=== PATIENT | female | born 1955 | race Caucasian/White ===

== ENCOUNTER 2016-12-24 13:41 | Inpatient (IN) | payer OTHER ==
[~2016-12-24] VITALS: Ht 160 cm; Wt 50.6 kg
[~2016-12-24 13:41] MED LIST: ALBUAER; ASPI325T45 PO; BECL0.3A INH; CARV6.252 PO; DULO60CA44 PO; INSUINJ12 SC; LEVO100T PO; LSN/2025 PO; METF-384 PO; NRN/300 PO; NVLGI SC; SUMA25TA; TOPI50TA24 PO; TRAM-453 PO; duoneb NEB
[2016-12-24] MEDS ORDERED: PROC1TAB5 PO (14:02)
[2016-12-24] MEDS ORDERED: DICY10CA12 PO (14:02)
[2016-12-24] MEDS ORDERED: ALBUAER INH (14:02)
[2016-12-24] MEDS ORDERED: PANC1200 PO (14:02)
[2016-12-24] MEDS ORDERED: TOPI100T20 PO (14:02)
[2016-12-24] MEDS ORDERED: LISI10TA PO (14:02)
[2016-12-24] MEDS ORDERED: SYMIN160 INH (14:02)
[2016-12-24] MEDS ORDERED: XLD/500 PO (14:02)
[2016-12-24] MEDS ORDERED: RIZA5TAB10 PO (14:02)
[2016-12-24] MEDS ORDERED: IPRASOL4 INH (14:02)
[2016-12-24] MEDS ORDERED: CHOL4POW12 PO (14:02)
[2016-12-24] MEDS ORDERED: LORA-741 PO (14:02)
[2016-12-24] MEDS ORDERED: OXYC1TAB3 PO (14:02)
[2016-12-24] MEDS ORDERED: SUCR1TAB PO (14:02)
[2016-12-24] MEDS ORDERED: DIPH-416 PO (14:02)
[2016-12-24] MEDS ORDERED: IBUP-1050 PO (14:02)
[2016-12-24] MEDS ORDERED: SODIUM CHLORIDE 0.9% 1000ML 1,000 ML IV ONE (14:10)
[2016-12-24] MEDS ORDERED: SODIUM CHLORIDE 0.9% 1000ML 1,000 ML IV STA (14:10)
--- NOTE | 2016-12-24 14:25 | EMERGENCY ROOM VISIT NOTE ---
History Report prepared by Javier: Sp Farias Under the Supervision of: Dr. Danny Kinney M.D. First contact with patient: 13:51 Chief Complaint: INFECTION Stated Complaint: INFECTION, DEHYDRATION History of Present Illness The patient is a 61 year old female who presents to the Emergency Room with complaints of worsening diarrhea and fever for the past six days. The patient states that she currently is being treated for pancreatic cancer. She states that her fevers got to 101.4, and she additionally has been nauseous, been vomiting minimally, shortness of breath while walking, and a cough. The patient denies any headache, urinary symptoms, melena, and hematochezia. She states that no one else around her is sick, and she is not on blood thinners. She states that she has not been able to eat or drink. The patient states that she has a history of a Whipple procedure on August 16, chronic pancreatitis, and she had chemo two weeks ago. Source of History: patient Onset: 6 days ago Position: other (global) Quality: other (fever and diarrhea) Timing: worsening Associated Symptoms: + cough, + SOB, + nausea, + vomiting, No headache, No melena, No hematochezia, No urinary symptoms Review of Systems See HPI for pertinent positives & negatives. A total of 10 systems reviewed and were otherwise negative. Past Medical & Surgical Medical Problems: (1) Chronic pancreatitis (2) Dehydration (3) GERD (gastroesophageal reflux disease) (4) HTN (hypertension) (5) Hypothyroidism (6) Insulin dependent diabetes mellitus (7) Leukocytosis (8) Pancreatic cancer (9) RLS (restless legs syndrome) Surgical Problems: (1) H/O dilation and curettage (2) H/O exploratory laparotomy (3) History of hysterectomy (4) Hx of tonsillectomy (5) Whipple procedure Old medical records were reviewed. Nurse's notes were reviewed and I agree with. Family History Diabetes mellitus FH: heart disease Hypertension Social History Smoking Status: Former Smoker Drug Use: none Marital Status: Housing Status: lives with significant other Occupation Status: retired Current/Historical Medications Scheduled Budesonide/Formoterol Fumarate (Symbicort 160/4.5 Inhaler ), 2 PUFFS INH BID Capecitabine (Xeloda), 500 MG PO UD Duloxetine Hcl (Cymbalta), 60 MG PO DAILY Levothyroxine Sodium (Synthroid), 100 MCG PO DAILY Lisinopril (Prinivil), 10 MG PO DAILY Sucralfate (Sucralfate), 1 GM PO BID Topiramate (Topamax), 50 MG PO HS Scheduled PRN Albuterol Sulfate (Proventil Hfa), 2 PUFFS INH Q4 PRN for SOB/Wheezing Dicyclomine Hcl (Dicyclomine Hcl), 10 MG PO Q8 PRN for abdominal pain Diphenoxylate/Atropine (Lomotil), 1 TAB PO QID PRN for Diarrhea Ibuprofen (Advil), 200 MG PO Q4 PRN for Pain Ipratropium-Albuterol (Duoneb), 1 TREATMENT INH Q4H PRN for Shortness of Breath Lorazepam (Ativan), 0.5 MG PO Q12 PRN for ANXIETY/INSOMNIA Ondansetron Hcl (Zofran), 4 MG PO Q8 PRN for Nausea Oxycodone Ir (Roxicodone Ir), 5-10 MG PO Q4 PRN for Moderate Pain Prochlorperazine Maleate (Compazine), 10 MG PO Q6H PRN for NAUSEA Rizatriptan Benzoate (Maxalt), 5 MG PO UD PRN for Migraine Tramadol Hcl (Ultram), 50 MG PO Q4H PRN for Pain Allergies Coded Allergies: Penicillins (Verified Allergy, Severe, ANAPHYLAXIS, 12/24/16) Sulfa Antibiotics (Verified Allergy, Severe, ANAPHYLAXIS, 12/24/16) Moxifloxacin (Verified Allergy, Intermediate, ITCHINESS/SKIN IRRITATION, ) Nickel (Unverified Allergy, Unknown, LOCAL SKIN IRRIRATION, 12/24/16) Physical Exam Vital Signs Date Time Temp Pulse Resp B/P (MAP) Pulse Ox O2 Delivery O2 Flow Rate FiO2 12/24/16 18:02 97 Room Air 12/24/16 17:35 105 12 142/94 97 Room Air 12/24/16 15:30 85 15 127/68 100 Room Air 12/24/16 13:43 36.4 110 20 115/76 98 Room Air Physical Exam General: Chronically ill-appearing, somewhat cachectic appearing older female. No acute distress. HEENT: Normal cephalic atraumatic. Pupils are equal round and reactive to light. Sclerae anicteric. Extraocular movements are intact. Oropharynx is pink with moist mucous membranes. No swelling of the mouth lips or tongue. Neck: Supple with a midline trachea. No meningeal signs or stiffness, no JVD or bruits. No Stridor. Chest: A-port in the right chest. Clear to auscultation bilaterally. No wheezes or rhonchi. No increased work of breathing. Heart: regular rate and rhythm. Abdomen: Soft nontender, nondistended without rebound guarding or rigidity. Extremities: No cyanosis clubbing or edema. No calf tenderness or assymetry Spine/Back. Non tender to palpation. No CVA tenderness Skin: Good turgor without rashes. Neurologic exam: Cranial nerves two through 12 are intact. Motor and sensation are intact and symmetrical throughout. Medical Decision & Procedures ER Provider Diagnostic Interpretation: Radiology results as stated below per my review and radiologist interpretation: CHEST ONE VIEW PORTABLE CLINICAL HISTORY: 61 years-old Female presenting with CHEST PAIN. TECHNIQUE: Portable upright AP view of the chest was obtained. COMPARISON: None. FINDINGS: Right internal jugular Mediport terminates in the superior vena cava. Minimal atherosclerosis of the aortic arch. Cardiomediastinal silhouette otherwise normal. Lungs and pleural spaces clear. Osseous structures normal. Partially visualized catheter projects over the epigastrium. IMPRESSION: 1. No acute cardiopulmonary disease. Electronically signed by: Shane Austin M.D. 12/24/2016 2:36 PM Dictated Date/Time: 12/24/2016 2:34 PM ABD/PELVIS NO IV OR ORAL CONT CT DOSE: 210.32 mGycm HISTORY: Pain diffuse abd pain TECHNIQUE: Multiaxial CT images of the abdomen and pelvis were performed without contrast. A dose lowering technique was utilized adhering to the principles of ALARA. COMPARISON STUDY: None FINDINGS: Lung bases are clear. Fatty replacement of the liver. Air within the biliary ductal system presumably secondary to prior cholecystectomy and sphincterotomy. Stent within the pancreatic duct. Kidneys negative for hydronephrosis. Mild generalized distention of the small bowel as well as colon. Mild hyperplastic change of the adrenals. Several nonspecific mesenteric nodes. No evidence for colonic or sigmoid distention. An obstructing lesion within the colon is not identified. There appears to be wall thickening of the gastric body with evidence for a probable anastomosis and/or partial gastric resection. Slight body wall anasarca. Degenerative change of the osseous structures throughout. IMPRESSION: 1. Considerable postoperative change consistent with what is potentially a partial gastric resection, wall thickening of the residual stomach, as well as evidence for pancreatic drainage tube or stent placement and air within the biliary ductal system presumably secondary to prior sphincterotomy 2. Fatty infiltration of the liver. 3. General colonic and small bowel ileus versus the possibility of a distal colonic obstructive process. 4. Mild body wall anasarca. 5. No evidence for ascites, pneumatosis, or free air. 6. No evidence for abscess or collection. The above report was generated using voice recognition software. It may contain grammatical, syntax or spelling errors. Electronically signed by: Isai Meyer M.D. 12/24/2016 4:31 PM Dictated Date/Time: 12/24/2016 4:25 PM Laboratory Results 12/24/16 16:29 Red Blood Count 2.81, Mean Corpuscular Volume 84.3, Mean Corpuscular Hemoglobin 29.2, Mean Corpuscular Hemoglobin Concent 34.6, Mean Platelet Volume 9.2 12/24/16 16:29 Test 12/24/16 15:00 12/24/16 15:32 12/24/16 16:29 Nucleated RBC Absolute Count (auto) 0.03 K/uL (0-0) Nucleated Red Blood Cells % 0.3 % Bedside Lactic Acid Venous 1.01 mmol/L (0.90-1.70) White Blood Count 20.20 K/uL (4.8-10.8) Red Blood Count 2.81 M/uL (4.2-5.4) Hemoglobin 8.2 g/dL (12.0-16.0) Hematocrit 23.7 % (37-47) Mean Corpuscular Volume 84.3 fL (80-100) Mean Corpuscular Hemoglobin 29.2 pg (25-34) Mean Corpuscular Hemoglobin Concent 34.6 g/dl (32-36) Platelet Count 703 K/uL (130-400) Mean Platelet Volume 9.2 fL (7.4-10.4) RDW Standard Deviation 55.0 fL (36.4-46.3) RDW Coefficient of Variation 19.1 % (11.5-14.5) Neutrophils % (Manual) 74.1 % Lymphocytes % (Manual) 11.6 % Monocytes % (Manual) 11.6 % Eosinophils % (Manual) 0.9 % Metamyelocytes % 1.8 % Neutrophils # (Manual) 14.97 K/uL (1.4-6.5) Total Absolute Neutrophils 14.97 K/uL (1.4-6.5) Lymphocytes # (Manual) 2.34 K/uL (1.2-3.4) Total Absolute Lymphocytes 2.34 K/uL (1.2-3.4) Monocytes # (Manual) 2.34 K/uL (0.11-0.59) Eosinophils # (Manual) 0.18 K/uL (0-0.5) Metamyelocytes # 0.36 K/uL (0-0) Dohle Bodies 1+ Anisocytosis PRESENT Ovalocytes 1+ Urine Color YELLOW Urine Appearance CLEAR (CLEAR) Urine pH 6.0 (4.5-7.5) Urine Specific [place] 1.015 (1.000-1.030) Urine Protein TRACE (NEG) Urine Glucose (UA) NEG (NEG) Urine Ketones NEG (NEG) Urine Occult Blood NEG (NEG) Urine Nitrite NEG (NEG) Urine Bilirubin NEG (NEG) Urine Urobilinogen NEG (NEG) Urine Leukocyte Esterase NEG (NEG) Urine WBC (Auto) 10-30 /hpf (0-5) Urine RBC (Auto) 0-4 /hpf (0-4) Urine Hyaline Casts (Auto) 1-5 /lpf (0-5) Urine Epithelial Cells (Auto) 10-20 /lpf (0-5) Urine Bacteria (Auto) NEG (NEG) Anion Gap 11.0 mmol/L (3-11) Est Creatinine Clear Calc Drug Dose 43.4 ml/min Estimated GFR () 74.1 Estimated GFR (Non- 63.9 BUN/Creatinine Ratio 13.3 (10-20) Calcium Level 7.8 mg/dl (8.5-10.1) Magnesium Level 1.6 mg/dl (1.8-2.4) Total Bilirubin 0.2 mg/dl (0.2-1) Direct Bilirubin < 0.1 mg/dl (0-0.2) Aspartate Amino Transf (AST/SGOT) 10 U/L (15-37) Alanine Aminotransferase (ALT/SGPT) 11 U/L (12-78) Alkaline Phosphatase 86 U/L (45-117) Troponin I < 0.015 ng/ml (0-0.045) Total Protein 4.0 gm/dl (6.4-8.2) Albumin 1.4 gm/dl (3.4-5.0) Lipase 185 U/L (73-393) Hepatitis C Antibody Screen NEG (NEG) Laboratory studies as stated above per my review. Medications Administered Medications (Trade) Dose Ordered Sig/Jesse Route Start Time Stop Time Status Last Admin Dose Admin Sodium Chloride 1,000 ml @ 999 mls/hr Q1H1M STAT IV 12/24/16 14:10 12/24/16 15:10 DC 12/24/16 14:10 999 MLS/HR Sodium Chloride 1,000 ml @ 200 mls/hr Q5H ONCE IV 12/24/16 14:10 12/24/16 19:09 DC 12/24/16 14:10 200 MLS/HR Levofloxacin (Levaquin / D5W) 750 mg NOW STAT IV 12/24/16 16:54 12/24/16 16:56 DC 12/24/16 17:12 750 MG Potassium Chloride (Klor-Con M10) 40 meq NOW STAT PO 12/24/16 17:18 12/24/16 17:36 DC 12/24/16 17:44 40 MEQ Potassium Chloride (Kcl 10 Meq / Wtr) 20 meq STK-MED ONCE IV 12/24/16 17:40 12/24/16 17:41 DC 12/24/16 17:44 20 MEQ Prochlorperazine Maleate (Compazine Tab) 10 mg STK-MED ONCE .ROUTE 12/24/16 18:01 12/24/16 18:02 DC 12/24/16 18:03 10 MG ECG Indication: other Rate (beats per minute): 88 Rhythm: normal sinus Findings: no acute ischemic change, no ectopy, other (Low voltage QRS, Non specific T wave abnormality) ED Course 1351: Past medical records reviewed. The patient was evaluated in room B2, and a complete history and physical examination were performed. 1410: Sodium Chloride 1000 ml @ 200 mls/hr IV, Sodium Chloride 1000 ml @ 999 mls /hr IV 1650: I reevaluated the patient, and she was resting 1654: Levofloxacin 750mg IV 1707: Discussed the patient's case with Dianne Dhillon PA-C. The patient will be evaluated for further management. Medical Decision Differentials include, but are not limited to; sepsis, dehydration, pancreatitis , C diff, electrolyte or metabolic abnormality. This patient comes in as described above. She has a complicated history of advanced pancreatic cancer and has felt sick since last week she had had diarrhea she's had a fever however is not had a fever for about 5 days she feels weak and dehydrated. She had blood work done today which shows an elevated white count as well as a low CO2. She's had some mild intermittent abdominal pain at times. She appears chronically ill on exam but nontoxic otherwise. Her a port was accessed blood cultures were obtained and lactic acid was not significantly elevated. Her white count was elevated 20,000 however. She's had nothing to suggest pneumonia. She has nothing to suggest acute coronary syndrome or significant arrhythmia. She had a CAT scan which shows an ileus. I did give her Levaquin IV for possible sepsis. She has multiple significant antibiotic allergies and tells me she's had Levaquin before. Stool studies have been obtained recently were negative for C. difficile. I did repeat those here as well as well as blood cultures. I do think she needs be admitted for hydration and to rule out sepsis or other pathology. I have consulted the [facility] hospitalist and she was seen in the ER. Medication Reconcilliation Current Medication List: was personally reviewed by me Blood Pressure Screening Patient's blood pressure: Normal blood pressure Consults Time Called: 1658 Consulting Physician: Piper Eden PA-C Returned Call: [phone] Discussed the patient's case with Dianne Dhillon PA-C. The patient will be evaluated for further management. Impression Primary Impression: Sepsis Additional Impressions: Dehydration Diarrhea Pancreatic cancer Scribe Attestation The scribe's documentation has been prepared under my direction and personally reviewed by me in its entirety. I confirm that the note above accurately reflects all work, treatment, procedures, and medical decision making performed by me. Departure Information Dispostion Being Evaluated By Hospitalist Referrals Kevin Malhotra DO (PCP) Patient Instructions My [facility] Problem Qualifiers
--- NOTE | 2016-12-24 14:37 | DIAGNOSTIC IMAGING REPORT ---
CHEST ONE VIEW PORTABLE CLINICAL HISTORY: 61 years-old Female presenting with CHEST PAIN. TECHNIQUE: Portable upright AP view of the chest was obtained. COMPARISON: None. FINDINGS: Right internal jugular Mediport terminates in the superior vena cava. Minimal atherosclerosis of the aortic arch. Cardiomediastinal silhouette otherwise normal. Lungs and pleural spaces clear. Osseous structures normal. Partially visualized catheter projects over the epigastrium. IMPRESSION: 1. No acute cardiopulmonary disease. Electronically signed by: Shane Austin M.D. 12/24/2016 2:36 PM Dictated Date/Time: 12/24/2016 2:34 PM
[2016-12-24 16:15] LABS: COMPLETE YES
--- NOTE | 2016-12-24 16:32 | DIAGNOSTIC IMAGING REPORT ---
ABD/PELVIS NO IV OR ORAL CONT CT DOSE: 210.32 mGycm HISTORY: Pain diffuse abd pain TECHNIQUE: Multiaxial CT images of the abdomen and pelvis were performed without contrast. A dose lowering technique was utilized adhering to the principles of ALARA. COMPARISON STUDY: None FINDINGS: Lung bases are clear. Fatty replacement of the liver. Air within the biliary ductal system presumably secondary to prior cholecystectomy and sphincterotomy. Stent within the pancreatic duct. Kidneys negative for hydronephrosis. Mild generalized distention of the small bowel as well as colon. Mild hyperplastic change of the adrenals. Several nonspecific mesenteric nodes. No evidence for colonic or sigmoid distention. An obstructing lesion within the colon is not identified. There appears to be wall thickening of the gastric body with evidence for a probable anastomosis and/or partial gastric resection. Slight body wall anasarca. Degenerative change of the osseous structures throughout. IMPRESSION: 1. Considerable postoperative change consistent with what is potentially a partial gastric resection, wall thickening of the residual stomach, as well as evidence for pancreatic drainage tube or stent placement and air within the biliary ductal system presumably secondary to prior sphincterotomy 2. Fatty infiltration of the liver. 3. General colonic and small bowel ileus versus the possibility of a distal colonic obstructive process. 4. Mild body wall anasarca. 5. No evidence for ascites, pneumatosis, or free air. 6. No evidence for abscess or collection. The above report was generated using voice recognition software. It may contain grammatical, syntax or spelling errors. Electronically signed by: Isai Meyer M.D. 12/24/2016 4:31 PM Dictated Date/Time: 12/24/2016 4:25 PM
[2016-12-24 16:47] LABS: HEMATOCRIT 23.7 % (37-47); MEAN CELL VOLUME 84.3 fL (80-100); MEAN CORPUSCULAR HEMOGLOBIN 29.2 pg (25-34); MEAN CORPUSCULAR HGB CONC 34.6 g/dl (32-36); MEAN PLATELET VOLUME 9.2 fL (7.4-10.4); PLATELET COUNT 703 K/uL (130-400); RED BLOOD COUNT 2.81 M/uL (4.2-5.4)
[2016-12-24 16:52] LABS: URINE APPEARANCE CLEAR (CLEAR); URINE BILIRUBIN NEG (NEG); URINE COLOR YELLOW; URINE NITRITE NEG (NEG); URINE SPECIFIC GRAVITY 1.015 (1.000-1.030); UROBILINOGEN NEG (NEG)
[2016-12-24 16:54] LABS: MANUAL MICROSCOPIC REQUIRED? NO; REVIEW REQ? NO
[2016-12-24] MEDS ORDERED: LEVAQUIN 750MG / 150ML D5W IV STA (16:54)
[2016-12-24 17:05] LABS: ALT/SGPT 11 U/L (12-78); BLOOD UREA NITROGEN 13 mg/dl (7-18); BUN/CREATININE RATIO 13.3 (10-20); CALCIUM 7.8 mg/dl (8.5-10.1); CARBON DIOXIDE 16 mmol/L (21-32); CHLORIDE 114 mmol/L (98-107); CREATININE 0.97 mg/dl (0.60-1.20); GLUCOSE 140 mg/dl (70-99); POTASSIUM 2.6 mmol/L (3.5-5.1); SODIUM 141 mmol/L (136-145)
[2016-12-24 17:10] LABS: ALKALINE PHOSPHATASE 86 U/L (45-117); AST/SGOT 10 U/L (15-37)
[2016-12-24] MEDS ORDERED: POTASSIUM CHLORIDE 10 MEQ TABCR PO STA (17:18)
[2016-12-24 17:29] LABS: ANISOCYTOSIS PRESENT; COMPLETE YES; DOHLE BODIES 1+; EOSINOPHIL % 0.9 %; LYMPH ABS # 2.34 K/uL (1.2-3.4); LYMPHOCYTE % 11.6 %; META ABS # 0.36 K/uL (0-0); METAMYELOCYTE % 1.8 %; NEUTROPHILS % 74.1 %; OVALOCYTES 1+
[2016-12-24] MEDS ORDERED: POTASSIUM CHLORIDE 10 MEQ / 100ML WTR IV ONE (17:40)
[2016-12-24] MEDS ORDERED: TPM/50 PO (17:58)
[2016-12-24] MEDS ORDERED: ONDA4TAB46 PO (17:58)
[2016-12-24] MEDS ORDERED: PROCHLORPERAZINE MALEATE 5 MG TAB ONE (18:01)
[2016-12-24 18:02] VITALS: O2SAT 97; Ht 160 cm; Wt 50.6 kg
[2016-12-24] MEDS ORDERED: ONDANSETRON INJ 2 MG/ML 2 ML VIAL IV PRN (18:15)
[2016-12-24] MEDS ORDERED: OXYCODONE HCL IR 5 MG TAB (IMMEDIATE RELEASE) PO PRN (18:30)
[2016-12-24] MEDS ORDERED: DEXTROSE 50% 50 ML SYR IV PRN (18:30)
[2016-12-24] MEDS ORDERED: GLUCAGON FOR INJ 1 MG VIAL SQ PRN (18:30)
[2016-12-24] MEDS ORDERED: ALBUTEROL HFA 8 GM INHALER INH PRN (18:30)
[2016-12-24] MEDS ORDERED: GLUCOSE 40% GEL 15 GM TUBE PO PRN (18:30)
[2016-12-24] MEDS ORDERED: GLUCOSE 10 TABS/TUBE PO PRN (18:30)
[2016-12-24] MEDS ORDERED: ALBUT/IPRATROP 3MG/0.5MG NEB 3 ML VIAL INH PRN (18:30)
[2016-12-24 19:14] VITALS: O2SAT 100
[2016-12-24 19:30] VITALS: BP 161/82; PULSE 88; TEMP 36.5; O2SAT 100
[2016-12-24] MEDS ORDERED: PROCHLORPERAZINE MALEATE 10 MG TAB PO ONE (20:00)
[2016-12-24] MEDS ORDERED: POTASSIUM CHLORIDE 10 MEQ TABCR PO ONE (20:00)
--- NOTE | 2016-12-24 20:11 | History and Physical ---
History & Physical Date & Time of Service: Dec 24, 2016 at 18:26 Chief Complaint: Infection, Dehydration Primary Care Physician: Kevin Malhotra DO History of Present Illness Source: patient, clinic records This is a 61 y/o female with PMH of pancreatic cancer s/p Whipple on chemotherapy and other problems listed below who presents to the ED with diarrhea. Patient follows with Dr. Gagan Goldstein for oncology. Patient last received IV chemo on 12/10 and last oral chemo was completed on 12/06. She was seen by Lyndsay Chen PA-C at clinic today then was sent to the ER instead of getting her chemo treatment. Patient reports worsening of chronic diarrhea starting 5 days ago with up to 20 liquid BM per day. She had two days of fever ( Tmax 101.4) and chills, with last fever 5 days ago. She reports associated weight loss of 10 lb in the past week (on top of 80 lb wt loss since CA dx), CHUA , lightheadedness, fatigue. States she "can't keep anything in" including food and liquids due to diarrhea. She was taking several tabs of Lomotil per day. Last BM was last night. Passing small amount of flatus today. Pt denies HODGE, URI symptoms, cough, SOB, chest pain, abdominal pain, hematochezia, melena, urinary changes, rash, edema. Denies issues w/ her port. Last abx were several months ago when she was treated with vancomycin for her second episode of C. diff. Patient states she was tested for C. 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 Past Medical/Surgical History Medical Problems: (1) Chronic pancreatitis Status: Chronic (2) GERD (gastroesophageal reflux disease) Status: Chronic (3) HTN (hypertension) Status: Chronic (4) Hypothyroidism Status: Chronic (5) Insulin dependent diabetes mellitus Status: Chronic (6) Pancreatic cancer Status: Chronic (7) RLS (restless legs syndrome) Status: Chronic Surgical Problems: (1) H/O dilation and curettage Status: Chronic (2) H/O exploratory laparotomy Status: Chronic (3) History of hysterectomy Status: Chronic (4) Hx of tonsillectomy Status: Chronic (5) Whipple procedure Status: Chronic Family History Diabetes mellitus FH: heart disease Hypertension Social History Smoking Status: Former Smoker Alcohol Use: none Drug Use: none Marital Status: Housing status: lives with significant other Occupational Status: retired Allergies Coded Allergies: Penicillins (Verified Allergy, Severe, ANAPHYLAXIS, 12/24/16) Sulfa Antibiotics (Verified Allergy, Severe, ANAPHYLAXIS, 12/24/16) Moxifloxacin (Verified Allergy, Intermediate, ITCHINESS/SKIN IRRITATION, ) Nickel (Unverified Allergy, Unknown, LOCAL SKIN IRRIRATION, 12/24/16) Home Medications Scheduled Budesonide/Formoterol Fumarate (Symbicort 160/4.5 Inhaler ), 2 PUFFS INH BID Capecitabine (Xeloda), 500 MG PO UD Duloxetine Hcl (Cymbalta), 60 MG PO DAILY Levothyroxine Sodium (Synthroid), 100 MCG PO DAILY Lisinopril (Prinivil), 10 MG PO DAILY Sucralfate (Sucralfate), 1 GM PO BID Topiramate (Topamax), 50 MG PO HS Scheduled PRN Albuterol Sulfate (Proventil Hfa), 2 PUFFS INH Q4 PRN for SOB/Wheezing Dicyclomine Hcl (Dicyclomine Hcl), 10 MG PO Q8 PRN for abdominal pain Diphenoxylate/Atropine (Lomotil), 1 TAB PO QID PRN for Diarrhea Ibuprofen (Advil), 200 MG PO Q4 PRN for Pain Ipratropium-Albuterol (Duoneb), 1 TREATMENT INH Q4H PRN for Shortness of Breath Lorazepam (Ativan), 0.5 MG PO Q12 PRN for ANXIETY/INSOMNIA Ondansetron Hcl (Zofran), 4 MG PO Q8 PRN for Nausea Oxycodone Ir (Roxicodone Ir), 5-10 MG PO Q4 PRN for Moderate Pain Prochlorperazine Maleate (Compazine), 10 MG PO Q6H PRN for NAUSEA Rizatriptan Benzoate (Maxalt), 5 MG PO UD PRN for Migraine Tramadol Hcl (Ultram), 50 MG PO Q4H PRN for Pain Review of Systems Ten systems reviewed and negative except as noted in HPI. Physical Exam Vital Signs Date Time Temp Pulse Resp B/P (MAP) Pulse Ox O2 Delivery O2 Flow Rate FiO2 12/24/16 18:02 97 Room Air 12/24/16 17:35 105 12 142/94 97 Room Air 12/24/16 15:30 85 15 127/68 100 Room Air 12/24/16 13:43 36.4 110 20 115/76 98 Room Air General Appearance: no apparent distress, + cachetic, + pertinent finding ( alert cooperative chronically ill 61 y/o female, at bedside) Head: normocephalic, atraumatic Eyes: normal inspection, PERRL, EOMI ENT: hearing grossly normal, pharynx normal Neck: no adenopathy, trachea midline Respiratory/Chest: lungs clear, normal breath sounds, no respiratory distress, no accessory muscle use, + pertinent finding (port in left chest, no eythema ) Cardiovascular: regular rate, rhythm, no murmur Abdomen/GI: normal bowel sounds, non tender, soft Back: no CVA tenderness Extremities/Musculoskelatal: no calf tenderness, no pedal edema Neurologic/Psych: alert, normal mood/affect, oriented x 3 Skin: normal color, warm/dry Diagnostics Laboratory Results Results Past 24 Hours Test 12/24/16 15:00 12/24/16 15:32 12/24/16 16:29 Range/Units White Blood Count 20.20 4.8-10.8 K/uL Red Blood Count 2.81 4.2-5.4 M/uL Hemoglobin 8.2 12.0-16.0 g/dL Hematocrit 23.7 37-47 % Mean Corpuscular Volume 84.3 80-100 fL Mean Corpuscular Hemoglobin 29.2 25-34 pg Mean Corpuscular Hemoglobin Concent 34.6 32-36 g/dl Platelet Count 703 130-400 K/uL Mean Platelet Volume 9.2 7.4-10.4 fL RDW Standard Deviation 55.0 36.4-46.3 fL RDW Coefficient of Variation 19.1 11.5-14.5 % Nucleated RBC Absolute Count (auto) 0.03 0-0 K/uL Nucleated Red Blood Cells % 0.3 % Bedside Lactic Acid Venous 1.01 0.90-1.70 mmol/L Neutrophils % (Manual) 74.1 % Lymphocytes % (Manual) 11.6 % Monocytes % (Manual) 11.6 % Eosinophils % (Manual) 0.9 % Metamyelocytes % 1.8 % Neutrophils # (Manual) 14.97 1.4-6.5 K/uL Total Absolute Neutrophils 14.97 1.4-6.5 K/uL Lymphocytes # (Manual) 2.34 1.2-3.4 K/uL Total Absolute Lymphocytes 2.34 1.2-3.4 K/uL Monocytes # (Manual) 2.34 0.11-0.59 K/uL Eosinophils # (Manual) 0.18 0-0.5 K/uL Metamyelocytes # 0.36 0-0 K/uL Dohle Bodies 1+ Anisocytosis PRESENT Ovalocytes 1+ Urine Color YELLOW Urine Appearance CLEAR CLEAR Urine pH 6.0 4.5-7.5 Urine Specific [place] 1.015 1.000-1.030 Urine Protein TRACE NEG Urine Glucose (UA) NEG NEG Urine Ketones NEG NEG Urine Occult Blood NEG NEG Urine Nitrite NEG NEG Urine Bilirubin NEG NEG Urine Urobilinogen NEG NEG Urine Leukocyte Esterase NEG NEG Urine WBC (Auto) 10-30 0-5 /hpf Urine RBC (Auto) 0-4 0-4 /hpf Urine Hyaline Casts (Auto) 1-5 0-5 /lpf Urine Epithelial Cells (Auto) 10-20 0-5 /lpf Urine Bacteria (Auto) NEG NEG Sodium Level 141 136-145 mmol/L Potassium Level 2.6 3.5-5.1 mmol/L Chloride Level 114 98-107 mmol/L Carbon Dioxide Level 16 21-32 mmol/L Anion Gap 11.0 3-11 mmol/L Blood Urea Nitrogen 13 7-18 mg/dl Creatinine 0.97 0.60-1.20 mg/dl Est Creatinine Clear Calc Drug Dose 43.4 ml/min Estimated GFR () 74.1 Estimated GFR (Non- 63.9 BUN/Creatinine Ratio 13.3 10-20 Random Glucose 140 70-99 mg/dl Calcium Level 7.8 8.5-10.1 mg/dl Magnesium Level 1.6 1.8-2.4 mg/dl Total Bilirubin 0.2 0.2-1 mg/dl Direct Bilirubin < 0.1 0-0.2 mg/dl Aspartate Amino Transf (AST/SGOT) 10 15-37 U/L Alanine Aminotransferase (ALT/SGPT) 11 12-78 U/L Alkaline Phosphatase 86 45-117 U/L Troponin I < 0.015 0-0.045 ng/ml Total Protein 4.0 6.4-8.2 gm/dl Albumin 1.4 3.4-5.0 gm/dl Lipase 185 73-393 U/L Microbiology Results 12/24/16 Blood Culture, Received Pending 12/24/16 Blood Culture, Received Pending Diagnostic Radiology CHEST ONE VIEW PORTABLE IMPRESSION: 1. No acute cardiopulmonary disease. ABD/PELVIS NO IV OR ORAL CONT IMPRESSION: 1. Considerable postoperative change consistent with what is potentially a partial gastric resection, wall thickening of the residual stomach, as well as evidence for pancreatic drainage tube or stent placement and air within the biliary ductal system presumably secondary to prior sphincterotomy 2. Fatty infiltration of the liver. 3. General colonic and small bowel ileus versus the possibility of a distal colonic obstructive process. 4. Mild body wall anasarca. 5. No evidence for ascites, pneumatosis, or free air. 6. No evidence for abscess or collection. EKG NSR, low voltage QRS, nonspecific T wave abnormality, as per cardiology read Impression Assessment and Plan DIARRHEA In setting of pancreatic CA s/p Whipple on chemotherapy, hx chronic pancreatitis , history of C. diff CT a/p- postoperative change, fatty liver, general colonic and small bowel ileus versus the possibility of a distal colonic obstructive process Check stool for C. diff, stool culture, WBC smear Place on empiric Cipro and Flagyl Clinically dehydrated- continue IVF's Clear liquid diet Consult GI HYPOKALEMIA/ HYPOMAGNESEMIA Secondary to diarrhea, poor PO intake Replace and monitor LEUKOCYTOSIS Met SIRS criteria with leukocytosis (WBC 20K), tachycardia (resolved, may be 2/ 2 dehydration), afebrile, no hypotension, POC lactic acid WNL Infectious workup- CXR negative; UA negative; port does not appear infected; blood cultures pending; check stool culture and C. diff Received empiric Levaquin in ER; changed to Cipro/Flagyl for possible GI infection Recheck CBC in am PANCREATIC CA S/p Whipple, on chemotherapy Follows with Dr. Gagan Goldstein MALNUTRITION Consult wellness ambassador HYPERTENSION BP is stable Continue lisinopril DM TYPE 2 Novolog sliding scale coverage ASTHMA Not in exacerbation Continue home inhalers DEPRESSION/ ANXIETY Continue Cymbalta and Ativan HX MIGRAINES Continue Topamax HYPOTHYROIDISM Continue levothyroxine DVT PROPHYLAXIS Lovenox SQ CODE STATUS Full code per my discussion with the patient. Has a living will. Does not want prolonged life support. DISPOSITION Admission to telemetry Follows with Dr. Malhotra in [place] for primary care Patient seen in collaboration with Dr. Velasquez. Please see his addendum. Agree with above H and P.Briefly 61F with hx of pancreatic cancer s/p Whipple procedure and on chemo comes because of ongoing severe diarrhea since last . Had one episode of temp spike at that time. Has hx of c diff but stool for c diff was negative when checked few days ago by her GI. Not eating much since diarrhea started. Lost about 10 pounds since last week. No chest pain or sob. Currently afebrile and hemodynamically stable. p/e Ge not in distress. 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 a/p persistent diarrea hx of c diff but recent check was negative leukocytosis present and had an episode of temp spike few days ago will re check for c diff and stool cx empiric iv Cipro and Flagyl iv fluids f/u labs Gi consulted Hypokalemia Hypomagnesemia from above will replace f/u labs Possible colonic and small bowel ileus from electrolyte abnormalities? will f/u kub in am Gi consulted Advanced Directives Existing Living Will: Yes Existing Power of Junior Marketing Associate: Yes VTE Prophylaxis VTE Risk Assessment Done? Y/N: Yes Risk Level: High Given or contraindicated: Enoxaparin (Lovenox)SQ
[2016-12-24] MEDS ORDERED: ENOXAPARIN 40 MG/0.4 ML SYR SQ SCH (20:15)
[2016-12-24] MEDS: NSS + 20MEQ KCL 1000ML 1,000 ML IV SCH ×2 (20:34→23:59)
[2016-12-24 20:45] LABS: INR 1.1 (0.9-1.1)
[2016-12-24] MEDS: METRONIDAZOLE / NSS 500 MG in PREMIXED NSS 100 ML IV SCH (20:50)
[2016-12-24] MEDS: MAGNESIUM SULFATE 1GM / D5W 1 GM in PREMIXED IN D5W 100 ML IV SCH ×2 (20:51→22:01)
[2016-12-24] MEDS: TOPIRAMATE 25 MG TAB PO SCH (20:53)
[2016-12-24] MEDS: SUCRALFATE 1 GM TAB PO SCH (20:53)
[2016-12-24] MEDS: INSULIN ASPART 100 UNITS/ML 3 ML PEN SC SCH (20:54)
[2016-12-24] MEDS: BUDESONIDE/FORMOTEROL FUMARATE 160/4.5 60 PUFFS/INHALER INH SCH (21:00)
[2016-12-24] MEDS ORDERED: HEPARIN SOD 5000 UNIT/0.5 ML CARP SQ ONE (21:30)
[2016-12-24] MEDS: ACETAMINOPHEN 325 MG TAB PO PRN (22:01)
[2016-12-24] MEDS: LORAZEPAM 0.5 MG TAB PO PRN (22:02)
[2016-12-24] MEDS: TRAMADOL HCL 50 MG TAB PO PRN (22:02)
[2016-12-24] MEDS: POTASSIUM CHLR 10 MEQ / WTR 10 MEQ in PREMIXED WATER 100 ML IV SCH (23:06)
[2016-12-24 23:09] VITALS: BP 101/65; PULSE 98; TEMP 36.6; O2SAT 99
[2016-12-25] VITALS (10 sets, daily range): BP systolic 111–129; BP diastolic 62–83; PULSE 18–91; TEMP 36.2–36.8; O2SAT 95–100
[2016-12-25] MEDS: POTASSIUM CHLR 10 MEQ / WTR 10 MEQ in PREMIXED WATER 100 ML IV SCH (00:02)
[2016-12-25 04:33] LABS: MEAN CELL VOLUME 84.6 fL (80-100); MEAN CORPUSCULAR HEMOGLOBIN 28.8 pg (25-34); MEAN CORPUSCULAR HGB CONC 34.1 g/dl (32-36); MEAN PLATELET VOLUME 9.1 fL (7.4-10.4); PLATELET COUNT 710 K/uL (130-400); WHITE BLOOD COUNT 17.57 K/uL (4.8-10.8)
[2016-12-25 05:01] LABS: BUN/CREATININE RATIO 12.5 (10-20); CALCIUM 7.4 mg/dl (8.5-10.1); CREATININE 0.86 mg/dl (0.60-1.20); MAGNESIUM 2.3 mg/dl (1.8-2.4); POTASSIUM 4.2 mmol/L (3.5-5.1)
[2016-12-25] MEDS: NSS + 20MEQ KCL 1000ML 1,000 ML IV SCH ×3 (05:26→17:47)
[2016-12-25] MEDS: METRONIDAZOLE / NSS 500 MG in PREMIXED NSS 100 ML IV SCH ×3 (05:26→22:47)
[2016-12-25 05:49] LABS: COMPLETE YES; DOHLE BODIES 1+; ECHINOCYTES 1+; EOSINOPHIL % 3.5 %; LYMPH ABS # 5.96 K/uL (1.2-3.4); LYMPHOCYTE % 33.9 %; META ABS # 0.46 K/uL (0-0); METAMYELOCYTE % 2.6 %; NEUTROPHILS % 51.3 %; SCHISTOCYTES 1+
[2016-12-25] MEDS ORDERED: LEVOTHYROXINE 100 MCG TAB PO SCH (06:00)
[2016-12-25] MEDS: INSULIN ASPART 100 UNITS/ML 3 ML PEN SC SCH ×4 (07:00→20:26)
[2016-12-25] MEDS: CIPROFLOXACIN / D5W 400 MG in PREMIXED IN D5W 200 ML IV SCH ×2 (08:12→22:47)
[2016-12-25] MEDS: DULOXETINE HCL 60 MG CAP PO SCH (08:12)
[2016-12-25] MEDS: SUCRALFATE 1 GM TAB PO SCH ×2 (08:12→20:26)
[2016-12-25] MEDS: LISINOPRIL 10 MG TAB PO SCH (08:12)
[2016-12-25] MEDS: BUDESONIDE/FORMOTEROL FUMARATE 160/4.5 60 PUFFS/INHALER INH SCH ×2 (08:13→20:26)
[2016-12-25] MEDS: PROCHLORPERAZINE MALEATE 10 MG TAB PO PRN (08:14)
[2016-12-25] MEDS: HEPARIN SOD 5000 UNIT/0.5 ML CARP SQ SCH ×2 (08:17→20:34)
--- NOTE | 2016-12-25 08:53 | Progress Note ---
Subjective Date of Service: Dec 25, 2016. Subjective Pt evaluation today including: conversation w/ patient, physical exam, lab review, review of studies, review of inpatient medication list Saw/examined the patient in room 215 States she presented with diarrhea, multiple episodes throughout the day; >20 since Saturday night Was seen by Hem/Onc on Saturday, December 24 and was sent over to the ER for further evaluation Significantly reduced PO intake, and diarrhea persist Denies fevers/chills No abdominal pain States she has lost >10lbs. over the past week Problem List Medical Problems: (1) Diarrhea Status: Acute (2) Pancreatic cancer Status: Chronic (3) Sepsis Status: Acute Review of Systems Constitutional: + weight loss, + weakness, + fatigue, No fever, No chills, No sweats Respiratory: No cough, No sputum, No shortness of breath Cardiac: No chest pain Abdomen: + nausea, + diarrhea, No pain, No vomiting, No constipation, No GI bleeding Musculoskeletal: + joint pain (multiple joints) Female : No dysuria, No urinary frequency Heme: No abnormal bleeding/bruising Medications Current Inpatient Medications Medications (Trade) Dose Ordered Sig/Jesse Route Start Time Stop Time Status Last Admin Dose Admin Potassium Chloride/Sodium Chloride 1,000 ml @ 200 mls/hr Q5H IV 12/24/16 20:00 01/23/17 19:59 12/25/16 05:26 200 MLS/HR Ciprofloxacin/ Dextrose 400 mg/ Prmx 200 ml @ 100 mls/hr Q12 IV 12/25/16 09:00 01/04/17 08:59 12/25/16 08:12 100 MLS/HR Metronidazole 500 mg/Prmx 100 ml @ 100 mls/hr Q8 IV 12/24/16 20:00 01/03/17 19:59 12/25/16 05:26 100 MLS/HR Acetaminophen (Tylenol Tab) 650 mg Q4H PRN PO 12/24/16 18:15 01/23/17 18:14 12/24/16 22:01 650 MG Ondansetron HCl (Zofran Inj) 4 mg Q6H PRN IV 12/24/16 18:15 01/23/17 18:14 12/24/16 22:08 4 MG Albuterol (Ventolin Hfa Inhaler) 2 puffs Q4 PRN INH 12/24/16 18:30 01/23/17 18:29 Budesonide/ Formoterol Fumarate (Symbicort 160/ 4.5 Inh) 2 puffs BID INH 12/24/16 21:00 01/23/17 20:59 12/25/16 08:13 2 PUFFS Duloxetine HCl (Cymbalta Cap) 60 mg DAILY PO 12/25/16 09:00 01/24/17 08:59 12/25/16 08:12 60 MG Albuterol/ Ipratropium (Duoneb) 3 ml Q4H PRN INH 12/24/16 18:30 01/23/17 18:29 Levothyroxine Sodium (Synthroid Tab) 100 mcg DAILYBB PO 12/25/16 06:00 01/24/17 05:59 12/25/16 05:26 100 MCG Lisinopril (Zestril Tab) 10 mg DAILY PO 12/25/16 09:00 01/24/17 08:59 12/25/16 08:12 10 MG Lorazepam (Ativan Tab) 0.5 mg Q12 PRN PO 12/24/16 18:30 01/23/17 18:29 12/24/16 22:02 0.5 MG Oxycodone HCl (Roxicodone Immediate Rel Tab) 5 mg Q4 PRN PO 12/24/16 18:30 01/07/17 18:29 Prochlorperazine Maleate (Compazine Tab) 10 mg Q6H PRN PO 12/24/16 18:30 01/23/17 18:29 12/25/16 08:14 10 MG Sucralfate (Carafate Tab) 1 gm BID PO 12/24/16 21:00 01/23/17 20:59 12/25/16 08:12 1 GM Topiramate (Topamax Tab) 50 mg HS PO 12/24/16 21:00 01/23/17 20:59 12/24/16 20:53 50 MG Tramadol HCl (Ultram Tab) 50 mg Q4H PRN PO 12/24/16 18:30 01/23/17 18:29 12/24/16 22:02 50 MG Insulin Aspart (novoLOG ASPART) SLIDING SCALE If C... ACHS SC 12/24/16 21:00 01/23/17 20:59 Glucose (Glucose 40% Gel) 15-30 GRAMS 15 GRAMS... UD PRN PO 12/24/16 18:30 01/23/17 18:29 Glucose (Glucose Chew Tab) 4-8 Tablets 4 Tabl... UD PRN PO 12/24/16 18:30 01/23/17 18:29 Dextrose (Dextrose 50% 50ML Syringe) 25-50ML OF 50% DW IV FOR... UD PRN IV 12/24/16 18:30 01/23/17 18:29 Glucagon (Glucagon Inj) 1 mg UD PRN SQ 12/24/16 18:30 01/23/17 18:29 Heparin Sodium (Porcine) (Heparin Sq 5000 Unit/0.5ml) 5,000 unit Q12 SQ 12/25/16 09:00 01/24/17 08:59 12/25/16 08:17 5,000 UNIT Objective Vital Signs Date Time Temp Pulse Resp B/P (MAP) Pulse Ox O2 Delivery O2 Flow Rate FiO2 12/25/16 04:18 36.4 88 18 113/74 (87) 100 Room Air 12/25/16 04:00 Room Air 12/24/16 23:59 Room Air 12/24/16 23:09 36.6 98 16 101/65 (77) 99 Room Air 12/24/16 19:30 36.5 88 18 161/82 (108) 100 Room Air 12/24/16 19:14 91 14 131/87 100 12/24/16 18:02 97 Room Air 12/24/16 17:35 105 12 142/94 97 Room Air 12/24/16 15:30 85 15 127/68 100 Room Air 12/24/16 13:43 36.4 110 20 115/76 98 Room Air Physical Exam General Appearance: + mild distress (+weakness), + cachetic, + thin ENT: hearing grossly normal Respiratory/Chest: lungs clear, normal breath sounds, no respiratory distress, no accessory muscle use Cardiovascular: no edema, no murmur, + tachycardia Abdomen: non tender, soft, + abnormal bowel sounds (hyperactive bowel sounds in all four quadrants) Extremities: normal inspection, no pedal edema Neurologic/Psychiatric: no motor/sensory deficits, alert, normal mood/affect Laboratory Results Last 24 Hours Test 12/24/16 15:00 12/24/16 15:32 12/24/16 16:29 12/24/16 20:10 White Blood Count K/uL 20.20 K/uL Red Blood Count M/uL 2.81 M/uL Hemoglobin g/dL 8.2 g/dL Hematocrit % 23.7 % Mean Corpuscular Volume fL 84.3 fL Mean Corpuscular Hemoglobin pg 29.2 pg Mean Corpuscular Hemoglobin Concent g/dl 34.6 g/dl Platelet Count K/uL 703 K/uL Mean Platelet Volume fL 9.2 fL RDW Standard Deviation fL 55.0 fL RDW Coefficient of Variation % 19.1 % Nucleated RBC Absolute Count (auto) 0.03 K/uL Nucleated Red Blood Cells % 0.3 % Bedside Lactic Acid Venous 1.01 mmol/L Neutrophils % (Manual) 74.1 % Lymphocytes % (Manual) 11.6 % Monocytes % (Manual) 11.6 % Eosinophils % (Manual) 0.9 % Metamyelocytes % 1.8 % Neutrophils # (Manual) 14.97 K/uL Total Absolute Neutrophils 14.97 K/uL Lymphocytes # (Manual) 2.34 K/uL Total Absolute Lymphocytes 2.34 K/uL Monocytes # (Manual) 2.34 K/uL Eosinophils # (Manual) 0.18 K/uL Metamyelocytes # 0.36 K/uL Dohle Bodies 1+ Anisocytosis PRESENT Ovalocytes 1+ Prothrombin Time 12.0 SECONDS Prothromb Time International Ratio 1.1 Urine Color YELLOW Urine Appearance CLEAR Urine pH 6.0 Urine Specific [place] 1.015 Urine Protein TRACE Urine Glucose (UA) NEG Urine Ketones NEG Urine Occult Blood NEG Urine Nitrite NEG Urine Bilirubin NEG Urine Urobilinogen NEG Urine Leukocyte Esterase NEG Urine WBC (Auto) 10-30 /hpf Urine RBC (Auto) 0-4 /hpf Urine Hyaline Casts (Auto) 1-5 /lpf Urine Epithelial Cells (Auto) 10-20 /lpf Urine Bacteria (Auto) NEG Sodium Level 141 mmol/L Potassium Level 2.6 mmol/L Chloride Level 114 mmol/L Carbon Dioxide Level 16 mmol/L Anion Gap 11.0 mmol/L Blood Urea Nitrogen 13 mg/dl Creatinine 0.97 mg/dl Est Creatinine Clear Calc Drug Dose 43.4 ml/min Estimated GFR () 74.1 Estimated GFR (Non- 63.9 BUN/Creatinine Ratio 13.3 Random Glucose 140 mg/dl Calcium Level 7.8 mg/dl Magnesium Level 1.6 mg/dl Total Bilirubin 0.2 mg/dl Direct Bilirubin < 0.1 mg/dl Aspartate Amino Transf (AST/SGOT) 10 U/L Alanine Aminotransferase (ALT/SGPT) 11 U/L Alkaline Phosphatase 86 U/L Troponin I < 0.015 ng/ml Total Protein 4.0 gm/dl Albumin 1.4 gm/dl Lipase 185 U/L Hepatitis C Antibody Screen NEG Bedside Glucose 121 mg/dl Test 12/25/16 04:17 12/25/16 06:39 White Blood Count 17.57 K/uL Red Blood Count 2.60 M/uL Hemoglobin 7.5 g/dL Hematocrit 22.0 % Mean Corpuscular Volume 84.6 fL Mean Corpuscular Hemoglobin 28.8 pg Mean Corpuscular Hemoglobin Concent 34.1 g/dl Platelet Count 710 K/uL Mean Platelet Volume 9.1 fL RDW Standard Deviation 57.4 fL RDW Coefficient of Variation 19.4 % Nucleated RBC Absolute Count (auto) 0.03 K/uL Neutrophils % (Manual) 51.3 % Lymphocytes % (Manual) 33.9 % Monocytes % (Manual) 8.7 % Eosinophils % (Manual) 3.5 % Metamyelocytes % 2.6 % Nucleated Red Blood Cells % 0.2 % Neutrophils # (Manual) 9.01 K/uL Total Absolute Neutrophils 9.01 K/uL Lymphocytes # (Manual) 5.96 K/uL Total Absolute Lymphocytes 5.96 K/uL Monocytes # (Manual) 1.53 K/uL Eosinophils # (Manual) 0.61 K/uL Metamyelocytes # 0.46 K/uL Dohle Bodies 1+ Echinocytes 1+ Schistocytes 1+ Sodium Level 142 mmol/L Potassium Level 4.2 mmol/L Chloride Level 118 mmol/L Carbon Dioxide Level 16 mmol/L Anion Gap 8.0 mmol/L Blood Urea Nitrogen 11 mg/dl Creatinine 0.86 mg/dl Est Creatinine Clear Calc Drug Dose 48.9 ml/min Estimated GFR () 85.7 Estimated GFR (Non- 73.9 BUN/Creatinine Ratio 12.5 Random Glucose 91 mg/dl Calcium Level 7.4 mg/dl Magnesium Level 2.3 mg/dl Bedside Glucose 107 mg/dl Assessment and Plan This is a 61 year old female with a PMH of pancreatic head adenocarcinoma s/p Whipple's with ongoing chemotherapy, insulin dependent DM2, HTN, depression/ anxiety, hypothyroidism, hx. of C. diff colitis in August/September of 2016 presents with diarrhea/weakness Diarrhea, nonspecific colitis patient presents with diarrhea, >20 episodes daily since December 19 multiple causes possible: chemotherapy, colitis, C. diff check C. diff, pending check stool studies which have been sent off check TSH Abdominal CT - no acute process noted; possible obstructive process noted continue IVFs, clears Bentyl, Lomotil for now Cipro + Flagyl empirically - improving WBC count consult GI Electrolyte Abnormalities Low K and Mg replaced and now wnl, recheck in AM Insulin Dependent DM2 insulin sliding scale Depression/Anxiety continue home medications HTN continue ELIEL-I Hypothyroidism check TSH continue Synthroid DVT ppx subq heparin FULL CODE
--- NOTE | 2016-12-25 09:23 | DIAGNOSTIC IMAGING REPORT ---
KUB HISTORY: colon and small bowel obstruction. Ileus COMPARISON: Abdomen and pelvis CT 12/24/2016. FINDINGS: Multiple distended gas-filled loops of large and small bowel are seen throughout the abdomen. The mid small bowel measures up to 4.8 cm in diameter. This is similar to the prior abdomen and pelvis CT. No renal calculi. No ureteral calculi. Calcifications in the deep pelvis likely represent phleboliths. Pancreatic duct stent is again noted. Surgical clips within the right upper quadrant consistent with prior Whipple procedure. No pneumoperitoneum or pneumatosis. IMPRESSION: No change in the multiple distended gas-filled loops of large and small bowel within the abdomen. This favors an ileus. However, a partial bowel obstruction could also have a similar appearance. Electronically signed by: Js Astorga M.D. 12/25/2016 9:21 AM Dictated Date/Time: 12/25/2016 9:18 AM
[2016-12-25] MEDS: ACETAMINOPHEN 325 MG TAB PO PRN ×2 (12:12→22:07)
--- NOTE | 2016-12-25 13:11 | Gastrointestinal Consultation ---
Gastrointestinal Consultation Date of Consultation: Dec 25, 2016 Attending Physician: Dr. Lees Consulting Physician: Dr. Rachna Rodriguez Reason for Consultation: Diarrhea, abnormal CT History of Present Illness Patient is a 61 year old female with hx of pancreatic cancer s/p Whipple 07/2016 , hx of c. diff infection 08/2016 treated with vanco per pt, currently ongoing chemo for pancreatic ca who is admitted with worsening diarrhea, unable to keep oral intake without nausea or dry heaves, fever (Tmax 101.4 by report) and weight loss. Describes diarrhea over 20 times per day, was trying to use Lomotil and bentyl for symptomatic relief. Denies any new antibiotic use, states last c diff test was negative last week. Last colonoscopy with Dr. Live 02/03/15 done for diarrhea and weight loss was normal, biopsies showed no evidence of colitis at that time. ED work up shows elevated WBC count (pt denies receiving Neulasta/Neupogen or prednisone as part of her chemo), hbg 8.2, hypokalemia and hypomagnesemia, CT showed evidence of pancreatic stent and small and large bowel distention concerning for ileus vs obstructive process. KUB this morning still shows dilated bowel loops - ileus vs pSBO C diff, stool and blood cultures pending receiving cipro and flagyl currently denies significant narcotic use prior to admission Past Medical/Surgical History Medical Problems: (1) Diarrhea Status: Acute (2) Pancreatic cancer Status: Chronic (3) Sepsis Status: Acute Past Medical History: pancreatic cancer ongoing chemo GERD HTN chronic diarrhea hypothyroidism IDDM restless leg syndrome Past Surgical History: whipple procedure D&C exploratory lap hysterectomy tonsillectomy Family History Diabetes mellitus FH: heart disease Hypertension Social History Smoking Status: Former Smoker Drug Use: none Marital Status: Housing Status: lives with significant other Occupation Status: retired Allergies Coded Allergies: Penicillins (Verified Allergy, Severe, ANAPHYLAXIS, 12/24/16) Sulfa Antibiotics (Verified Allergy, Severe, ANAPHYLAXIS, 12/24/16) Moxifloxacin (Verified Allergy, Intermediate, ITCHINESS/SKIN IRRITATION, ) Nickel (Unverified Allergy, Unknown, LOCAL SKIN IRRIRATION, 12/24/16) Current Medications Home Meds and Scripts Medications Dose Route/Sig Max Daily Dose Days Date Category Dose Instructions Topamax (Topiramate) 50 Mg Tab 50 Mg PO HS 12/24/16 Reported Zofran (Ondansetron HCl) 4 Mg Tab 4 Mg PO Q8 PRN 12/24/16 Reported Symbicort 160/4.5 Inhaler (Budesonide/Formoterol Fumarate) Aero 2 Puffs INH BID 12/24/16 Reported Proventil Hfa (Albuterol Sulfate) 108 Mcg/Act Aer 2 Puffs INH Q4 PRN 12/24/16 Reported Duoneb (Ipratropium-Albuterol) 3 Ml Nebu 1 Treatment INH Q4H PRN 12/24/16 Reported Lomotil (Diphenoxylate HCl/Atropine) Tab 1 Tab PO QID PRN 12/24/16 Reported Dicyclomine Hcl 10 Mg Cap 10 Mg PO Q8 PRN 30 12/24/16 Reported Sucralfate 1 Gm Tab 1 Gm PO BID 12/24/16 Reported Prinivil (Lisinopril) 10 Mg Tab 10 Mg PO DAILY 12/24/16 Reported Ativan (Lorazepam) 0.5 Mg Tab 0.5 Mg PO Q12 PRN 12/24/16 Reported Roxicodone Ir (Oxycodone HCl) 5 Mg Tab 5-10 Mg PO Q4 PRN 12/24/16 Reported Advil (Ibuprofen) 200 Mg Tab 200 Mg PO Q4 PRN 12/24/16 Reported Maxalt (Rizatriptan Benzoate) 5 Mg Tab 5 Mg PO UD PRN 12/24/16 Reported Compazine (Prochlorperazine Maleate) 10 Mg Tab 10 Mg PO Q6H PRN 12/24/16 Reported Xeloda (Capecitabine) 500 Mg Tab 500 Mg PO UD 12/24/16 Reported 3 tablets by mouth twice a day for 2 weeks followed by 1 week off. Ultram (Tramadol Hcl) 50 Mg Tab 50 Mg PO Q4H PRN 10/05/13 Reported PRN PAIN Cymbalta (Duloxetine Hcl) 60 Mg Cap 60 Mg PO DAILY 10/05/13 Reported Synthroid (Levothyroxine Sodium) 100 Mcg Tab 100 Mcg PO DAILY 10/05/13 Reported Review of Systems Constitutional: + see HPI, + fever, + weight loss, + weakness, + fatigue Eyes: No problem reported ENT: No problem reported Respiratory: No cough, No shortness of breath Cardiac: No chest pain, No edema Abdomen: + see HPI Musculoskeletal: No problem reported Female : No dysuria Neuro: + weakness, No memory loss Psych: No problem reported Heme: No abnormal bleeding/bruising Endo: No problem reported Skin: No rash Physical Exam Date Time Temp Pulse Resp B/P (MAP) Pulse Ox O2 Delivery O2 Flow Rate FiO2 12/25/16 12:00 Room Air 12/25/16 11:52 36.8 80 125/62 (83) 95 12/25/16 08:18 36.8 90 16 126/73 (90) 100 Room Air 12/25/16 08:00 Room Air 12/25/16 04:18 36.4 88 18 113/74 (87) 100 Room Air 12/25/16 04:00 Room Air 12/24/16 23:59 Room Air 12/24/16 23:09 36.6 98 16 101/65 (77) 99 Room Air 12/24/16 19:30 36.5 88 18 161/82 (108) 100 Room Air 12/24/16 19:14 91 14 131/87 100 12/24/16 18:02 97 Room Air 12/24/16 17:35 105 12 142/94 97 Room Air 12/24/16 15:30 85 15 127/68 100 Room Air 12/24/16 13:43 36.4 110 20 115/76 98 Room Air General Appearance: + cachetic (thin 61yo female looking ill in NAD) Eyes: PERRL ENT: hearing grossly normal Neck: supple Respiratory/Chest: normal breath sounds, no respiratory distress, no accessory muscle use Cardiovascular: regular rate, rhythm Abdomen: normal bowel sounds, non tender, soft Extremities: no pedal edema Neurologic/Psych: alert, normal mood/affect, oriented x 3 Skin: normal color Laboratory Results Last 24 Hours Test 12/24/16 15:00 12/24/16 15:32 12/24/16 16:29 12/24/16 20:10 White Blood Count K/uL 20.20 K/uL Red Blood Count M/uL 2.81 M/uL Hemoglobin g/dL 8.2 g/dL Hematocrit % 23.7 % Mean Corpuscular Volume fL 84.3 fL Mean Corpuscular Hemoglobin pg 29.2 pg Mean Corpuscular Hemoglobin Concent g/dl 34.6 g/dl Platelet Count K/uL 703 K/uL Mean Platelet Volume fL 9.2 fL RDW Standard Deviation fL 55.0 fL RDW Coefficient of Variation % 19.1 % Nucleated RBC Absolute Count (auto) 0.03 K/uL Nucleated Red Blood Cells % 0.3 % Bedside Lactic Acid Venous 1.01 mmol/L Neutrophils % (Manual) 74.1 % Lymphocytes % (Manual) 11.6 % Monocytes % (Manual) 11.6 % Eosinophils % (Manual) 0.9 % Metamyelocytes % 1.8 % Neutrophils # (Manual) 14.97 K/uL Total Absolute Neutrophils 14.97 K/uL Lymphocytes # (Manual) 2.34 K/uL Total Absolute Lymphocytes 2.34 K/uL Monocytes # (Manual) 2.34 K/uL Eosinophils # (Manual) 0.18 K/uL Metamyelocytes # 0.36 K/uL Dohle Bodies 1+ Anisocytosis PRESENT Ovalocytes 1+ Prothrombin Time 12.0 SECONDS Prothromb Time International Ratio 1.1 Urine Color YELLOW Urine Appearance CLEAR Urine pH 6.0 Urine Specific [place] 1.015 Urine Protein TRACE Urine Glucose (UA) NEG Urine Ketones NEG Urine Occult Blood NEG Urine Nitrite NEG Urine Bilirubin NEG Urine Urobilinogen NEG Urine Leukocyte Esterase NEG Urine WBC (Auto) 10-30 /hpf Urine RBC (Auto) 0-4 /hpf Urine Hyaline Casts (Auto) 1-5 /lpf Urine Epithelial Cells (Auto) 10-20 /lpf Urine Bacteria (Auto) NEG Sodium Level 141 mmol/L Potassium Level 2.6 mmol/L Chloride Level 114 mmol/L Carbon Dioxide Level 16 mmol/L Anion Gap 11.0 mmol/L Blood Urea Nitrogen 13 mg/dl Creatinine 0.97 mg/dl Est Creatinine Clear Calc Drug Dose 43.4 ml/min Estimated GFR () 74.1 Estimated GFR (Non- 63.9 BUN/Creatinine Ratio 13.3 Random Glucose 140 mg/dl Calcium Level 7.8 mg/dl Magnesium Level 1.6 mg/dl Total Bilirubin 0.2 mg/dl Direct Bilirubin < 0.1 mg/dl Aspartate Amino Transf (AST/SGOT) 10 U/L Alanine Aminotransferase (ALT/SGPT) 11 U/L Alkaline Phosphatase 86 U/L Troponin I < 0.015 ng/ml Total Protein 4.0 gm/dl Albumin 1.4 gm/dl Lipase 185 U/L Hepatitis C Antibody Screen NEG Bedside Glucose 121 mg/dl Test 12/25/16 04:17 12/25/16 06:39 12/25/16 11:34 White Blood Count 17.57 K/uL Red Blood Count 2.60 M/uL Hemoglobin 7.5 g/dL Hematocrit 22.0 % Mean Corpuscular Volume 84.6 fL Mean Corpuscular Hemoglobin 28.8 pg Mean Corpuscular Hemoglobin Concent 34.1 g/dl Platelet Count 710 K/uL Mean Platelet Volume 9.1 fL RDW Standard Deviation 57.4 fL RDW Coefficient of Variation 19.4 % Nucleated RBC Absolute Count (auto) 0.03 K/uL Neutrophils % (Manual) 51.3 % Lymphocytes % (Manual) 33.9 % Monocytes % (Manual) 8.7 % Eosinophils % (Manual) 3.5 % Metamyelocytes % 2.6 % Nucleated Red Blood Cells % 0.2 % Neutrophils # (Manual) 9.01 K/uL Total Absolute Neutrophils 9.01 K/uL Lymphocytes # (Manual) 5.96 K/uL Total Absolute Lymphocytes 5.96 K/uL Monocytes # (Manual) 1.53 K/uL Eosinophils # (Manual) 0.61 K/uL Metamyelocytes # 0.46 K/uL Dohle Bodies 1+ Echinocytes 1+ Schistocytes 1+ Sodium Level 142 mmol/L Potassium Level 4.2 mmol/L Chloride Level 118 mmol/L Carbon Dioxide Level 16 mmol/L Anion Gap 8.0 mmol/L Blood Urea Nitrogen 11 mg/dl Creatinine 0.86 mg/dl Est Creatinine Clear Calc Drug Dose 48.9 ml/min Estimated GFR () 85.7 Estimated GFR (Non- 73.9 BUN/Creatinine Ratio 12.5 Random Glucose 91 mg/dl Calcium Level 7.4 mg/dl Magnesium Level 2.3 mg/dl Thyroid Stimulating Hormone (TSH) 6.300 uIu/ml Bedside Glucose 107 mg/dl 172 mg/dl Impression Patient is a 61 year old female ongoing chemo for pancreatic ca, hx of c diff infection 08/2016 admitted with leukocytosis, worsening diarrhea, electrolyte abnormalities, weight loss, inability to take PO, CT concerning for ileus vs pSBO Plan etiology of Diarrhea unclear at this time, multiple risk factors including chemo , hx of c diff, and hx of chronic diarrhea colonoscopy with biopsies in 2014 was negative (CALLUM Dozier) await stool cultures and c diff if cultures negative, suggest checking stool for fecal fat and giardia replace electrolytes follow daily abdominal film, concerning for toxic megacolon avoid antidiarrheal agents such as lomotil at this time will continue to follow I saw and evaluated the patient. She had a Whipple procedure about 4 months ago for complications of pancreatic cancer. She presents with worsening diarrhea and weakness. She describes having 20 bowel movements per day associated with urgency and discomfort. Of note she did have a prior colonoscopy about 1.5 years ago and has had a recent course of therapy for C. difficile infection Physical examination Patient is somewhat ill-appearing No abdominal tenderness Impression: Patient presents with diarrhea and leukocytosis. I would suggest evaluation for evidence of C. difficile infection. If found to be positive we should treat her with vancomycin 250 in addition to metronidazole. If C. difficile serologies are negative I would suggest further evaluation for infectious etiologies with a stool culture, Giardia and CMV
[2016-12-25 17:38] LABS: HEMATOCRIT 21.9 % (37-47)
--- NOTE | 2016-12-25 17:48 | Progress Note ---
Progress Note Date of Service Dec 25, 2016. Progress Note Labwork obtained later in the afternoon on 12/25; Hgb of 6.9 - patient feels weak and HRs elevated in the 100s throughout the day. 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 Agreeable for one unit of PRBCs. Due to pancreatic CA and ongoing chemo, will obtain type and cross for irradiated RBCs. Transfuse one unit and recheck H/H four hours post transfusion. Anemia, likely of chronic disease/cancer and secondary to ongoing chemo H/H drop to < 7 with weakness and tachycardia type and cross 2 units; will transfuse one unit PRBC recheck H/H four hours post-transfusion pt. has never had a transfusion in the past - monitor for any adverse reactions Hypothyroidism TSH elevated will increase Synthroid to 125mcg recheck TSH as outpatient in 6 weeks
[2016-12-25] MEDS: PANCREAZE (LIPASE 10,500U) CAP PO SCH (17:49)
[2016-12-25] MEDS: TOPIRAMATE 25 MG TAB PO SCH (20:26)
[2016-12-25] MEDS: LORAZEPAM 0.5 MG TAB PO PRN (22:07)
[2016-12-25] MEDS: TRAMADOL HCL 50 MG TAB PO PRN (22:07)
[2016-12-26] MEDS: NSS + 20MEQ KCL 1000ML 1,000 ML IV SCH ×6 (01:11→22:05)
[2016-12-26 03:19] VITALS: BP 117/76; PULSE 82; TEMP 36.6; O2SAT 99
--- NOTE | 2016-12-26 04:52 | Progress Note ---
Internal Med Progress Note Date of Service: Dec 26, 2016. Provider Documentation: Made aware by RN of patient complaint of blood-streaked stools. No unusual abdominal pain. AP Follow H&H Stool Hemoccult Hold heparin subcutaneous for now. SCDs interim for DVT prophylaxis. Will relay to AM provider. Vital Signs: Date Time Temp Pulse Resp B/P (MAP) Pulse Ox O2 Delivery O2 Flow Rate FiO2 12/26/16 12:14 36.7 74 18 128/81 (97) 96 12/26/16 08:03 36.8 90 18 129/68 (88) 96 12/26/16 08:00 Room Air 12/26/16 04:00 Room Air 12/26/16 03:19 36.6 82 20 117/76 (90) 99 Room Air 12/25/16 23:59 Room Air 12/25/16 23:07 36.8 88 18 120/71 (87) 98 Room Air 12/25/16 22:10 36.7 87 18 122/83 99 12/25/16 21:10 36.6 84 18 129/80 99 12/25/16 20:40 36.4 80 18 120/77 100 12/25/16 20:15 36.4 90 18 119/69 (86) 100 Room Air 12/25/16 20:00 Room Air 12/25/16 19:17 36.2 79 18 119/67 (84) 100 Room Air 12/25/16 16:00 Room Air 12/25/16 15:00 36.3 91 18 111/68 (82) 100 Room Air Lab Results: Results Past 24 Hours Test 12/25/16 15:42 12/25/16 16:06 12/25/16 17:29 12/25/16 20:03 Range/Units Hemoglobin 6.9 7.4 12.0-16.0 g/dL Hematocrit 21.0 21.9 37-47 % Bedside Glucose 110 117 70-90 mg/dl Test 12/25/16 20:30 12/26/16 04:46 12/26/16 06:00 12/26/16 06:38 Range/Units White Blood Count 19.24 4.8-10.8 K/uL Red Blood Count 2.75 4.2-5.4 M/uL Hemoglobin 8.3 12.0-16.0 g/dL Hematocrit 23.7 37-47 % Mean Corpuscular Volume 86.2 80-100 fL Mean Corpuscular Hemoglobin 30.2 25-34 pg Mean Corpuscular Hemoglobin Concent 35.0 32-36 g/dl RDW Standard Deviation 54.3 36.4-46.3 fL RDW Coefficient of Variation 18.7 11.5-14.5 % Platelet Count 628 130-400 K/uL Mean Platelet Volume 9.8 7.4-10.4 fL Sodium Level 143 136-145 mmol/L Potassium Level 3.3 3.5-5.1 mmol/L Chloride Level 120 98-107 mmol/L Carbon Dioxide Level 14 21-32 mmol/L Anion Gap 9.0 3-11 mmol/L Blood Urea Nitrogen 6 7-18 mg/dl Creatinine 0.89 0.60-1.20 mg/dl Est Creatinine Clear Calc Drug Dose 49.5 ml/min Estimated GFR () 82.2 Estimated GFR (Non- 70.9 BUN/Creatinine Ratio 6.4 10-20 Random Glucose 90 70-99 mg/dl Calcium Level 7.1 8.5-10.1 mg/dl Magnesium Level 1.6 1.8-2.4 mg/dl Stool Occult Blood POSITIVE NEGATIVE Bedside Glucose 91 70-90 mg/dl
[2016-12-26] MEDS: METRONIDAZOLE / NSS 500 MG in PREMIXED NSS 100 ML IV SCH ×3 (05:25→22:05)
[2016-12-26] MEDS: LEVOTHYROXINE 125 MCG TAB PO SCH (05:26)
[2016-12-26 06:01] LABS: HEMATOCRIT 23.7 % (37-47); MEAN CELL VOLUME 86.2 fL (80-100); MEAN CORPUSCULAR HEMOGLOBIN 30.2 pg (25-34); MEAN PLATELET VOLUME 9.8 fL (7.4-10.4); PLATELET COUNT 628 K/uL (130-400); RED BLOOD COUNT 2.75 M/uL (4.2-5.4); WHITE BLOOD COUNT 19.24 K/uL (4.8-10.8)
[2016-12-26 06:26] LABS: BUN/CREATININE RATIO 6.4 (10-20); CALCIUM 7.1 mg/dl (8.5-10.1); CREATININE 0.89 mg/dl (0.60-1.20); MAGNESIUM 1.6 mg/dl (1.8-2.4); POTASSIUM 3.3 mmol/L (3.5-5.1)
[2016-12-26] MEDS: INSULIN ASPART 100 UNITS/ML 3 ML PEN SC SCH ×4 (07:00→20:38)
[2016-12-26] MEDS: PANCREAZE (LIPASE 10,500U) CAP PO SCH ×3 (07:39→16:56)
[2016-12-26] MEDS: POTASSIUM CHLR 20 MEQ / WTR 20 MEQ in PREMIXED WATER 100 ML IV SCH ×2 (07:55→10:18)
[2016-12-26] MEDS: MAGNESIUM SULFATE 1GM / D5W 1 GM in PREMIXED IN D5W 100 ML IV SCH ×2 (07:56→09:20)
[2016-12-26 08:03] VITALS: BP 129/68; PULSE 90; TEMP 36.8; O2SAT 96
[2016-12-26] MEDS: LISINOPRIL 10 MG TAB PO SCH (09:19)
[2016-12-26] MEDS: PROCHLORPERAZINE MALEATE 10 MG TAB PO PRN (09:19)
[2016-12-26] MEDS: BOOST BREEZE NUTRITION DRINK 1 BOX PO SCH (09:19)
[2016-12-26] MEDS: DULOXETINE HCL 60 MG CAP PO SCH (09:19)
[2016-12-26] MEDS: SUCRALFATE 1 GM TAB PO SCH ×2 (09:20→20:36)
[2016-12-26] MEDS: BUDESONIDE/FORMOTEROL FUMARATE 160/4.5 60 PUFFS/INHALER INH SCH ×2 (09:20→20:34)
[2016-12-26] MEDS: CIPROFLOXACIN / D5W 400 MG in PREMIXED IN D5W 200 ML IV SCH ×2 (10:15→20:34)
--- NOTE | 2016-12-26 10:22 | Gastroenterology Progress Note ---
Progress Note Date of Service: Dec 26, 2016 Subjective Pt evaluation today including: conversation w/ patient, physical exam Pt was seen and evaluated this AM. No acute changes overnight. Continues with intermittent abdominal pain and diarrhea. Diarrhea is triggereed by any PO intake, including H2O. She has not seen any black stools but thinks one of her stools could have been red. No fever, chills, chest pain, SOB. Has not had her KUB today. C.diff negative. Heme + stool. Stool culture pending. Stool CMV pending. Stool Giardia pending. Stool O&P pending. Fecal fat pending. KUB 12/25/16: No change in the multiple distended gas-filled loops of large and small bowel within the abdomen. This favors an ileus. However, a partial bowel obstruction could also have a similar appearance. Review of Systems Constitutional: No fever, No chills Respiratory: No cough Abdomen: + pain, + diarrhea, No nausea, No vomiting, No constipation Medications Current Inpatient Medications Medications (Trade) Dose Ordered Sig/Jesse Route Start Time Stop Time Status Last Admin Dose Admin Potassium Chloride/Sodium Chloride 1,000 ml @ 200 mls/hr Q5H IV 12/24/16 20:00 01/23/17 19:59 12/26/16 05:26 200 MLS/HR Ciprofloxacin/ Dextrose 400 mg/ Prmx 200 ml @ 100 mls/hr Q12 IV 12/25/16 09:00 01/04/17 08:59 12/25/16 22:47 100 MLS/HR Metronidazole 500 mg/Prmx 100 ml @ 100 mls/hr Q8 IV 12/24/16 20:00 01/03/17 19:59 12/26/16 05:25 100 MLS/HR Acetaminophen (Tylenol Tab) 650 mg Q4H PRN PO 12/24/16 18:15 01/23/17 18:14 12/25/16 22:07 650 MG Ondansetron HCl (Zofran Inj) 4 mg Q6H PRN IV 12/24/16 18:15 01/23/17 18:14 12/24/16 22:08 4 MG Albuterol (Ventolin Hfa Inhaler) 2 puffs Q4 PRN INH 12/24/16 18:30 01/23/17 18:29 Budesonide/ Formoterol Fumarate (Symbicort 160/ 4.5 Inh) 2 puffs BID INH 12/24/16 21:00 01/23/17 20:59 12/26/16 09:20 2 PUFFS Duloxetine HCl (Cymbalta Cap) 60 mg DAILY PO 12/25/16 09:00 01/24/17 08:59 12/26/16 09:19 60 MG Albuterol/ Ipratropium (Duoneb) 3 ml Q4H PRN INH 12/24/16 18:30 01/23/17 18:29 Lisinopril (Zestril Tab) 10 mg DAILY PO 12/25/16 09:00 01/24/17 08:59 12/26/16 09:19 10 MG Lorazepam (Ativan Tab) 0.5 mg Q12 PRN PO 12/24/16 18:30 01/23/17 18:29 12/25/16 22:07 0.5 MG Oxycodone HCl (Roxicodone Immediate Rel Tab) 5 mg Q4 PRN PO 12/24/16 18:30 01/07/17 18:29 Prochlorperazine Maleate (Compazine Tab) 10 mg Q6H PRN PO 12/24/16 18:30 01/23/17 18:29 12/26/16 09:19 10 MG Sucralfate (Carafate Tab) 1 gm BID PO 12/24/16 21:00 01/23/17 20:59 12/26/16 09:20 1 GM Topiramate (Topamax Tab) 50 mg HS PO 12/24/16 21:00 01/23/17 20:59 12/25/16 20:26 50 MG Tramadol HCl (Ultram Tab) 50 mg Q4H PRN PO 12/24/16 18:30 01/23/17 18:29 12/25/16 22:07 50 MG Insulin Aspart (novoLOG ASPART) SLIDING SCALE If C... ACHS SC 12/24/16 21:00 01/23/17 20:59 12/25/16 17:15 2 UNITS Glucose (Glucose 40% Gel) 15-30 GRAMS 15 GRAMS... UD PRN PO 12/24/16 18:30 01/23/17 18:29 Glucose (Glucose Chew Tab) 4-8 Tablets 4 Tabl... UD PRN PO 12/24/16 18:30 01/23/17 18:29 Dextrose (Dextrose 50% 50ML Syringe) 25-50ML OF 50% DW IV FOR... UD PRN IV 12/24/16 18:30 01/23/17 18:29 Glucagon (Glucagon Inj) 1 mg UD PRN SQ 12/24/16 18:30 01/23/17 18:29 Enteral Nutritional Formula (Boost Breeze Nutritional Drink) 1 box DAILY PO 12/26/16 09:00 01/25/17 08:59 12/26/16 09:19 1 BOX Amylase/Lipase/ Protease (Pancreaze (Lipase 10,500U) Cap) 1 cap TIDM PO 12/25/16 16:45 01/24/17 16:44 12/26/16 07:39 1 CAP Levothyroxine Sodium (Synthroid Tab) 125 mcg DAILYBB PO 12/26/16 06:00 01/24/17 05:59 12/26/16 05:26 125 MCG Potassium Chloride 20 meq/ Prmx 100 ml @ 50 mls/hr Q2H IV 12/26/16 08:00 12/26/16 11:59 12/26/16 07:55 50 MLS/HR Objective Vital Signs Date Time Temp Pulse Resp B/P (MAP) Pulse Ox O2 Delivery O2 Flow Rate FiO2 12/26/16 08:03 36.8 90 18 129/68 (88) 96 12/26/16 08:00 Room Air 12/26/16 04:00 Room Air 12/26/16 03:19 36.6 82 20 117/76 (90) 99 Room Air 12/25/16 23:59 Room Air 12/25/16 23:07 36.8 88 18 120/71 (87) 98 Room Air 12/25/16 22:10 36.7 87 18 122/83 99 12/25/16 21:10 36.6 84 18 129/80 99 12/25/16 20:40 36.4 80 18 120/77 100 12/25/16 20:15 36.4 90 18 119/69 (86) 100 Room Air 12/25/16 20:00 Room Air 12/25/16 19:17 36.2 79 18 119/67 (84) 100 Room Air 12/25/16 16:00 Room Air 12/25/16 15:00 36.3 91 18 111/68 (82) 100 Room Air 12/25/16 12:00 Room Air 12/25/16 11:52 36.8 80 125/62 (83) 95 Physical Exam General Appearance: no apparent distress Eyes: PERRL ENT: hearing grossly normal Neck: supple Respiratory/Chest: lungs clear Cardiovascular: regular rate, rhythm Abdomen: normal bowel sounds, non tender, soft, no organomegaly Neurologic/Psych: alert, normal mood/affect, oriented x 3 Skin: normal color Laboratory Results Last 24 Hours Test 12/25/16 11:34 12/25/16 15:42 12/25/16 16:06 12/25/16 17:29 Bedside Glucose 172 mg/dl 110 mg/dl Hemoglobin 6.9 g/dL 7.4 g/dL Hematocrit 21.0 % 21.9 % Test 12/25/16 20:03 12/25/16 20:30 12/26/16 04:46 12/26/16 06:00 Bedside Glucose 117 mg/dl White Blood Count 19.24 K/uL Red Blood Count 2.75 M/uL Hemoglobin 8.3 g/dL Hematocrit 23.7 % Mean Corpuscular Volume 86.2 fL Mean Corpuscular Hemoglobin 30.2 pg Mean Corpuscular Hemoglobin Concent 35.0 g/dl RDW Standard Deviation 54.3 fL RDW Coefficient of Variation 18.7 % Platelet Count 628 K/uL Mean Platelet Volume 9.8 fL Sodium Level 143 mmol/L Potassium Level 3.3 mmol/L Chloride Level 120 mmol/L Carbon Dioxide Level 14 mmol/L Anion Gap 9.0 mmol/L Blood Urea Nitrogen 6 mg/dl Creatinine 0.89 mg/dl Est Creatinine Clear Calc Drug Dose 49.5 ml/min Estimated GFR () 82.2 Estimated GFR (Non- 70.9 BUN/Creatinine Ratio 6.4 Random Glucose 90 mg/dl Calcium Level 7.1 mg/dl Magnesium Level 1.6 mg/dl Stool Occult Blood POSITIVE Test 12/26/16 06:38 Bedside Glucose 91 mg/dl Assessment and Plan Patient is a 61 year old female ongoing chemo for pancreatic ca, hx of c diff infection 08/2016 admitted with leukocytosis, worsening diarrhea, electrolyte abnormalities, weight loss, inability to take PO, CT concerning for ileus vs pSBO. Stools unremarkable to date - she is to get KUB today. Blood culture without any growth to date. - Etiology of diarrhea unclear - chemo induced, infectious, chronic - colonoscopy with biopsies in 2014 was negative (CALLUM Dozier) - Daily KUBs - will need to review KUB from 12/26/16 - Avoid antidiarrheal agents - Follow up blood culture GI to follow. Call with questions or concerns. I saw and evaluated the patient. She continues to have diarrhea multiple times per day but also has persistent evidence of a small bowel obstruction on imaging studies. Given this I would suggest consideration of a surgical consultation.
--- NOTE | 2016-12-26 11:10 | Progress Note ---
Subjective Date of Service: Dec 26, 2016. Subjective Pt evaluation today including: conversation w/ patient, physical exam, lab review, review of studies, review of inpatient medication list Saw/examined the patient in room 215 continues to have diarrhea, decreased PO intake due to diarrhea no abdominal pain; no fevers/chills Problem List Medical Problems: (1) Diarrhea Status: Acute (2) Pancreatic cancer Status: Chronic (3) Sepsis Status: Acute Review of Systems Constitutional: + weakness, No fever, No chills Respiratory: No cough, No sputum, No shortness of breath Cardiac: No chest pain Abdomen: + diarrhea, No pain, No nausea, No vomiting, No constipation, No GI bleeding Heme: No abnormal bleeding/bruising Medications Current Inpatient Medications Medications (Trade) Dose Ordered Sig/Jesse Route Start Time Stop Time Status Last Admin Dose Admin Potassium Chloride/Sodium Chloride 1,000 ml @ 200 mls/hr Q5H IV 12/24/16 20:00 01/23/17 19:59 12/26/16 05:26 200 MLS/HR Ciprofloxacin/ Dextrose 400 mg/ Prmx 200 ml @ 100 mls/hr Q12 IV 12/25/16 09:00 01/04/17 08:59 12/26/16 10:15 100 MLS/HR Metronidazole 500 mg/Prmx 100 ml @ 100 mls/hr Q8 IV 12/24/16 20:00 01/03/17 19:59 12/26/16 05:25 100 MLS/HR Acetaminophen (Tylenol Tab) 650 mg Q4H PRN PO 12/24/16 18:15 01/23/17 18:14 12/25/16 22:07 650 MG Ondansetron HCl (Zofran Inj) 4 mg Q6H PRN IV 12/24/16 18:15 01/23/17 18:14 12/24/16 22:08 4 MG Albuterol (Ventolin Hfa Inhaler) 2 puffs Q4 PRN INH 12/24/16 18:30 01/23/17 18:29 Budesonide/ Formoterol Fumarate (Symbicort 160/ 4.5 Inh) 2 puffs BID INH 12/24/16 21:00 01/23/17 20:59 12/26/16 09:20 2 PUFFS Duloxetine HCl (Cymbalta Cap) 60 mg DAILY PO 12/25/16 09:00 01/24/17 08:59 12/26/16 09:19 60 MG Albuterol/ Ipratropium (Duoneb) 3 ml Q4H PRN INH 12/24/16 18:30 01/23/17 18:29 Lisinopril (Zestril Tab) 10 mg DAILY PO 12/25/16 09:00 01/24/17 08:59 12/26/16 09:19 10 MG Lorazepam (Ativan Tab) 0.5 mg Q12 PRN PO 12/24/16 18:30 01/23/17 18:29 12/25/16 22:07 0.5 MG Oxycodone HCl (Roxicodone Immediate Rel Tab) 5 mg Q4 PRN PO 12/24/16 18:30 01/07/17 18:29 Prochlorperazine Maleate (Compazine Tab) 10 mg Q6H PRN PO 12/24/16 18:30 01/23/17 18:29 12/26/16 09:19 10 MG Sucralfate (Carafate Tab) 1 gm BID PO 12/24/16 21:00 01/23/17 20:59 12/26/16 09:20 1 GM Topiramate (Topamax Tab) 50 mg HS PO 12/24/16 21:00 01/23/17 20:59 12/25/16 20:26 50 MG Tramadol HCl (Ultram Tab) 50 mg Q4H PRN PO 12/24/16 18:30 01/23/17 18:29 12/25/16 22:07 50 MG Insulin Aspart (novoLOG ASPART) SLIDING SCALE If C... ACHS SC 12/24/16 21:00 01/23/17 20:59 12/25/16 17:15 2 UNITS Glucose (Glucose 40% Gel) 15-30 GRAMS 15 GRAMS... UD PRN PO 12/24/16 18:30 01/23/17 18:29 Glucose (Glucose Chew Tab) 4-8 Tablets 4 Tabl... UD PRN PO 12/24/16 18:30 01/23/17 18:29 Dextrose (Dextrose 50% 50ML Syringe) 25-50ML OF 50% DW IV FOR... UD PRN IV 12/24/16 18:30 01/23/17 18:29 Glucagon (Glucagon Inj) 1 mg UD PRN SQ 12/24/16 18:30 01/23/17 18:29 Enteral Nutritional Formula (Boost Breeze Nutritional Drink) 1 box DAILY PO 12/26/16 09:00 01/25/17 08:59 12/26/16 09:19 1 BOX Amylase/Lipase/ Protease (Pancreaze (Lipase 10,500U) Cap) 1 cap TIDM PO 12/25/16 16:45 01/24/17 16:44 12/26/16 07:39 1 CAP Levothyroxine Sodium (Synthroid Tab) 125 mcg DAILYBB PO 12/26/16 06:00 01/24/17 05:59 12/26/16 05:26 125 MCG Potassium Chloride 20 meq/ Prmx 100 ml @ 50 mls/hr Q2H IV 12/26/16 08:00 12/26/16 11:59 12/26/16 10:18 50 MLS/HR Objective Vital Signs Date Time Temp Pulse Resp B/P (MAP) Pulse Ox O2 Delivery O2 Flow Rate FiO2 12/26/16 08:03 36.8 90 18 129/68 (88) 96 12/26/16 08:00 Room Air 12/26/16 04:00 Room Air 12/26/16 03:19 36.6 82 20 117/76 (90) 99 Room Air 12/25/16 23:59 Room Air 12/25/16 23:07 36.8 88 18 120/71 (87) 98 Room Air 12/25/16 22:10 36.7 87 18 122/83 99 12/25/16 21:10 36.6 84 18 129/80 99 12/25/16 20:40 36.4 80 18 120/77 100 12/25/16 20:15 36.4 90 18 119/69 (86) 100 Room Air 12/25/16 20:00 Room Air 12/25/16 19:17 36.2 79 18 119/67 (84) 100 Room Air 12/25/16 16:00 Room Air 12/25/16 15:00 36.3 91 18 111/68 (82) 100 Room Air 12/25/16 12:00 Room Air 12/25/16 11:52 36.8 80 125/62 (83) 95 Physical Exam General Appearance: + mild distress, + cachetic, + thin ENT: hearing grossly normal Respiratory/Chest: chest non-tender, lungs clear, normal breath sounds, no respiratory distress, no accessory muscle use Cardiovascular: regular rate, rhythm, no edema, no murmur Abdomen: non tender, soft, + abnormal bowel sounds (hyperactive bowel sounds) Extremities: normal inspection, no pedal edema Neurologic/Psychiatric: no motor/sensory deficits, alert, normal mood/affect Laboratory Results Last 24 Hours Test 12/25/16 11:34 12/25/16 15:42 12/25/16 16:06 12/25/16 17:29 Bedside Glucose 172 mg/dl 110 mg/dl Hemoglobin 6.9 g/dL 7.4 g/dL Hematocrit 21.0 % 21.9 % Test 12/25/16 20:03 12/25/16 20:30 12/26/16 04:46 12/26/16 06:00 Bedside Glucose 117 mg/dl White Blood Count 19.24 K/uL Red Blood Count 2.75 M/uL Hemoglobin 8.3 g/dL Hematocrit 23.7 % Mean Corpuscular Volume 86.2 fL Mean Corpuscular Hemoglobin 30.2 pg Mean Corpuscular Hemoglobin Concent 35.0 g/dl RDW Standard Deviation 54.3 fL RDW Coefficient of Variation 18.7 % Platelet Count 628 K/uL Mean Platelet Volume 9.8 fL Sodium Level 143 mmol/L Potassium Level 3.3 mmol/L Chloride Level 120 mmol/L Carbon Dioxide Level 14 mmol/L Anion Gap 9.0 mmol/L Blood Urea Nitrogen 6 mg/dl Creatinine 0.89 mg/dl Est Creatinine Clear Calc Drug Dose 49.5 ml/min Estimated GFR () 82.2 Estimated GFR (Non- 70.9 BUN/Creatinine Ratio 6.4 Random Glucose 90 mg/dl Calcium Level 7.1 mg/dl Magnesium Level 1.6 mg/dl Stool Occult Blood POSITIVE Test 12/26/16 06:38 Bedside Glucose 91 mg/dl Assessment and Plan This is a 61 year old female with a PMH of pancreatic head adenocarcinoma s/p Whipple's with ongoing chemotherapy, insulin dependent DM2, HTN, depression/ anxiety, hypothyroidism, hx. of C. diff colitis in August/September of 2016 presents with diarrhea/weakness Diarrhea, nonspecific colitis 12/26 appreciate GI input will await cultures, stool cultures/studies C. diff is negative continue Cipro + Flagyl 12/25 patient presents with diarrhea, >20 episodes daily since December 19 multiple causes possible: chemotherapy, colitis, C. diff check C. diff, pending check stool studies which have been sent off check TSH Abdominal CT - no acute process noted; possible obstructive process noted continue IVFs, clears no antidiarrheals for now Cipro + Flagyl empirically - improving WBC count consult GI Electrolyte Abnormalities Low K and Mg will replace, check in AM Anemia, likely of chronic disease/cancer and secondary to ongoing chemo 12/26 s/p one unit PRBC Hgb up to >8 monitor to note: stool occult + 8/1 H/H drop to < 7 with weakness and tachycardia type and cross 2 units; will transfuse one unit PRBC recheck H/H four hours post-transfusion pt. has never had a transfusion in the past - monitor for any adverse reactions Hypothyroidism TSH elevated will increase Synthroid to 125mcg recheck TSH as outpatient in 6 weeks Insulin Dependent DM2 insulin sliding scale Depression/Anxiety continue home medications HTN continue ELIEL-I DVT ppx subq heparin FULL CODE
[2016-12-26] MEDS: ACETAMINOPHEN 325 MG TAB PO PRN ×2 (11:32→22:06)
--- NOTE | 2016-12-26 11:52 | DIAGNOSTIC IMAGING REPORT ---
KUB HISTORY: ileus, eval, measure dilation COMPARISON: KUB 12/25/2016. FINDINGS: There again noted multiple dilated gas-filled loops of large and small bowel seen throughout the abdomen. These have slightly improved compared to the prior study. Small bowel measures up to 4 cm, previous measuring 4.8 cm. The colon is also slightly decompressed. There is no gas identified within the rectum at this time. No renal calculi. No ureteral calculi. No pneumoperitoneum or pneumatosis. A pancreatic duct stent is again noted. There are surgical clips within the right upper quadrant. Pneumobilia, unchanged. IMPRESSION: Slight improvement in the distended gas-filled loops of large and small bowel. Electronically signed by: Js Astorga M.D. 12/26/2016 11:51 AM Dictated Date/Time: 12/26/2016 11:49 AM
--- NOTE | 2016-12-26 12:02 | Clinical Documentation Query ---
CLINICAL DOCUMENTATION QUERY Dr. CABRERA, In your clinical opinion is this patient being managed for: ( ) severe protein-calorie malnutrition ( ) Other explanation of clinical findings (Please Explain) ( ) Unable to determine (Please Define) ( ) Need to Discuss ( ) Not Agree The medical record reflects the following clinical findings, treatment, and risk factors. Clinical Indicators: 61 yo female presenting with worsening diarrhea x 6 days. Reported a 10 lb wt loss (9%) in 1 week. Per dietary consult pt with <50% of energy requirements for > 5 days. Pt is described as cachectic/thin. Currently diet is clear liquids. Treatment: recommended boost breeze daily, daily wts, I/O, dietary consult, GI consult, IV fluids, Risk Factors: diarrhea, pancreatic cancer Acute Severe Malnutrition Criteria: (2 criteria needed) Energy intake: <50% of estimated energy requirement for > 5 days Wt loss: 1-2% in 1 wk, 5% in 1 month, or 7.5% in 3 months Body fat: moderate loss of SQ fat from the orbits, triceps or fat overlying the ribs Muscle mass: moderate muscle wasting at the temples, clavicles, shoulders, interosseous spaces, scapula, thigh, calf Fluid accumulation: moderate to severe localized or generalized edema of the extremities, vulva, scrotum-wt loss may be masked by edema Please clarify and document your clinical opinion in the progress notes and discharge summary. Terms such as "probable", "suspected", "likely", "questionable", "possible", or "still to be ruled out" are acceptable. IF IN AGREEMENT, YOU MUST DOCUMENT ABOVE DIAGNOSTIC STATEMENT IN DAILY PROGRESS NOTES AND DISCHARGE SUMMARY. This document is not part of the patient's record. Thank You, Phuong Fabian, CHRISTINA [phone]
[2016-12-26 12:14] VITALS: BP 128/81; PULSE 74; TEMP 36.7; O2SAT 96
[2016-12-26 15:11] VITALS: BP 130/77; PULSE 78; TEMP 36.5; O2SAT 100
--- NOTE | 2016-12-26 15:33 | Surgery Consultation ---
Consultation Date of Consultation: Dec 26, 2016. Attending Physician: Cecille Lees DO History of Present Illness Patient is a 61 year old female with hx of pancreatic cancer s/p Whipple 07/2016 , hx of c. diff infection 08/2016 treated with vanco per pt, currently ongoing chemo for pancreatic ca who is admitted with worsening diarrhea, unable to keep oral intake without nausea or dry heaves, fever (Tmax 101.4 by report) and weight loss. Last colonoscopy with Dr. Live 02/03/15 done for diarrhea and weight loss was normal, biopsies showed no evidence of colitis at that time. ED work up shows elevated WBC count (pt denies receiving Neulasta/Neupogen or prednisone as part of her chemo), hbg 8.2, hypokalemia and hypomagnesemia, CT showed evidence of pancreatic stent and small and large bowel distention concerning for ileus vs obstructive process. KUB this morning still shows dilated bowel loops - ileus vs pSBO C diff, stool and blood cultures pending receiving cipro and flagyl currently denies significant narcotic use prior to admission I got a call for consult possible SBO, now, pt denies any abdominal pain, no nausea, no vomiting, no fever, passed yoselyn and diarrhea, 6 times /day, no bloody stool, Past Medical/Surgical History Medical Problems: (1) Diarrhea Status: Acute (2) Pancreatic cancer Status: Chronic (3) Sepsis Status: Acute Family History Diabetes mellitus FH: heart disease Hypertension Social History Smoking Status: Former Smoker Smokeless Tobacco Use: No Alcohol Use: none Drug Use: none Marital Status: Housing Status: lives with significant other Occupation Status: retired Allergies Coded Allergies: Penicillins (Verified Allergy, Severe, ANAPHYLAXIS, 12/24/16) Sulfa Antibiotics (Verified Allergy, Severe, ANAPHYLAXIS, 12/24/16) Moxifloxacin (Verified Allergy, Intermediate, ITCHINESS/SKIN IRRITATION, ) Nickel (Unverified Allergy, Unknown, LOCAL SKIN IRRIRATION, 12/24/16) Home Medications Scheduled Budesonide/Formoterol Fumarate (Symbicort 160/4.5 Inhaler ), 2 PUFFS INH BID Capecitabine (Xeloda), 500 MG PO UD Duloxetine Hcl (Cymbalta), 60 MG PO DAILY Levothyroxine Sodium (Synthroid), 100 MCG PO DAILY Lisinopril (Prinivil), 10 MG PO DAILY Sucralfate (Sucralfate), 1 GM PO BID Topiramate (Topamax), 50 MG PO HS Scheduled PRN Albuterol Sulfate (Proventil Hfa), 2 PUFFS INH Q4 PRN for SOB/Wheezing Dicyclomine Hcl (Dicyclomine Hcl), 10 MG PO Q8 PRN for abdominal pain Diphenoxylate/Atropine (Lomotil), 1 TAB PO QID PRN for Diarrhea Ibuprofen (Advil), 200 MG PO Q4 PRN for Pain Ipratropium-Albuterol (Duoneb), 1 TREATMENT INH Q4H PRN for Shortness of Breath Lorazepam (Ativan), 0.5 MG PO Q12 PRN for ANXIETY/INSOMNIA Ondansetron Hcl (Zofran), 4 MG PO Q8 PRN for Nausea Oxycodone Ir (Roxicodone Ir), 5-10 MG PO Q4 PRN for Moderate Pain Prochlorperazine Maleate (Compazine), 10 MG PO Q6H PRN for NAUSEA Rizatriptan Benzoate (Maxalt), 5 MG PO UD PRN for Migraine Tramadol Hcl (Ultram), 50 MG PO Q4H PRN for Pain Current Inpatient Medications Current Inpatient Medications Medications (Trade) Dose Ordered Sig/Jesse Route Start Time Stop Time Status Last Admin Dose Admin Potassium Chloride/Sodium Chloride 1,000 ml @ 200 mls/hr Q5H IV 12/24/16 20:00 01/23/17 19:59 12/26/16 05:26 200 MLS/HR Ciprofloxacin/ Dextrose 400 mg/ Prmx 200 ml @ 100 mls/hr Q12 IV 12/25/16 09:00 01/04/17 08:59 12/26/16 10:15 100 MLS/HR Metronidazole 500 mg/Prmx 100 ml @ 100 mls/hr Q8 IV 12/24/16 20:00 01/03/17 19:59 12/26/16 12:52 100 MLS/HR Acetaminophen (Tylenol Tab) 650 mg Q4H PRN PO 12/24/16 18:15 01/23/17 18:14 12/26/16 11:32 650 MG Ondansetron HCl (Zofran Inj) 4 mg Q6H PRN IV 12/24/16 18:15 01/23/17 18:14 12/24/16 22:08 4 MG Albuterol (Ventolin Hfa Inhaler) 2 puffs Q4 PRN INH 12/24/16 18:30 01/23/17 18:29 Budesonide/ Formoterol Fumarate (Symbicort 160/ 4.5 Inh) 2 puffs BID INH 12/24/16 21:00 01/23/17 20:59 12/26/16 09:20 2 PUFFS Duloxetine HCl (Cymbalta Cap) 60 mg DAILY PO 12/25/16 09:00 01/24/17 08:59 12/26/16 09:19 60 MG Albuterol/ Ipratropium (Duoneb) 3 ml Q4H PRN INH 12/24/16 18:30 01/23/17 18:29 Lisinopril (Zestril Tab) 10 mg DAILY PO 12/25/16 09:00 01/24/17 08:59 12/26/16 09:19 10 MG Lorazepam (Ativan Tab) 0.5 mg Q12 PRN PO 12/24/16 18:30 01/23/17 18:29 12/25/16 22:07 0.5 MG Oxycodone HCl (Roxicodone Immediate Rel Tab) 5 mg Q4 PRN PO 12/24/16 18:30 01/07/17 18:29 Prochlorperazine Maleate (Compazine Tab) 10 mg Q6H PRN PO 12/24/16 18:30 01/23/17 18:29 12/26/16 09:19 10 MG Sucralfate (Carafate Tab) 1 gm BID PO 12/24/16 21:00 01/23/17 20:59 12/26/16 09:20 1 GM Topiramate (Topamax Tab) 50 mg HS PO 12/24/16 21:00 01/23/17 20:59 12/25/16 20:26 50 MG Tramadol HCl (Ultram Tab) 50 mg Q4H PRN PO 12/24/16 18:30 01/23/17 18:29 12/25/16 22:07 50 MG Insulin Aspart (novoLOG ASPART) SLIDING SCALE If C... ACHS SC 12/24/16 21:00 01/23/17 20:59 12/25/16 17:15 2 UNITS Glucose (Glucose 40% Gel) 15-30 GRAMS 15 GRAMS... UD PRN PO 12/24/16 18:30 01/23/17 18:29 Glucose (Glucose Chew Tab) 4-8 Tablets 4 Tabl... UD PRN PO 12/24/16 18:30 01/23/17 18:29 Dextrose (Dextrose 50% 50ML Syringe) 25-50ML OF 50% DW IV FOR... UD PRN IV 12/24/16 18:30 01/23/17 18:29 Glucagon (Glucagon Inj) 1 mg UD PRN SQ 12/24/16 18:30 01/23/17 18:29 Enteral Nutritional Formula (Boost Breeze Nutritional Drink) 1 box DAILY PO 12/26/16 09:00 01/25/17 08:59 12/26/16 09:19 1 BOX Amylase/Lipase/ Protease (Pancreaze (Lipase 10,500U) Cap) 1 cap TIDM PO 12/25/16 16:45 01/24/17 16:44 12/26/16 11:32 1 CAP Levothyroxine Sodium (Synthroid Tab) 125 mcg DAILYBB PO 12/26/16 06:00 01/24/17 05:59 12/26/16 05:26 125 MCG Review of Systems Constitutional: No fever, No chills, No sweats, No weight loss, No weakness, No fatigue, No problem reported Eyes: No worsening of vision, No eye pain, No redness, No discharge, No diplopia, No problem reported ENT: No hearing loss, No unusual epistaxis, No nasal symptoms, No sore throat, No tinnitus, No dental problems, No trouble swallowing, No problem reported Respiratory: No cough, No sputum, No wheezing, No shortness of breath, No dyspnea on exertion, No dyspnea at rest, No hemoptysis, No problem reported Abdomen: + diarrhea, + problem reported (pancreatic cancer, S/P whipple's procedure 07/2016) Musculoskeletal: No joint pain, No muscle pain, No swelling, No calf pain, No problem reported Neurologic: No memory loss, No paralysis, No weakness, No numbness/tingling, No vertigo, No balance problems, No problem reported Psychiatric: No depression symptoms, No anhedonism, No anxiety, No insomnia, No substance abuse, No problem reported Endocrine: No fatigue, No excessive thirst, No excessive urination Hematologic / Lymphatic: No abnormal bleeding/bruising, No clotting problems, No swollen lymph nodes, No night sweats, No problem reported Integumentary: No rash, No itch, No new/changing skin lesions, No color change , No bleeding, No problem reported Physical Exam Date Time Temp Pulse Resp B/P (MAP) Pulse Ox O2 Delivery O2 Flow Rate FiO2 12/26/16 15:11 36.5 78 18 130/77 (94) 100 Room Air 12/26/16 12:14 36.7 74 18 128/81 (97) 96 12/26/16 12:00 Room Air 12/26/16 08:03 36.8 90 18 129/68 (88) 96 12/26/16 08:00 Room Air 12/26/16 04:00 Room Air 12/26/16 03:19 36.6 82 20 117/76 (90) 99 Room Air 12/25/16 23:59 Room Air 12/25/16 23:07 36.8 88 18 120/71 (87) 98 Room Air 12/25/16 22:10 36.7 87 18 122/83 99 12/25/16 21:10 36.6 84 18 129/80 99 12/25/16 20:40 36.4 80 18 120/77 100 12/25/16 20:15 36.4 90 18 119/69 (86) 100 Room Air 12/25/16 20:00 Room Air 12/25/16 19:17 36.2 79 18 119/67 (84) 100 Room Air 12/25/16 16:00 Room Air General Appearance: WD/WN, no apparent distress Head: normocephalic Eyes: normal inspection ENT: normal ENT inspection Neck: supple, no JVD Respiratory/Chest: chest non-tender, lungs clear, normal breath sounds, no respiratory distress Cardiovascular: no edema, no gallop, no murmur Abdomen/GI: normal bowel sounds, non tender, soft, no organomegaly, no pulsatile mass Extremities/Musculoskelatal: normal inspection, no calf tenderness, normal capillary refill Neurologic/Psych: no motor/sensory deficits, alert, normal mood/affect Skin: normal color, warm/dry, no rash Laboratory Results Last 24 Hours Test 12/25/16 15:42 12/25/16 16:06 12/25/16 17:29 12/25/16 20:03 Hemoglobin 6.9 g/dL 7.4 g/dL Hematocrit 21.0 % 21.9 % Bedside Glucose 110 mg/dl 117 mg/dl Test 12/25/16 20:30 12/26/16 04:46 12/26/16 06:00 12/26/16 06:38 White Blood Count 19.24 K/uL Red Blood Count 2.75 M/uL Hemoglobin 8.3 g/dL Hematocrit 23.7 % Mean Corpuscular Volume 86.2 fL Mean Corpuscular Hemoglobin 30.2 pg Mean Corpuscular Hemoglobin Concent 35.0 g/dl RDW Standard Deviation 54.3 fL RDW Coefficient of Variation 18.7 % Platelet Count 628 K/uL Mean Platelet Volume 9.8 fL Sodium Level 143 mmol/L Potassium Level 3.3 mmol/L Chloride Level 120 mmol/L Carbon Dioxide Level 14 mmol/L Anion Gap 9.0 mmol/L Blood Urea Nitrogen 6 mg/dl Creatinine 0.89 mg/dl Est Creatinine Clear Calc Drug Dose 49.5 ml/min Estimated GFR () 82.2 Estimated GFR (Non- 70.9 BUN/Creatinine Ratio 6.4 Random Glucose 90 mg/dl Calcium Level 7.1 mg/dl Magnesium Level 1.6 mg/dl Stool Occult Blood POSITIVE Bedside Glucose 91 mg/dl Test 12/26/16 11:29 Bedside Glucose 153 mg/dl Assessment & Plan CT Scan 12/24/2016 IMPRESSION: 1. Considerable postoperative change consistent with what is potentially a partial gastric resection, wall thickening of the residual stomach, as well as evidence for pancreatic drainage tube or stent placement and air within the biliary ductal system presumably secondary to prior sphincterotomy 2. Fatty infiltration of the liver. 3. General colonic and small bowel ileus versus the possibility of a distal colonic obstructive process. 4. Mild body wall anasarca. 5. No evidence for ascites, pneumatosis, or free air. 6. No evidence for abscess or collection. KUB 12/26/2016 IMPRESSION: Slight improvement in the distended gas-filled loops of large and small bowel. IMP: no symptoms and signs for SBO or large bowel obstruction, no surgical indication now, will F/u thanks,
[2016-12-26 19:11] VITALS: BP 123/73; PULSE 78; TEMP 36.2; O2SAT 100
[2016-12-26] MEDS: TOPIRAMATE 25 MG TAB PO SCH (20:36)
[2016-12-26] MEDS: LORAZEPAM 0.5 MG TAB PO PRN (22:05)
[2016-12-26] MEDS: TRAMADOL HCL 50 MG TAB PO PRN (22:06)
[2016-12-27] VITALS: BP 137/80; PULSE 83; TEMP 36.6; O2SAT 99
[2016-12-27 04:00] VITALS: BP 124/75; PULSE 82; TEMP 36.8; O2SAT 100
[2016-12-27] MEDS: TRAMADOL HCL 50 MG TAB PO PRN (04:17)
[2016-12-27] MEDS: NSS + 20MEQ KCL 1000ML 1,000 ML IV SCH (04:17)
[2016-12-27] MEDS: METRONIDAZOLE / NSS 500 MG in PREMIXED NSS 100 ML IV SCH (05:47)
[2016-12-27] MEDS: LEVOTHYROXINE 125 MCG TAB PO SCH (05:47)
[2016-12-27 07:52] VITALS: BP 121/66; PULSE 92; TEMP 36.9; O2SAT 97
--- NOTE | 2016-12-27 08:15 | Clinical Documentation Query ---
Dr. [facility] : CLINICAL DOCUMENTATION QUERY In your clinical opinion is this patient being managed for: ( x ) severe protein-calorie malnutrition ( ) Other explanation of clinical findings (Please Explain) ( ) Unable to determine (Please Define) ( ) Need to Discuss ( ) Not Agree The medical record reflects the following clinical findings, treatment, and risk factors. Clinical Indicators: 61 yo female presenting with worsening diarrhea x 6 days. Reported a 10 lb wt loss (9%) in 1 week. Per dietary consult pt with <50% of energy requirements for > 5 days. Pt is described as cachectic/thin. Currently diet is clear liquids. Treatment: recommended boost breeze daily, daily wts, I/O, dietary consult, GI consult, IV fluids, Risk Factors: diarrhea, pancreatic cancer Acute Severe Malnutrition Criteria: (2 criteria needed) Energy intake: <50% of estimated energy requirement for > 5 days Wt loss: 1-2% in 1 wk, 5% in 1 month, or 7.5% in 3 months Body fat: moderate loss of SQ fat from the orbits, triceps or fat overlying the ribs Muscle mass: moderate muscle wasting at the temples, clavicles, shoulders, interosseous spaces, scapula, thigh, calf Fluid accumulation: moderate to severe localized or generalized edema of the extremities, vulva, scrotum-wt loss may be masked by edema Please clarify and document your clinical opinion in the progress notes and discharge summary. Terms such as "probable", "suspected", "likely", "questionable", "possible", or "still to be ruled out" are acceptable. IF IN AGREEMENT, YOU MUST DOCUMENT ABOVE DIAGNOSTIC STATEMENT IN DAILY PROGRESS NOTES AND DISCHARGE SUMMARY. This document is not part of the patient's record. Thank You, Danny Baig, CHRISTINA [phone]
--- NOTE | 2016-12-27 08:25 | DIAGNOSTIC IMAGING REPORT ---
KUB CLINICAL HISTORY: 61 years-old Female presenting with r/o SBO/diarrhea. TECHNIQUE: Single supine view of the abdomen was obtained. COMPARISON: 12/26/2016. FINDINGS: Interval decrease in gaseous distention of small bowel, which now measures up to 3.4 cm in diameter. Mild gaseous distention of the colon. Possible gas in the rectum. No free intraperitoneal gas or evidence of pneumatosis. However, linear gas in the region of the ang hepatis evidence of pneumobilia. Pancreatic duct stent remains in place. Cholecystectomy clips noted. Suture material or calcification noted in the left upper quadrant. Osseous structures intact. IMPRESSION: 1. Findings consistent with slight improved ileus. 2. Persistent pneumobilia. Electronically signed by: Shane Austin M.D. 12/27/2016 8:24 AM Dictated Date/Time: 12/27/2016 8:21 AM
[2016-12-27] MEDS: CIPROFLOXACIN / D5W 400 MG in PREMIXED IN D5W 200 ML IV SCH (08:48)
[2016-12-27] MEDS: LISINOPRIL 10 MG TAB PO SCH (08:50)
[2016-12-27] MEDS: SUCRALFATE 1 GM TAB PO SCH (08:50)
[2016-12-27] MEDS: INSULIN ASPART 100 UNITS/ML 3 ML PEN SC SCH ×2 (08:50→11:35)
[2016-12-27] MEDS: PANCREAZE (LIPASE 10,500U) CAP PO SCH ×2 (08:50→11:23)
[2016-12-27] MEDS: DULOXETINE HCL 60 MG CAP PO SCH (08:50)
[2016-12-27] MEDS: BUDESONIDE/FORMOTEROL FUMARATE 160/4.5 60 PUFFS/INHALER INH SCH (08:51)
[2016-12-27] MEDS: BOOST BREEZE NUTRITION DRINK 1 BOX PO SCH (08:52)
--- NOTE | 2016-12-27 09:42 | Gastroenterology Progress Note ---
Progress Note Date of Service: Dec 27, 2016 Subjective Pt evaluation today including: conversation w/ patient, physical exam, chart review, lab review Pt was seen and evaluated. No acute events overnight. She wants to go home. She is tolerating a diet. Intermittent bouts of abdominal pain. Persistent diarrhea. C.diff negative. Heme + stool. Stool culture pending. Stool CMV pending. Stool Giardia pending. Stool O&P pending. Fecal fat pending. KUB 12/25/16: No change in the multiple distended gas-filled loops of large and small bowel within the abdomen. This favors an ileus. However, a partial bowel obstruction could also have a similar appearance. Review of Systems Constitutional: No fever Respiratory: No cough Cardiac: No chest pain Abdomen: + diarrhea, No pain, No constipation Medications Current Inpatient Medications Medications (Trade) Dose Ordered Sig/Jesse Route Start Time Stop Time Status Last Admin Dose Admin Potassium Chloride/Sodium Chloride 1,000 ml @ 200 mls/hr Q5H IV 12/24/16 20:00 01/23/17 19:59 12/27/16 04:17 200 MLS/HR Ciprofloxacin/ Dextrose 400 mg/ Prmx 200 ml @ 100 mls/hr Q12 IV 12/25/16 09:00 01/04/17 08:59 12/27/16 08:48 100 MLS/HR Metronidazole 500 mg/Prmx 100 ml @ 100 mls/hr Q8 IV 12/24/16 20:00 01/03/17 19:59 12/27/16 05:47 100 MLS/HR Acetaminophen (Tylenol Tab) 650 mg Q4H PRN PO 12/24/16 18:15 01/23/17 18:14 12/26/16 22:06 650 MG Ondansetron HCl (Zofran Inj) 4 mg Q6H PRN IV 12/24/16 18:15 01/23/17 18:14 12/24/16 22:08 4 MG Albuterol (Ventolin Hfa Inhaler) 2 puffs Q4 PRN INH 12/24/16 18:30 01/23/17 18:29 Budesonide/ Formoterol Fumarate (Symbicort 160/ 4.5 Inh) 2 puffs BID INH 12/24/16 21:00 01/23/17 20:59 12/27/16 08:51 2 PUFFS Duloxetine HCl (Cymbalta Cap) 60 mg DAILY PO 12/25/16 09:00 01/24/17 08:59 12/27/16 08:50 60 MG Albuterol/ Ipratropium (Duoneb) 3 ml Q4H PRN INH 12/24/16 18:30 01/23/17 18:29 Lisinopril (Zestril Tab) 10 mg DAILY PO 12/25/16 09:00 01/24/17 08:59 12/27/16 08:50 10 MG Lorazepam (Ativan Tab) 0.5 mg Q12 PRN PO 12/24/16 18:30 01/23/17 18:29 12/26/16 22:05 0.5 MG Oxycodone HCl (Roxicodone Immediate Rel Tab) 5 mg Q4 PRN PO 12/24/16 18:30 01/07/17 18:29 Prochlorperazine Maleate (Compazine Tab) 10 mg Q6H PRN PO 12/24/16 18:30 01/23/17 18:29 12/26/16 09:19 10 MG Sucralfate (Carafate Tab) 1 gm BID PO 12/24/16 21:00 01/23/17 20:59 12/27/16 08:50 1 GM Topiramate (Topamax Tab) 50 mg HS PO 12/24/16 21:00 01/23/17 20:59 12/26/16 20:36 50 MG Tramadol HCl (Ultram Tab) 50 mg Q4H PRN PO 12/24/16 18:30 01/23/17 18:29 12/27/16 04:17 50 MG Insulin Aspart (novoLOG ASPART) SLIDING SCALE If C... ACHS SC 12/24/16 21:00 01/23/17 20:59 12/25/16 17:15 2 UNITS Glucose (Glucose 40% Gel) 15-30 GRAMS 15 GRAMS... UD PRN PO 12/24/16 18:30 01/23/17 18:29 Glucose (Glucose Chew Tab) 4-8 Tablets 4 Tabl... UD PRN PO 12/24/16 18:30 01/23/17 18:29 Dextrose (Dextrose 50% 50ML Syringe) 25-50ML OF 50% DW IV FOR... UD PRN IV 12/24/16 18:30 01/23/17 18:29 Glucagon (Glucagon Inj) 1 mg UD PRN SQ 12/24/16 18:30 01/23/17 18:29 Enteral Nutritional Formula (Boost Breeze Nutritional Drink) 1 box DAILY PO 12/26/16 09:00 01/25/17 08:59 12/27/16 08:52 1 BOX Amylase/Lipase/ Protease (Pancreaze (Lipase 10,500U) Cap) 1 cap TIDM PO 12/25/16 16:45 01/24/17 16:44 12/27/16 08:50 1 CAP Levothyroxine Sodium (Synthroid Tab) 125 mcg DAILYBB PO 12/26/16 06:00 01/24/17 05:59 12/27/16 05:47 125 MCG Objective Vital Signs Date Time Temp Pulse Resp B/P (MAP) Pulse Ox O2 Delivery O2 Flow Rate FiO2 12/27/16 08:00 Room Air 12/27/16 07:52 36.9 92 18 121/66 (84) 97 12/27/16 04:00 36.8 82 16 124/75 (91) 100 Room Air 12/27/16 04:00 Room Air 12/27/16 00:00 36.6 83 16 137/80 (99) 99 Room Air Nasal Cannula 12/27/16 00:00 Room Air 12/26/16 20:00 Room Air 12/26/16 19:11 36.2 78 18 123/73 (90) 100 Room Air 12/26/16 16:00 Room Air 12/26/16 15:11 36.5 78 18 130/77 (94) 100 Room Air 12/26/16 12:14 36.7 74 18 128/81 (97) 96 12/26/16 12:00 Room Air Physical Exam General Appearance: no apparent distress Eyes: PERRL ENT: hearing grossly normal Neck: supple Respiratory/Chest: lungs clear Cardiovascular: regular rate, rhythm Abdomen: normal bowel sounds, non tender, soft Neurologic/Psych: alert, normal mood/affect, oriented x 3 Skin: normal color Laboratory Results Last 24 Hours Test 12/26/16 11:29 12/26/16 15:54 12/26/16 19:58 12/27/16 06:46 Bedside Glucose 153 mg/dl 110 mg/dl 121 mg/dl 95 mg/dl Assessment and Plan Patient is a 61 year old female ongoing chemo for pancreatic ca, hx of c diff infection 08/2016 admitted with leukocytosis, worsening diarrhea, electrolyte abnormalities, weight loss, inability to take PO, CT concerning for ileus vs pSBO. Stools unremarkable to date - she is to get KUB today. Blood culture without any growth to date. Source of leukocytosis unknown. Surgery evaluated yesterday, no surgical indications. Pt is feeling well and would like to be discharged. - Etiology of diarrhea unclear - chemo induced, infectious, chronic - colonoscopy with biopsies in 2014 was negative (CALLUM Dozier) - will need follow up with her established GI in [place] Dr. Nguyen - Questran PRN - Follow up blood culture GI to sign off. Call with questions or concerns. I saw and evaluated the patient. She is hoping to get discharge from the hospital today. Given her diarrhea I would suggest a trial of Questran 4 g 1-2 times daily. She will be followed with her regular GI provider in [place].
[2016-12-27] MEDS ORDERED: CHOLESTYRAMINE LIGHT 4 GM PKT PO PRN (09:45)
[2016-12-27] MEDS ORDERED: QSTP PO (11:29)
--- NOTE | 2016-12-27 11:32 | Discharge Instructions ---
Discharge Instructions Date of Service Dec 27, 2016. Admission Reason for Admission: Dehydration, Leukocytosis Discharge Discharge Diagnosis / Problem: DIARRHEA, DEHYDRATION , ANEMIA , LEUKOCYTOSIS Discharge Goals Goal(s): Decrease discomfort, Increase independence, Improve disease control, Diagnostic testing, Therapeutic intervention Activity Recommendations Activity Limitations: as noted below ( TOLERATED ) Shower/Bathe: no limitations . Instructions / Follow-Up Instructions / Follow-Up HOSPITAL FOLLOW UP WITH FAMILY PHYSICIAN IN A WEEK , PLEASE CALL OFFICE FOR APPOINTMENT LAB WORK : COMPLETE BLOOD COUNT ON Saturday12/31/16 PLEASE FOLLOW UP WITH GASTROENTEROLOGY FOR ONGOING CARE NEW MEDICATION : CHOLESTYRAMINE 1 PK DAILY NEEDED FOR DIARRHEA DO NOT TAKE MOTRIN , ADVIL , ASPIRIN , IBUPROFEN CAN CAUSE GASTRITIS / INTESTINAL BLEED AND ANEMIA Current Hospital Diet Patient's current hospital diet: Diabetes Type 2 Diet Discharge Diet Recommended Diet: Diabetes Type 2 Diet Pending Studies Studies pending at discharge: yes List of pending studies: COMPLETE BLOOD COUNT ON Saturday12/31/16 Medical Emergencies . Who to Call and When: Medical Emergencies: If at any time you feel your situation is an emergency, please call 911 immediately. . Non-Emergent Contact Non-Emergency issues call your: Primary Care Provider . . "Provider Documentation" section prepared by Tala Cruz. . VTE Core Measure Inpt VTE Proph given/why not?: Enoxaparin (Lovenox)SQ
--- NOTE | 2016-12-27 11:43 | Progress Note ---
Internal Med Progress Note Date of Service: Dec 27, 2016. Provider Documentation: SUBJECTIVE: no complain of abdominal pain or nausea tolerating diet well no fever or chills had one episode of bowel movement today does not have any dizzy spell or lightheadedness feels well enough to go home OBJECTIVE: Vital Signs-as noted below Exam: General-no sign of distress Eyes-sclera non icteric ENT-NAD Neck-NO JVD Lungs-CTA Heart-regular S1/S2 Abdomen-soft, non tender Extremities-no edema or deformity Neuro-AAO x3, no focal deficit Lab data as noted below. ASSESSMENT & PLAN: This is a 61 year old female with a PMH of pancreatic head adenocarcinoma s/p Whipple's with ongoing chemotherapy, insulin dependent DM2, HTN, depression/ anxiety, hypothyroidism, hx. of C. diff colitis in August/September of 2016 presents with diarrhea/weakness Diarrhea /no evidence of colitis symptom has resolved pt mention she has had diarrhea for past 2 yrs ( due to chronic pancreatitis ) episodes for bowel movements has improved no nausea or abdominal pain tolerating diet appreciate GI input-started on Cholestyramine blood cultures, stool cultures/studies-negative D/c Cipro + Flagyl Electrolyte Abnormalities due to GI loss corrected Anemia, likely of chronic disease/cancer and secondary to ongoing chemo s/p one unit PRBC Hgb up to >8 gets out pt lab check weekly at Heme onc office STOOL HEME POSITIVE : pt is asked to avoid NSAID's ( was on Motrin PRN ) repeat H&H as out pt no blood in stool or dark stool noted pt follows with GI at [place] Last colonoscopy was in 2015 pt is asked to follow up with GI , next appointment scheduled in 6 weeks SEVERE PROTEIN CALORIE MALNUTRITION : hx of pancreatic CA s/p Whipple procedure on chemo tx has significant wt loss ; Low BMI 20 very poor appetite chronic diarrhea for pancreatic insufficiency for over 2 yrs cont low residue diet /on pancreatic enzyme supplement dietary consult appreciated Hypothyroidism TSH elevated increase Synthroid to 125mcg recheck TSH as outpatient in 6 weeks Insulin Dependent DM2 insulin sliding scale Depression/Anxiety continue home medications HTN continue ELIEL-I DVT ppx subq heparin FULL CODE DISPOSITION Stable to be discharged home today Vital Signs: Date Time Temp Pulse Resp B/P (MAP) Pulse Ox O2 Delivery O2 Flow Rate FiO2 12/27/16 11:59 36.9 92 18 97 Room Air 12/27/16 08:00 Room Air 12/27/16 07:52 36.9 92 18 121/66 (84) 97 12/27/16 04:00 36.8 82 16 124/75 (91) 100 Room Air 12/27/16 04:00 Room Air 12/27/16 00:00 36.6 83 16 137/80 (99) 99 Room Air Nasal Cannula 12/27/16 00:00 Room Air 12/26/16 20:00 Room Air 12/26/16 19:11 36.2 78 18 123/73 (90) 100 Room Air Lab Results: Results Past 24 Hours Test 12/26/16 19:58 12/27/16 06:46 12/27/16 11:22 Range/Units Bedside Glucose 121 95 182 70-90 mg/dl
--- NOTE | 2016-12-27 11:57 | Surgery Progress Note ---
Surgery Progress Note Date of Service Dec 27, 2016. Subjective + feeling well pt is doing better, no abdominal pain, no nausea, no vomiting, pt wants to go home today, Objective Vital Signs: Date Time Temp Pulse Resp B/P (MAP) Pulse Ox O2 Delivery O2 Flow Rate FiO2 12/27/16 08:00 Room Air 12/27/16 07:52 36.9 92 18 121/66 (84) 97 12/27/16 04:00 36.8 82 16 124/75 (91) 100 Room Air 12/27/16 04:00 Room Air 12/27/16 00:00 36.6 83 16 137/80 (99) 99 Room Air Nasal Cannula 12/27/16 00:00 Room Air 12/26/16 20:00 Room Air 12/26/16 19:11 36.2 78 18 123/73 (90) 100 Room Air 12/26/16 16:00 Room Air 12/26/16 15:11 36.5 78 18 130/77 (94) 100 Room Air 12/26/16 12:14 36.7 74 18 128/81 (97) 96 12/26/16 12:00 Room Air Head: normocephalic Neck: supple, no JVD Abdomen: normal bowel sounds, non tender, non distended, soft Extremities: normal range of motion, non-tender, normal inspection Laboratory Results: Results Past 24 Hours Test 12/26/16 15:54 12/26/16 19:58 12/27/16 06:46 12/27/16 11:22 Range/Units Bedside Glucose 110 121 95 182 70-90 mg/dl Assessment & Plan F/U possible SBO pt is doing better, passed gas and BM, no abdominal pain sign off today, follow up her surgeon as needed, call for questions, and concerns, thanks,
--- NOTE | 2016-12-27 11:57 | Surgery Progress Note ---
Surgery Progress Note Date of Service Dec 27, 2016. Subjective Post OP Day: HD # 3 + feeling well, + bowel movement, + flatus, + diet, No complaints, No chest pain , No SOB, No nausea, No vomiting Objective Vital Signs: Date Time Temp Pulse Resp B/P (MAP) Pulse Ox O2 Delivery O2 Flow Rate FiO2 12/27/16 08:00 Room Air 12/27/16 07:52 36.9 92 18 121/66 (84) 97 12/27/16 04:00 36.8 82 16 124/75 (91) 100 Room Air 12/27/16 04:00 Room Air 12/27/16 00:00 36.6 83 16 137/80 (99) 99 Room Air Nasal Cannula 12/27/16 00:00 Room Air 12/26/16 20:00 Room Air 12/26/16 19:11 36.2 78 18 123/73 (90) 100 Room Air 12/26/16 16:00 Room Air 12/26/16 15:11 36.5 78 18 130/77 (94) 100 Room Air 12/26/16 12:14 36.7 74 18 128/81 (97) 96 12/26/16 12:00 Room Air General Appearance: no apparent distress, + thin Head: normocephalic, atraumatic Neck: trachea midline Respiratory/Chest: no respiratory distress, no accessory muscle use Abdomen: normal bowel sounds, non tender, non distended, soft Laboratory Results: Results Past 24 Hours Test 12/26/16 15:54 12/26/16 19:58 12/27/16 06:46 12/27/16 11:22 Range/Units Bedside Glucose 110 121 95 182 70-90 mg/dl Assessment & Plan Partial SBO vs ileus-resolved -vitals stable - +bowel function - abdomen soft and benign - tolerating regular diet Plan: No surgical indication at this time Patient's abdomen benign, tolerating diet, no nausea or vomiting. Continue medical management, possible d/c home today
[2016-12-27 11:59] VITALS: BP 121/66; PULSE 92; TEMP 36.9; O2SAT 97
--- NOTE | 2016-12-27 16:58 | Discharge Summary ---
Discharge Summary Date of Service Dec 27, 2016. Discharge Summary Admission Date: Dec 24, 2016 at 18:10 Discharge Date: Dec 27, 2016 Discharge Disposition: Home Principal Diagnosis: DIARRHEA, DEHYDRATION , ANEMIA , LEUKOCYTOSIS Procedures: CT ABDOMEN /PELVIS : IMPRESSION: 1. Considerable postoperative change consistent with what is potentially a partial gastric resection, wall thickening of the residual stomach, as well as evidence for pancreatic drainage tube or stent placement and air within the biliary ductal system presumably secondary to prior sphincterotomy 2. Fatty infiltration of the liver. 3. General colonic and small bowel ileus versus the possibility of a distal colonic obstructive process. 4. Mild body wall anasarca. 5. No evidence for ascites, pneumatosis, or free air. 6. No evidence for abscess or collection. Consultations: [facility] GASTRO[facility] SURGERY Medication Reconciliation New Medications: Cholestyramine (Cholestyramine Light) 4 Gm Pack 4 GM PO DAILY PRN for Diarrhea for 30 Days, #30 PKT 3 Refills Continued Medications: Albuterol Sulfate (Proventil Hfa) 108 Mcg/Act Aer 2 PUFFS INH Q4 PRN for SOB/Wheezing Budesonide/Formoterol Fumarate (Symbicort 160/4.5 Inhaler ) Aero 2 PUFFS INH BID, INHALER Capecitabine (Xeloda) 500 Mg Tab 500 MG PO UD, TAB 3 tablets by mouth twice a day for 2 weeks followed by 1 week off. Dicyclomine Hcl (Dicyclomine Hcl) 10 Mg Cap 10 MG PO Q8 PRN for abdominal pain for 30 Days, #90 CAP 3 Refills Diphenoxylate/Atropine (Lomotil) Tab 1 TAB PO QID PRN for Diarrhea, TAB Duloxetine Hcl (Cymbalta) 60 Mg Cap 60 MG PO DAILY, CAP Ipratropium-Albuterol (Duoneb) 3 Ml Nebu 1 TREATMENT INH Q4H PRN for Shortness of Breath, INHA Levothyroxine Sodium (Synthroid) 100 Mcg Tab 100 MCG PO DAILY, TAB Lisinopril (Prinivil) 10 Mg Tab 10 MG PO DAILY, TAB Lorazepam (Ativan) 0.5 Mg Tab 0.5 MG PO Q12 PRN for ANXIETY/INSOMNIA, TAB Ondansetron Hcl (Zofran) 4 Mg Tab 4 MG PO Q8 PRN for Nausea, TAB Oxycodone Ir (Roxicodone Ir) 5 Mg Tab 5-10 MG PO Q4 PRN for Moderate Pain, TAB Prochlorperazine Maleate (Compazine) 10 Mg Tab 10 MG PO Q6H PRN for NAUSEA, TAB Rizatriptan Benzoate (Maxalt) 5 Mg Tab 5 MG PO UD PRN for Migraine, TAB Sucralfate (Sucralfate) 1 Gm Tab 1 GM PO BID, TAB Topiramate (Topamax) 50 Mg Tab 50 MG PO HS, TAB Tramadol Hcl (Ultram) 50 Mg Tab 50 MG PO Q4H PRN for Pain, TAB PRN PAIN Discontinued Medications: Ibuprofen (Advil) 200 Mg Tab 200 MG PO Q4 PRN for Pain, TAB Admission Information HPI (per Admitting provider): This is a 61 y/o female with PMH of pancreatic cancer s/p Whipple on chemotherapy and other problems listed below who presents to the ED with diarrhea. Patient follows with Dr. Gagna Goldstein for oncology. Patient last received IV chemo on 12/10 and last oral chemo was completed on 12/06. She was seen by Lyndsay Chen PA-C at clinic today then was sent to the ER instead of getting her chemo treatment. Patient reports worsening of chronic diarrhea starting 5 days ago with up to 20 liquid BM per day. She had two days of fever ( Tmax 101.4) and chills, with last fever 5 days ago. She reports associated weight loss of 10 lb in the past week (on top of 80 lb wt loss since CA dx), CHUA , lightheadedness, fatigue. States she "can't keep anything in" including food and liquids due to diarrhea. She was taking several tabs of Lomotil per day. Last BM was last night. Passing small amount of flatus today. Pt denies HODGE, URI symptoms, cough, SOB, chest pain, abdominal pain, hematochezia, melena, urinary changes, rash, edema. Denies issues w/ her port. Last abx were several months ago when she was treated with vancomycin for her second episode of C. diff. Patient states she was tested for C. diff 4 days ago through her crester in [place] and was told results were negative. Physical Exam (per Admitting): General Appearance: no apparent distress, + cachetic, + pertinent finding ( alert cooperative chronically ill 61 y/o female, at bedside) Head: normocephalic, atraumatic Eyes: normal inspection, PERRL, EOMI ENT: hearing grossly normal, pharynx normal Neck: no adenopathy, trachea midline Respiratory/Chest: lungs clear, normal breath sounds, no respiratory distress, no accessory muscle use, + pertinent finding (port in left chest, no eythema ) Cardiovascular: regular rate, rhythm, no murmur Abdomen/GI: normal bowel sounds, non tender, soft Back: no CVA tenderness Extremities/Musculoskelatal: no calf tenderness, no pedal edema Neurologic/Psych: alert, normal mood/affect, oriented x 3 Skin: normal color, warm/dry Hospital Course This is a 61 year old female with a PMH of pancreatic head adenocarcinoma s/p Whipple's with ongoing chemotherapy, insulin dependent DM2, HTN, depression/ anxiety, hypothyroidism, hx. of C. diff colitis in August/September of 2016 presents with diarrhea/weakness Diarrhea /no evidence of colitis symptom has resolved pt mention she has had diarrhea for past 2 yrs ( due to chronic pancreatitis ) episodes for bowel movements has improved no nausea or abdominal pain tolerating diet appreciate GI input-started on Cholestyramine blood cultures, stool cultures/studies-negative D/c Cipro + Flagyl Electrolyte Abnormalities due to GI loss corrected Anemia, likely of chronic disease/cancer and secondary to ongoing chemo s/p one unit PRBC Hgb up to >8 gets out pt lab check weekly at Heme onc office STOOL HEME POSITIVE : pt is asked to avoid NSAID's ( was on Motrin PRN ) repeat H&H as out pt no blood in stool or dark stool noted pt follows with GI at [place] Last colonoscopy was in 2015 pt is asked to follow up with GI , next appointment scheduled in 6 weeks SEVERE PROTEIN CALORIE MALNUTRITION : hx of pancreatic CA s/p Whipple procedure on chemo tx has significant wt loss ; Low BMI 20 very poor appetite chronic diarrhea for pancreatic insufficiency for over 2 yrs cont low residue diet /on pancreatic enzyme supplement dietary consult appreciated Hypothyroidism TSH elevated increase Synthroid to 125mcg recheck TSH as outpatient in 6 weeks Insulin Dependent DM2 insulin sliding scale Depression/Anxiety continue home medications HTN continue ELIEL-I DVT ppx subq heparin FULL CODE DISPOSITION Stable to be discharged home today Total time spent on discharge = 35 mins This includes examination of the patient, discharge planning, medication reconciliation, and communication with other providers. Discharge Instructions Discharge Instructions Date of Service Dec 27, 2016. Admission Reason for Admission: Dehydration, Leukocytosis Discharge Discharge Diagnosis / Problem: DIARRHEA, DEHYDRATION , ANEMIA , LEUKOCYTOSIS Discharge Goals Goal(s): Decrease discomfort, Increase independence, Improve disease control, Diagnostic testing, Therapeutic intervention Activity Recommendations Activity Limitations: as noted below ( TOLERATED ) Shower/Bathe: no limitations . Instructions / Follow-Up Instructions / Follow-Up HOSPITAL FOLLOW UP WITH FAMILY PHYSICIAN IN A WEEK , PLEASE CALL OFFICE FOR APPOINTMENT LAB WORK : COMPLETE BLOOD COUNT ON Saturday12/31/16 PLEASE FOLLOW UP WITH GASTROENTEROLOGY FOR ONGOING CARE NEW MEDICATION : CHOLESTYRAMINE 1 PK DAILY NEEDED FOR DIARRHEA DO NOT TAKE MOTRIN , ADVIL , ASPIRIN , IBUPROFEN CAN CAUSE GASTRITIS / INTESTINAL BLEED AND ANEMIA Current Hospital Diet Patient's current hospital diet: Diabetes Type 2 Diet Discharge Diet Recommended Diet: Diabetes Type 2 Diet Pending Studies Studies pending at discharge: yes List of pending studies: COMPLETE BLOOD COUNT ON Saturday12/31/16 Medical Emergencies . Who to Call and When: Medical Emergencies: If at any time you feel your situation is an emergency, please call 911 immediately. . Non-Emergent Contact Non-Emergency issues call your: Primary Care Provider . . "Provider Documentation" section prepared by Tala Cruz. . VTE Core Measure Inpt VTE Proph given/why not?: Enoxaparin (Lovenox)SQ
[2016-12-28 12:12] LABS: ISOSPORA+CYCLOSPORA NOT DETECTED (NOT DETECTED); O&P GIARDIA AG NOT DETECTED (NOT DETECTED)
[2016-12-28 13:38] LABS: CMV DNA PCR QUAL NOT DETECTED
[2017-01-06] MEDS ORDERED: Boost Nutritional Drink PO (11:08)
[2017-01-06] MEDS ORDERED: LACT10CA3 PO (11:08)
[2017-01-06] MEDS ORDERED: CPR500 PO (11:08)
[2017-01-06] MEDS ORDERED: MTR500 PO (11:08)
== END 2016-12-27 13:05 | disposition home or self-care (01) | DRG 640 ==
LOC: C.EDB 13:42 → C.2T 18:10 → ENRESERV 18:30
PROVIDERS: ADMIT Internal Medicine; ATTEND Hospitalist
DX: E86.0 Dehydration (principal); E43 Unspecified severe protein-calorie malnutrition; C25.9 Malignant neoplasm of pancreas, unspecified; R19.7 Diarrhea, unspecified; D63.8 Anemia in other chronic diseases classified elsewhere; D72.829 Elevated white blood cell count, unspecified; E11.9 Type 2 diabetes mellitus without complications; I10 Essential (primary) hypertension; F32.9 Major depressive disorder, single episode, unspecified; F41.9 Anxiety disorder, unspecified; E03.9 Hypothyroidism, unspecified; T45.1X5A Adverse effect of antineoplastic and immunosuppressive drugs, initial encounter; R19.5 Other fecal abnormalities; E87.8 Other disorders of electrolyte and fluid balance, not elsewhere classified; K21.9 Gastro-esophageal reflux disease without esophagitis; J45.909 Unspecified asthma, uncomplicated; G43.909 Migraine, unspecified, not intractable, without status migrainosus; E87.6 Hypokalemia; G25.81 Restless legs syndrome; E83.42 Hypomagnesemia; Z79.51 Long term (current) use of inhaled steroids; Z86.19 Personal history of other infectious and parasitic diseases; Z79.899 Other long term (current) drug therapy; Z87.891 Personal history of nicotine dependence; Z79.1 Long term (current) use of non-steroidal anti-inflammatories (NSAID); Z79.891 Long term (current) use of opiate analgesic

== ENCOUNTER 2017-01-02 23:10 | Inpatient (IN) | payer OTHER ==
[~2017-01-02] VITALS: Ht 160 cm; Wt 50.6 kg
[2017-01-02 23:10] VITALS: BP 125/82; PULSE 82; TEMP 36.8; O2SAT 98; Ht 160 cm; Wt 50.6 kg
[~2017-01-02 23:10] MED LIST changes: -ALBUAER; +ALBUAER INH; -ASPI325T45 PO; -BECL0.3A INH; -CARV6.252 PO; +DICY10CA12 PO; +DIPH-416 PO; -INSUINJ12 SC; +IPRASOL4 INH; +LISI10TA PO; +LORA-741 PO; -LSN/2025 PO; -METF-384 PO; -NRN/300 PO; -NVLGI SC; +ONDA4TAB46 PO; +OXYC1TAB3 PO; +PROC1TAB5 PO; +QSTP PO; +RIZA5TAB10 PO; +SUCR1TAB PO; -SUMA25TA; +SYMIN160 INH; -TOPI50TA24 PO; +TPM/50 PO; +XLD/500 PO; -duoneb NEB
[2017-01-02] MEDS ORDERED: POTA10CA28 PO (23:31)
[2017-01-02] MEDS ORDERED: IBUP-103 PO (23:31)
[2017-01-02] MEDS ORDERED: PANC6000 (23:31)
[2017-01-03] VITALS (8 sets, daily range): BP systolic 94–119; BP diastolic 55–76; PULSE 85–104; TEMP 36.3–37; O2SAT 95–99
[2017-01-03] MEDS ORDERED: ENOXAPARIN 40 MG/0.4 ML SYR SC SCH (00:30)
[2017-01-03] MEDS ORDERED: ALBUTEROL HFA 8 GM INHALER INH PRN (00:30)
[2017-01-03] MEDS ORDERED: ONDANSETRON INJ 2 MG/ML 2 ML VIAL IV PRN (00:30)
[2017-01-03] MEDS ORDERED: CHOLESTYRAMINE LIGHT 4 GM PKT PO PRN (00:30)
[2017-01-03] MEDS ORDERED: DIPHENOXYLATE/ATROPINE 2.5/0.025MG TAB PO PRN (00:30)
[2017-01-03] MEDS ORDERED: RIZATRIPTAN BENZOATE 10 MG TAB PO PRN (00:30)
[2017-01-03] MEDS ORDERED: ACETAMINOPHEN 325 MG TAB PO PRN (00:30)
[2017-01-03] MEDS ORDERED: ONDANSETRON 4 MG TAB PO PRN (00:30)
[2017-01-03] MEDS ORDERED: ALBUT/IPRATROP 3MG/0.5MG NEB 3 ML VIAL INH PRN (00:30)
[2017-01-03] MEDS ORDERED: PROCHLORPERAZINE MALEATE 10 MG TAB PO PRN (00:30)
[2017-01-03] MEDS: OXYCODONE HCL IR 5 MG TAB (IMMEDIATE RELEASE) PO PRN ×3 (01:24→23:52)
[2017-01-03] MEDS: LORAZEPAM 0.5 MG TAB PO PRN ×2 (01:25→23:52)
[2017-01-03] MEDS: NSS + 20MEQ KCL 1000ML 1,000 ML IV SCH ×4 (01:25→23:52)
[2017-01-03] MEDS ORDERED: GLUCOSE 40% GEL 15 GM TUBE PO PRN (01:45)
[2017-01-03] MEDS ORDERED: DEXTROSE 50% 50 ML SYR IV PRN (01:45)
[2017-01-03] MEDS ORDERED: GLUCOSE 10 TABS/TUBE PO PRN (01:45)
[2017-01-03] MEDS ORDERED: GLUCAGON FOR INJ 1 MG VIAL SQ PRN (01:45)
[2017-01-03] MEDS ORDERED: HYDROmorphone INJ 0.5 MG/0.5 ML SYR IV PRN ×2 (02:15→06:15)
[2017-01-03] MEDS ORDERED: HYDROmorphone INJ 1 MG/ML SYR IV STA (03:24)
--- NOTE | 2017-01-03 03:32 | HISTORY & PHYSICAL EXAMINATION ---
DATE OF ADMISSION: 01/02/2017 PRIMARY CARE PROVIDER: Dr Malhotra. CHIEF COMPLAINT: Lower abdominal pain since early this morning. HISTORY OF PRESENT COMPLAINT: She is a 61-year-old female with significant past medical history including chronic pancreatitis, status post Whipple procedure, noted to have pancreatic cancer, GERD, hypertension, hypothyroidism and diabetes who apparently has been complaining of abdominal pain in the left lower quadrant since this morning. The pain was very mild initially, that went off but at 11 o'clock it came back with more severe pain, associated with nausea but no vomiting and the pain has been there since then constantly with occasional exacerbation. She has had her last bowel movement yesterday morning and usually she has 4-20 bowel movements secondary to chronic pancreatitis. She went to [facility] Emergency Room and a CAT scan of the abdomen and pelvis did show acute colitis and from that point with high white count, she was transferred to [facility] for continuation of care. The ER physician did talk to the on-call oncologist, Dr. Gilliland, before the transfer. She received IV ciprofloxacin and Flagyl in the Emergency Room before transfer. In [facility], she denies to have any significant abdominal pain and does not have any chest pain, shortness of breath, nausea, vomiting, and no numbness or tingling in the extremities. No fever, chills or rigors. No acute arthritis. PAST MEDICAL HISTORY: Significant for chronic pancreatitis status post Whipple procedure in July of this year, pancreatic cancer, GERD, hypertension, hypothyroidism, probable COPD, and restless leg syndrome. Also, she has diabetes. PAST SURGICAL HISTORY: Significant for exploratory laparotomy, hysterectomy, tonsillectomy as a child and Whipple procedure in July of this year. FAMILY HISTORY: Significant for diabetes mellitus runs in the family. Father did have heart disease and hypertension. SOCIAL HISTORY: She used to smoke in the past. She does not use any alcohol. she lives with her significant other. ALLERGIES: MOXIFLOXACIN, NICKEL, PENICILLIN AND SULFA ANTIBIOTICS. MEDICATIONS: As an outpatient, she has been on ibuprofen 200 mg t.i.d., Gelora 500 mg as directed but she did not take it today, pancreatic lipase 36,000 units as directed, albuterol HFA 2 puffs q. 4 hourly as needed, Symbicort 2 puffs b.i.d., cholestyramine 4 g daily as needed for diarrhea, dicyclomine 10 mg q. 8 hourly as needed, Lomotil 1 tablet q.i.d. as needed, Cymbalta 60 mg daily, DuoNeb 3 mL nebulized solution as directed, Synthroid 100 mcg daily, lisinopril 10 mg daily, Ativan 0.5 mg q. 12 hourly as needed, Zofran 4 mg tablet q. 8 hourly p.r.n., oxycodone 5 mg tablet 5-10 mg q. 4 hourly as needed, potassium chloride/Micro-K 10 mEq twice daily, Compazine 10 mg p.o. q. 6 hourly p.r.n. for nausea, sucralfate 1 g b.i.d., Topamax 50 mg at night, Tramadol 50 mg q. 4 hourly as needed. REVIEW OF SYSTEMS: Other systems review unremarkable except those mentioned in history of present complaint. PHYSICAL EXAMINATION: GENERAL: On examination on the medical floor, she was still having some pain in the lower abdomen in left side. VITAL SIGNS: Temperature 36.8, pulse of 85, blood pressure 104/58, saturation 96%. HEENT: Unremarkable. NECK: Supple. No JVD, no bruit. CHEST: Decreased breath sounds but no wheezing and/or crackles. HEART: S1, S2 regular. ABDOMEN: Soft. Tender in the epigastrium and the hypogastrium and also left lower quadrant. No guarding, no rigidity. Bowel sounds present. EXTREMITIES: Trace edema bilaterally in the foot. CENTRAL NERVOUS SYSTEM: She was alert, awake, oriented x3. MUSCULOSKELETAL: No acute arthritis involving any joint. LABORATORY DATA: Noted from [facility], white count was 32.4, H&H 10.2 platelet was 516, glucose 138, BUN 7, creatinine 0.9, sodium 143, potassium 3.2, chloride 110, carbon dioxide 23, calcium 7.9, total protein 4.8, albumin 1.7, bilirubin total 1.4, AST 26, ALT 17, alkaline phos 162, lactic acid was 1.6. CT of the abdomen and pelvis impression, wall thickening involving the stomach and small bowel loops and portions of the colon which may be secondary to third spacing small to moderate amount of pelvic ascites. Pancreatic stent is noted, poor visualization of the pancreatic head with multiple clips in the region status post Whipple procedure, diffuse hepatic steatosis, small hiatal hernia. The CAT scan is not supporting the diagnosis of acute colitis. Abdominal x-ray, nonobstructive bowel gas pattern. EKG not in the chart. IMPRESSION AND PLAN: 1. Left lower quadrant abdominal pain with tenderness. CT scan, colon wall thickening, probable diverticulitis. Blood culture was taken and he was started with intravenous Cipro and Flagyl. So we will monitor the patient while in the hospital. 2. Leukocytosis, could be secondary to diverticulitis. Chest x-ray will be done to rule out any pneumonia. Urine will be sent for culture as well. For now, we will continue with Cipro and Flagyl. 3. Chronic obstructive pulmonary disease, has been on inhalers, continue with those. 4. Pancreatic cancer with chronic pancreatitis status post Whipple procedure. She got last chemo last Saturday and she has been on Xeloda. We will hold Xeloda at this time. We may need to consult Dr. Goldstein for ongoing care of pancreatic cancer. 5. Hypothyroidism. Continue with replacement. 6. Depression. Continue with antidepressant medications. 7. Diabetes type 2. We will put her on sliding scale coverage. 8. Deep venous thrombosis prophylaxis with Lovenox. 9. Gastrointestinal prophylaxis with PPI. In my clinical opinion, the beneficiary meets criteria for 2-midnight stay in the hospital. NASEEM
[2017-01-03] MEDS: DICYCLOMINE HCL 10 MG CAP PO PRN ×2 (04:57→08:42)
[2017-01-03] MEDS ORDERED: MoRPHine SULFATE 4 MG/ML 1 ML CARP\\VIAL IV PRN (05:15)
[2017-01-03] MEDS: TRAMADOL HCL 50 MG TAB PO PRN (05:20)
[2017-01-03] MEDS: LEVOTHYROXINE 100 MCG TAB PO SCH (05:49)
[2017-01-03 06:59] LABS: HEMATOCRIT 28.5 % (37-47); MEAN CORPUSCULAR HEMOGLOBIN 29.6 pg (25-34); MEAN CORPUSCULAR HGB CONC 33.7 g/dl (32-36); MEAN PLATELET VOLUME 9.8 fL (7.4-10.4); PLATELET COUNT 454 K/uL (130-400); RED BLOOD COUNT 3.24 M/uL (4.2-5.4); WHITE BLOOD COUNT 22.29 K/uL (4.8-10.8)
[2017-01-03] MEDS: INSULIN ASPART 100 UNITS/ML 3 ML PEN SC SCH ×4 (07:00→20:25)
[2017-01-03 07:07] LABS: INR 1.2 (0.9-1.1); PROTHROMBIN TIME (PATIENT) 12.8 SECONDS (9.0-12.0)
--- NOTE | 2017-01-03 07:26 | DIAGNOSTIC IMAGING REPORT ---
CHEST ONE VIEW PORTABLE HISTORY: Cough. r/o pneumonia COMPARISON: Chest 12/24/2016. FINDINGS: Right jugular Port-A-Cath terminates at the SVC. No pneumothorax. Cholecystectomy. The heart is stable in size. Bibasilar linear densities suggestive of scarring or subsegmental atelectasis. The lungs are otherwise clear. Pancreatic duct stent is again noted. IMPRESSION: No significant change compared to the prior study. No acute process. Electronically signed by: Js Astorga M.D. 01/03/2017 7:25 AM Dictated Date/Time: 01/03/2017 7:23 AM
[2017-01-03 07:38] LABS: BUN/CREATININE RATIO 9.1 (10-20); CREATININE 0.92 mg/dl (0.60-1.20); MAGNESIUM 1.7 mg/dl (1.8-2.4); POTASSIUM 3.9 mmol/L (3.5-5.1)
[2017-01-03 07:41] LABS: ALB/GLOB RATIO 0.5 (0.9-2); PHOSPHORUS 4.2 mg/dl (2.5-4.9)
[2017-01-03] MEDS: BUDESONIDE/FORMOTEROL FUMARATE 160/4.5 60 PUFFS/INHALER INH SCH ×2 (08:41→21:16)
[2017-01-03] MEDS: SUCRALFATE 1 GM TAB PO SCH ×2 (08:42→21:14)
[2017-01-03] MEDS: LISINOPRIL 10 MG TAB PO SCH (08:43)
[2017-01-03] MEDS: POTASSIUM CHLORIDE 10 MEQ TABCR PO SCH ×2 (08:44→21:14)
[2017-01-03] MEDS: DULOXETINE HCL 60 MG CAP PO SCH (08:44)
[2017-01-03] MEDS ORDERED: NURSING VERBAL MED ORDER ONE (09:00)
[2017-01-03] MEDS: PANCREAZE (LIPASE 10,500U) CAP PO SCH ×3 (09:12→16:56)
[2017-01-03] MEDS: CIPROFLOXACIN / D5W 400 MG in PREMIXED IN D5W 200 ML IV SCH ×2 (09:13→21:14)
[2017-01-03] MEDS ORDERED: MoRPHine SULFATE 4 MG/ML 1 ML CARP\\VIAL IV ONE (09:15)
[2017-01-03] MEDS: METRONIDAZOLE / NSS 500 MG in PREMIXED NSS 100 ML IV SCH ×2 (11:38→18:32)
--- NOTE | 2017-01-03 11:48 | Progress Note ---
Medicine Progress Note Date & Time of Visit: Jan 03, 2017 at 11:39. Subjective patient seen resting in bed states pain is about 6/10, more tolerable still on the lower quadrants left>right denies nausea no BM x at least 2 days no hematochezia denies other symptoms Objective Last 8 Hrs Date Time Temp Pulse Resp B/P (MAP) Pulse Ox O2 Delivery O2 Flow Rate FiO2 01/03/17 11:04 36.9 89 18 105/67 (80) 98 Room Air 01/03/17 08:00 95 Room Air 01/03/17 07:52 36.3 104 18 119/76 (90) 95 Room Air 01/03/17 04:00 Room Air 01/03/17 03:56 36.9 97 16 115/72 (86) 96 Room Air Physical Exam: General- oriented x 3, not in distress, speaks in sentences Head- atraumatic Eyes- EOMI, anicteric ENT- oropharynx clear Neck- supple, no JVD, no adenopathy Lungs- clear breath sounds bilaterally Heart- regular rhythm; no murmur, normal rate Abdomen- normal bowel sounds, normal bowel sounds, soft, (+) tenderness on the left>right lower quadrant Extremities- no pretibial edema, no calf tenderness Neuro- alert, oriented x 3;no gross focal deficits Skin- warm & dry Laboratory Results: Last 24 Hours Test 01/03/17 04:44 01/03/17 06:38 01/03/17 06:43 Bedside Glucose 177 mg/dl White Blood Count 22.29 K/uL Red Blood Count 3.24 M/uL Hemoglobin 9.6 g/dL Hematocrit 28.5 % Mean Corpuscular Volume 88.0 fL Mean Corpuscular Hemoglobin 29.6 pg Mean Corpuscular Hemoglobin Concent 33.7 g/dl RDW Standard Deviation 63.4 fL RDW Coefficient of Variation 20.3 % Platelet Count 454 K/uL Mean Platelet Volume 9.8 fL Prothrombin Time 12.8 SECONDS Prothromb Time International Ratio 1.2 Sodium Level 141 mmol/L Potassium Level 3.9 mmol/L Chloride Level 110 mmol/L Carbon Dioxide Level 24 mmol/L Anion Gap 7.0 mmol/L Blood Urea Nitrogen 8 mg/dl Creatinine 0.92 mg/dl Est Creatinine Clear Calc Drug Dose 51.6 ml/min Estimated GFR () 79.0 Estimated GFR (Non- 68.2 BUN/Creatinine Ratio 9.1 Random Glucose 170 mg/dl Calcium Level 8.0 mg/dl Phosphorus Level 4.2 mg/dl Magnesium Level 1.7 mg/dl Total Bilirubin 0.5 mg/dl Aspartate Amino Transf (AST/SGOT) 17 U/L Alanine Aminotransferase (ALT/SGPT) 17 U/L Alkaline Phosphatase 151 U/L Total Protein 4.9 gm/dl Albumin 1.7 gm/dl Globulin 3.2 gm/dl Albumin/Globulin Ratio 0.5 Assessment & Plan This is a 61 year old female with a PMH of pancreatic head adenocarcinoma s/p Whipple's with ongoing chemotherapy, insulin dependent DM2, HTN, depression/ anxiety, hypothyroidism, hx. of C. diff colitis in August/September of 2016 presents with diarrhea/weakness IMPRESSION AND PLAN: 1. Left lower quadrant abdominal pain with tenderness. -- CT scan done in [place]: wall thickening- stomach, small intestines, portions of colon -- possible Diverticulitis? -- ff up blood cultures -- pain about the same WBC decreased from 32 to 22, afebrile continue Cipro + Metro IV soft diet -- will consult GI 2. Leukocytosis, could be secondary to diverticulitis. -- CXR no pneumonia -- u/a: pending -- WBC improving from 32 to 22 afebrile -- monitor 3. Chronic obstructive pulmonary disease -- stable 4. Pancreatic cancer with chronic pancreatitis status post Whipple procedure. She got last chemo last Saturday and she has been on Xeloda. We will hold Xeloda at this time. 5. Hypothyroidism. Continue with replacement. 6. Depression. Continue with antidepressant medications. 7. Diabetes type 2. We will put her on sliding scale coverage 8. Deep venous thrombosis prophylaxis with Lovenox. 9. Gastrointestinal prophylaxis with PPI. DVT ppx subq heparin FULL CODE Dispo pending will order PT/OT anticipate d/c home when medically stable Current Inpatient Medications: Current Inpatient Medications Medications (Trade) Dose Ordered Sig/Jesse Route Start Time Stop Time Status Last Admin Dose Admin Potassium Chloride/Sodium Chloride 1,000 ml @ 125 mls/hr Q8H IV 01/03/17 00:19 02/02/17 00:18 01/03/17 08:40 125 MLS/HR Acetaminophen (Tylenol Tab) 650 mg Q4H PRN PO 01/03/17 00:30 02/02/17 00:29 Ondansetron HCl (Zofran Inj) 4 mg Q6H PRN IV 01/03/17 00:30 02/02/17 00:29 Albuterol (Ventolin Hfa Inhaler) 2 puffs Q4 PRN INH 01/03/17 00:30 02/02/17 00:29 Budesonide/ Formoterol Fumarate (Symbicort 160/ 4.5 Inh) 2 puffs BID INH 01/03/17 09:00 02/02/17 08:59 01/03/17 08:41 2 PUFFS Cholestyramine Resin (Questran Powder Light) 4 gm DAILY PRN PO 01/03/17 00:30 02/02/17 00:29 Dicyclomine HCl (Bentyl Cap) 10 mg Q8 PRN PO 01/03/17 00:30 02/02/17 00:29 01/03/17 08:42 10 MG Diphenoxylate HCl/ Atropine (Lomotil Tab) 1 tab QID PRN PO 01/03/17 00:30 02/02/17 00:29 Duloxetine HCl (Cymbalta Cap) 60 mg DAILY PO 01/03/17 09:00 02/02/17 08:59 01/03/17 08:44 60 MG Albuterol/ Ipratropium (Duoneb) 3 ml Q4H PRN INH 01/03/17 00:30 02/02/17 00:29 Levothyroxine Sodium (Synthroid Tab) 100 mcg DAILYBB PO 01/03/17 06:00 02/02/17 05:59 01/03/17 05:49 100 MCG Lisinopril (Zestril Tab) 10 mg DAILY PO 01/03/17 09:00 02/02/17 08:59 01/03/17 08:43 10 MG Lorazepam (Ativan Tab) 0.5 mg Q12 PRN PO 01/03/17 00:30 02/02/17 00:29 01/03/17 01:25 0.5 MG Ondansetron HCl (Zofran Tab) 4 mg Q8 PRN PO 01/03/17 00:30 02/02/17 00:29 Oxycodone HCl (Roxicodone Immediate Rel Tab) 5 mg Q4 PRN PO 01/03/17 00:30 01/17/17 00:29 01/03/17 01:24 5 MG Potassium Chloride (Klor-Con M10) 10 meq BID PO 01/03/17 09:00 02/02/17 08:59 01/03/17 08:44 10 MEQ Prochlorperazine Maleate (Compazine Tab) 10 mg Q6H PRN PO 01/03/17 00:30 02/02/17 00:29 01/03/17 05:44 10 MG Rizatriptan Benzoate (Maxalt Tab) 5 mg UD PRN PO 01/03/17 00:30 02/02/17 00:29 Sucralfate (Carafate Tab) 1 gm BID PO 01/03/17 09:00 02/02/17 08:59 01/03/17 08:42 1 GM Topiramate (Topamax Tab) 50 mg HS PO 01/03/17 21:00 02/02/17 20:59 Tramadol HCl (Ultram Tab) 50 mg Q4H PRN PO 01/03/17 00:30 02/02/17 00:29 01/03/17 05:20 50 MG Insulin Aspart (novoLOG ASPART) SLIDING SCALE G... ACHS SC 01/03/17 07:00 02/02/17 06:59 Amylase/Lipase/ Protease (Pancreaze (Lipase 10,500U) Cap) 1 cap AC PO 01/03/17 07:00 02/02/17 06:59 01/03/17 09:12 1 CAP Glucose (Glucose 40% Gel) 15-30 GRAMS 15 GRAMS... UD PRN PO 01/03/17 01:45 02/02/17 01:44 Glucose (Glucose Chew Tab) 4-8 Tablets 4 Tabl... UD PRN PO 01/03/17 01:45 02/02/17 01:44 Dextrose (Dextrose 50% 50ML Syringe) 25-50ML OF 50% DW IV FOR... UD PRN IV 01/03/17 01:45 02/02/17 01:44 Glucagon (Glucagon Inj) 1 mg UD PRN SQ 01/03/17 01:45 02/02/17 01:44 Ciprofloxacin/ Dextrose 400 mg/ Prmx 200 ml @ 100 mls/hr Q12 IV 01/03/17 09:00 01/13/17 08:59 01/03/17 09:13 100 MLS/HR Metronidazole 500 mg/Prmx 100 ml @ 100 mls/hr Q8H IV 01/03/17 10:00 01/13/17 09:59 Morphine Sulfate (MoRPHine SULFATE INJ) 4 mg Q4H PRN IV 01/03/17 09:15 01/17/17 05:14 Heparin Sodium (Porcine) (Heparin Sq 5000 Unit/0.5ml) 5,000 unit Q8 SQ 01/03/17 14:00 02/02/17 13:59
--- NOTE | 2017-01-03 12:27 | Gastrointestinal Consultation ---
Gastrointestinal Consultation Date of Consultation: Jan 03, 2017 Attending Physician: Carole Consulting Physician: Enrico Reason for Consultation: abdominal pain History of Present Illness Patient is a 61 year old female hx of pancreatic cancer s/p Whipple 07/2016, hx of c. diff infection 08/2016 treated with vanco per pt, currently ongoing chemo for pancreatic ca who is a transfer from [facility]. She presented to the ED for evaluation of severe abdominal pain. Pt was seen and evaluated this afternoon. She was recently admitted and discharged from [facility] and GI was following for ileus - surgery was consulted who had no additional recommendations as pt was passing stools. She was eating lunch when I saw her. She tells me she has had a BM since Saturday evening/Saturday morning and has not passed any flatus in over 48 hours. Yesterday, developed abrupt onset LLQ pain with radiation to her RLQ. Pain is sharp. No associated symptoms. Denies nausea or vomiting. Did have dry heaves last night for about 30 minutes. Typically avoids narcotics. No fever, chills. WBC was 34 at [facility] and was started on cipro/flagyl for concern of diverticulitis. CT 01/02/17: pancreatic stent in place, evidence of whipple, no evidence of bowel obstruction, moderate stool, thickening of the gastric wall and small bowel loops, anasarca, pelvic ascites, normal appendix KUB 01/03/16: gas pattern normal without obstruction, gaseous distention of transverse colon Past Medical/Surgical History Medical Problems: (1) Diarrhea Status: Acute (2) Sepsis Status: Acute Family History Diabetes mellitus FH: heart disease Hypertension Social History Smoking Status: Former Smoker Drug Use: none Marital Status: Housing Status: lives with significant other Occupation Status: retired Allergies Coded Allergies: Penicillins (Verified Allergy, Severe, ANAPHYLAXIS, 12/24/16) Sulfa Antibiotics (Verified Allergy, Severe, ANAPHYLAXIS, 12/24/16) Moxifloxacin (Verified Allergy, Intermediate, ITCHINESS/SKIN IRRITATION, ) Nickel (Unverified Allergy, Unknown, LOCAL SKIN IRRIRATION, 12/24/16) Current Medications Home Meds and Scripts Medications Dose Route/Sig Max Daily Dose Days Date Category Dose Instructions Creon (Pancrelipase (Lipase-Protease-) 1 Cap Cap 36,000 01/02/17 Reported Micro-K Ext Rel (Potassium Chloride) 10 Meq Capcr 10 Meq PO BID 01/02/17 Reported Advil (Ibuprofen) 200 Mg Tab 200 Mg PO 01/02/17 Reported Cholestyramine Light (Cholestyramine) 4 Gm Pack 4 Gm PO DAILY PRN 30 12/27/16 Rx Topamax (Topiramate) 50 Mg Tab 50 Mg PO HS 12/24/16 Reported Zofran (Ondansetron HCl) 4 Mg Tab 4 Mg PO Q8 PRN 12/24/16 Reported Symbicort 160/4.5 Inhaler (Budesonide/Formoterol Fumarate) Aero 2 Puffs INH BID 12/24/16 Reported Proventil Hfa (Albuterol Sulfate) 108 Mcg/Act Aer 2 Puffs INH Q4 PRN 12/24/16 Reported Duoneb (Ipratropium-Albuterol) 3 Ml Nebu 1 Treatment INH Q4H PRN 12/24/16 Reported Lomotil (Diphenoxylate HCl/Atropine) Tab 1 Tab PO QID PRN 12/24/16 Reported Dicyclomine Hcl 10 Mg Cap 10 Mg PO Q8 PRN 30 12/24/16 Reported Sucralfate 1 Gm Tab 1 Gm PO BID 12/24/16 Reported Prinivil (Lisinopril) 10 Mg Tab 10 Mg PO DAILY 12/24/16 Reported Ativan (Lorazepam) 0.5 Mg Tab 0.5 Mg PO Q12 PRN 12/24/16 Reported Roxicodone Ir (Oxycodone HCl) 5 Mg Tab 5-10 Mg PO Q4 PRN 12/24/16 Reported Maxalt (Rizatriptan Benzoate) 5 Mg Tab 5 Mg PO UD PRN 12/24/16 Reported Compazine (Prochlorperazine Maleate) 10 Mg Tab 10 Mg PO Q6H PRN 12/24/16 Reported Xeloda (Capecitabine) 500 Mg Tab 500 Mg PO UD 12/24/16 Reported 3 tablets by mouth twice a day for 2 weeks followed by 1 week off. Ultram (Tramadol Hcl) 50 Mg Tab 50 Mg PO Q4H PRN 10/05/13 Reported PRN PAIN Cymbalta (Duloxetine Hcl) 60 Mg Cap 60 Mg PO DAILY 10/05/13 Reported Synthroid (Levothyroxine Sodium) 100 Mcg Tab 100 Mcg PO DAILY 10/05/13 Reported Review of Systems Constitutional: No fever, No chills Respiratory: No cough, No shortness of breath Cardiac: + edema (bilateral lower extremity edema, new since last admission), No chest pain Abdomen: + pain, + constipation, No nausea, No vomiting, No diarrhea, No GI bleeding, No dysphagia, No odynophagia Physical Exam Date Time Temp Pulse Resp B/P (MAP) Pulse Ox O2 Delivery O2 Flow Rate FiO2 01/03/17 11:04 36.9 89 18 105/67 (80) 98 Room Air 01/03/17 08:00 95 Room Air 01/03/17 07:52 36.3 104 18 119/76 (90) 95 Room Air 01/03/17 04:00 Room Air 01/03/17 03:56 36.9 97 16 115/72 (86) 96 Room Air 01/02/17 23:59 Room Air 01/02/17 23:10 36.8 82 18 125/82 98 Room Air General Appearance: no apparent distress Eyes: PERRL ENT: hearing grossly normal Neck: supple Respiratory/Chest: lungs clear, normal breath sounds Cardiovascular: regular rate, rhythm Abdomen: soft, no organomegaly, no pulsatile mass, + abnormal bowel sounds ( hypoactive ), + tenderness (x 4, worse in LLQ) Neurologic/Psych: alert, normal mood/affect, oriented x 3 Skin: normal color, no jaundice Laboratory Results Last 24 Hours Test 01/03/17 04:44 01/03/17 06:38 01/03/17 06:43 Bedside Glucose 177 mg/dl White Blood Count 22.29 K/uL Red Blood Count 3.24 M/uL Hemoglobin 9.6 g/dL Hematocrit 28.5 % Mean Corpuscular Volume 88.0 fL Mean Corpuscular Hemoglobin 29.6 pg Mean Corpuscular Hemoglobin Concent 33.7 g/dl RDW Standard Deviation 63.4 fL RDW Coefficient of Variation 20.3 % Platelet Count 454 K/uL Mean Platelet Volume 9.8 fL Prothrombin Time 12.8 SECONDS Prothromb Time International Ratio 1.2 Sodium Level 141 mmol/L Potassium Level 3.9 mmol/L Chloride Level 110 mmol/L Carbon Dioxide Level 24 mmol/L Anion Gap 7.0 mmol/L Blood Urea Nitrogen 8 mg/dl Creatinine 0.92 mg/dl Est Creatinine Clear Calc Drug Dose 51.6 ml/min Estimated GFR () 79.0 Estimated GFR (Non- 68.2 BUN/Creatinine Ratio 9.1 Random Glucose 170 mg/dl Calcium Level 8.0 mg/dl Phosphorus Level 4.2 mg/dl Magnesium Level 1.7 mg/dl Total Bilirubin 0.5 mg/dl Aspartate Amino Transf (AST/SGOT) 17 U/L Alanine Aminotransferase (ALT/SGPT) 17 U/L Alkaline Phosphatase 151 U/L Total Protein 4.9 gm/dl Albumin 1.7 gm/dl Globulin 3.2 gm/dl Albumin/Globulin Ratio 0.5 Impression Patient is a 61 year old female with pancreatic CA on chemo/radiation who is a direct transfer from [facility] for abdominal pain and leukocytosis. CT at [facility] without evidence of obstruction but suggestive of bowel thickening and anasarca. Due to leukocytosis she was started on cipro/flagyl for suspected diverticulitis. She has had passed any flatus or stool in over 72h and has a history of SBO/ileus during last admission and bowel sounds are hypoactive on exam. Will need a repeat KUB to rule out pathological dilation and obstruction Plan - NPO - KUB - hold antidiarrheal agents - limit narcotics use - can consider a dose of Relistor if KUB is without obstruction - OK to continue cipro/flagyl - Blood cx urine cx per primary team for leukocytosis Additional recommendation pending results of KUB ATTESTATION: I have performed a history and physical examination of this patient and reviewed the electronic record. Specifically, on review of X-rays with the radiologist, this appears to be an ileus rather than mechanical SBO and there is improvement from prior films. We will start Relistor, if no response try IV erythromycin. I have discussed the case with ALTON Anderson. The above note reflects my findings, conclusions, and recommendations. Tyler Weston MD
--- NOTE | 2017-01-03 13:41 | DIAGNOSTIC IMAGING REPORT ---
KUB CLINICAL HISTORY: abnormal bowel sounds, history of ileus COMPARISON STUDY: 12/27/2016 FINDINGS: There is pneumobilia. There are surgical clips present with thin the upper abdomen. There is a transversely oriented wire like structure within the upper abdomen unchanged the preceding study. This may represent a pancreatic stent. There are mildly dilated left mid abdominal small bowel loops measuring up to 5 cm in diameter. Gas is present within the colon. IMPRESSION: Nonspecific bowel gas pattern. Mildly dilated small bowel loops measuring up to 5 cm. Electronically signed by: Oj Tan M.D. 01/03/2017 1:40 PM Dictated Date/Time: 01/03/2017 1:38 PM
[2017-01-03] MEDS: HEPARIN SOD 5000 UNIT/0.5 ML CARP SQ SCH ×3 (14:00→20:21)
[2017-01-03 14:15] LABS: URINE APPEARANCE CLEAR (CLEAR); URINE BILIRUBIN NEG (NEG); URINE COLOR YELLOW; URINE EPITHELIAL CELL AUTO >30 /lpf (0-5); URINE NITRITE NEG (NEG); URINE PH 5.5 (4.5-7.5); URINE SPECIFIC GRAVITY 1.031 (1.000-1.030); UROBILINOGEN NEG (NEG); ZZUR CULT IF INDIC CLEAN CATCH NO
[2017-01-03 14:28] LABS: MANUAL MICROSCOPIC REQUIRED? NO; REVIEW REQ? NO
[2017-01-03] MEDS: TOPIRAMATE 25 MG TAB PO SCH (21:16)
[2017-01-03] MEDS: MoRPHine SULFATE 4 MG/ML 1 ML CARP\\VIAL IV PRN (21:23)
[2017-01-04] VITALS (18 sets, daily range): BP systolic 103–159; BP diastolic 54–88; PULSE 66–91; TEMP 36.7–37.2; O2SAT 95–99
[2017-01-04] MEDS: METRONIDAZOLE / NSS 500 MG in PREMIXED NSS 100 ML IV SCH ×3 (01:43→20:59)
[2017-01-04] MEDS: LEVOTHYROXINE 100 MCG TAB PO SCH (06:21)
[2017-01-04] MEDS: HEPARIN SOD 5000 UNIT/0.5 ML CARP SQ SCH ×3 (06:21→21:05)
[2017-01-04] MEDS: PANCREAZE (LIPASE 10,500U) CAP PO SCH ×3 (06:21→17:02)
[2017-01-04] MEDS: POTASSIUM CHLORIDE 10 MEQ TABCR PO SCH ×2 (08:00→21:01)
[2017-01-04] MEDS: DULOXETINE HCL 60 MG CAP PO SCH (08:00)
[2017-01-04] MEDS: SUCRALFATE 1 GM TAB PO SCH ×2 (08:00→21:00)
[2017-01-04] MEDS: BUDESONIDE/FORMOTEROL FUMARATE 160/4.5 60 PUFFS/INHALER INH SCH ×2 (08:00→20:59)
[2017-01-04] MEDS: LISINOPRIL 10 MG TAB PO SCH (08:01)
[2017-01-04] MEDS: CIPROFLOXACIN / D5W 400 MG in PREMIXED IN D5W 200 ML IV SCH ×2 (08:01→20:58)
[2017-01-04] MEDS: INSULIN ASPART 100 UNITS/ML 3 ML PEN SC SCH ×4 (08:01→20:41)
[2017-01-04] MEDS: NSS + 20MEQ KCL 1000ML 1,000 ML IV SCH ×2 (08:01→20:58)
--- NOTE | 2017-01-04 08:33 | Gastroenterology Progress Note ---
Progress Note Date of Service: Jan 04, 2017 Subjective Pt evaluation today including: conversation w/ patient, physical exam, chart review, lab review, review of studies, review of inpatient medication list Pt still having abd pain, but improved from admission. Denies any n/v. Passing flatus but no stool. She tolerated regular breakfast today. Review of Systems Constitutional: No fever, No chills Respiratory: No cough, No shortness of breath Cardiac: No chest pain Abdomen: + pain, No nausea, No vomiting Medications Current Inpatient Medications Medications (Trade) Dose Ordered Sig/Jesse Route Start Time Stop Time Status Last Admin Dose Admin Potassium Chloride/Sodium Chloride 1,000 ml @ 125 mls/hr Q8H IV 01/03/17 00:19 02/02/17 00:18 01/04/17 08:01 125 MLS/HR Acetaminophen (Tylenol Tab) 650 mg Q4H PRN PO 01/03/17 00:30 02/02/17 00:29 Ondansetron HCl (Zofran Inj) 4 mg Q6H PRN IV 01/03/17 00:30 02/02/17 00:29 01/03/17 21:22 4 MG Albuterol (Ventolin Hfa Inhaler) 2 puffs Q4 PRN INH 01/03/17 00:30 02/02/17 00:29 Budesonide/ Formoterol Fumarate (Symbicort 160/ 4.5 Inh) 2 puffs BID INH 01/03/17 09:00 02/02/17 08:59 01/04/17 08:00 2 PUFFS Cholestyramine Resin (Questran Powder Light) 4 gm DAILY PRN PO 01/03/17 00:30 02/02/17 00:29 Dicyclomine HCl (Bentyl Cap) 10 mg Q8 PRN PO 01/03/17 00:30 02/02/17 00:29 01/03/17 08:42 10 MG Diphenoxylate HCl/ Atropine (Lomotil Tab) 1 tab QID PRN PO 01/03/17 00:30 02/02/17 00:29 Duloxetine HCl (Cymbalta Cap) 60 mg DAILY PO 01/03/17 09:00 02/02/17 08:59 01/04/17 08:00 60 MG Albuterol/ Ipratropium (Duoneb) 3 ml Q4H PRN INH 01/03/17 00:30 02/02/17 00:29 Levothyroxine Sodium (Synthroid Tab) 100 mcg DAILYBB PO 01/03/17 06:00 02/02/17 05:59 01/04/17 06:21 100 MCG Lisinopril (Zestril Tab) 10 mg DAILY PO 01/03/17 09:00 02/02/17 08:59 01/04/17 08:01 10 MG Lorazepam (Ativan Tab) 0.5 mg Q12 PRN PO 01/03/17 00:30 02/02/17 00:29 01/03/17 23:52 0.5 MG Ondansetron HCl (Zofran Tab) 4 mg Q8 PRN PO 01/03/17 00:30 02/02/17 00:29 Oxycodone HCl (Roxicodone Immediate Rel Tab) 5 mg Q4 PRN PO 01/03/17 00:30 01/17/17 00:29 01/03/17 23:52 5 MG Potassium Chloride (Klor-Con M10) 10 meq BID PO 01/03/17 09:00 02/02/17 08:59 01/04/17 08:00 10 MEQ Prochlorperazine Maleate (Compazine Tab) 10 mg Q6H PRN PO 01/03/17 00:30 02/02/17 00:29 01/03/17 05:44 10 MG Rizatriptan Benzoate (Maxalt Tab) 5 mg UD PRN PO 01/03/17 00:30 02/02/17 00:29 Sucralfate (Carafate Tab) 1 gm BID PO 01/03/17 09:00 02/02/17 08:59 01/04/17 08:00 1 GM Topiramate (Topamax Tab) 50 mg HS PO 01/03/17 21:00 02/02/17 20:59 01/03/17 21:16 50 MG Tramadol HCl (Ultram Tab) 50 mg Q4H PRN PO 01/03/17 00:30 02/02/17 00:29 01/03/17 05:20 50 MG Insulin Aspart (novoLOG ASPART) SLIDING SCALE G... ACHS SC 01/03/17 07:00 9/9/17 06:59 Amylase/Lipase/ Protease (Pancreaze (Lipase 10,500U) Cap) 1 cap AC PO 01/03/17 07:00 02/02/17 06:59 01/04/17 06:21 1 CAP Glucose (Glucose 40% Gel) 15-30 GRAMS 15 GRAMS... UD PRN PO 01/03/17 01:45 02/02/17 01:44 Glucose (Glucose Chew Tab) 4-8 Tablets 4 Tabl... UD PRN PO 01/03/17 01:45 02/02/17 01:44 Dextrose (Dextrose 50% 50ML Syringe) 25-50ML OF 50% DW IV FOR... UD PRN IV 01/03/17 01:45 02/02/17 01:44 Glucagon (Glucagon Inj) 1 mg UD PRN SQ 01/03/17 01:45 02/02/17 01:44 Ciprofloxacin/ Dextrose 400 mg/ Prmx 200 ml @ 100 mls/hr Q12 IV 01/03/17 09:00 01/13/17 08:59 01/04/17 08:01 100 MLS/HR Metronidazole 500 mg/Prmx 100 ml @ 100 mls/hr Q8H IV 01/03/17 10:00 01/13/17 09:59 01/04/17 01:43 100 MLS/HR Morphine Sulfate (MoRPHine SULFATE INJ) 4 mg Q4H PRN IV 01/03/17 09:15 01/17/17 05:14 01/03/17 21:23 4 MG Heparin Sodium (Porcine) (Heparin Sq 5000 Unit/0.5ml) 5,000 unit Q8 SQ 01/03/17 14:00 02/02/17 13:59 01/04/17 06:21 5,000 UNIT Objective Vital Signs Date Time Temp Pulse Resp B/P (MAP) Pulse Ox O2 Delivery O2 Flow Rate FiO2 01/04/17 07:18 36.8 78 16 103/59 (74) 98 Room Air 01/04/17 04:00 36.9 86 20 114/71 (85) 96 Room Air 01/04/17 00:10 36.8 91 20 108/54 (72) 97 Room Air 01/04/17 00:00 Room Air 01/03/17 19:30 37.0 94 18 94/55 (68) 98 Room Air 01/03/17 16:00 95 Room Air 01/03/17 15:19 36.7 87 18 105/64 (78) 99 Room Air 01/03/17 11:04 36.9 89 18 105/67 (80) 98 Room Air Physical Exam General Appearance: WD/WN, no apparent distress Eyes: normal inspection, PERRL, EOMI Neck: supple, no JVD, trachea midline Respiratory/Chest: normal breath sounds, no respiratory distress, no accessory muscle use Cardiovascular: regular rate, rhythm, no gallop, no murmur Abdomen: normal bowel sounds, soft, + tenderness (generalized ) Extremities: normal inspection, no pedal edema, no calf tenderness Neurologic/Psych: alert, normal mood/affect, oriented x 3 Skin: normal color, no jaundice, no rash Laboratory Results Last 24 Hours Test 01/03/17 11:18 01/03/17 16:53 01/03/17 20:39 01/04/17 07:29 Bedside Glucose 205 mg/dl 134 mg/dl 173 mg/dl 112 mg/dl Assessment and Plan Patient is a 61 year old female with pancreatic CA s/p Whipple, on chemo/ radiation who is a direct transfer from [facility] for abdominal pain and leukocytosis. CT at [facility] without evidence of obstruction but suggestive of bowel thickening and anasarca. Due to leukocytosis she was started on cipro/ flagyl for suspected diverticulitis. KUB w/o signs of obstruction, + mild small bowel loop dilation 5cm. CXR grossly normal. She is tolerating regular breakfast w/o N/V. Abd pain is improved. + passing flatus, no BM. Afebrile overnight. AM labs not obtained. Plans - AM labs: CBC, BMP - Cipro/Flagyl x 10 days for suspected diverticulitis - She refuses a laxative at this time. Would encourage ambulation, prune juice, limit narcotics use. May start Colace 100mg BID, Senna 10mg qHS, or Relistor 12mg qother day if constipation. - Blood cx urine cx per primary team for leukocytosis - Will watch peripherally over the weekend, call if any acute problems or questions. ATTESTATION: I have performed a history and physical examination of this patient and reviewed the electronic record. Specifically, on physical examination there is mild diffuse abdominal tenderness. I have discussed the case with ALTON Francis. The above note reflects my findings, conclusions, and recommendations. Tyler Weston MD
[2017-01-04 09:35] LABS: CALCIUM 7.4 mg/dl (8.5-10.1); CREATININE 0.91 mg/dl (0.60-1.20); POTASSIUM 3.5 mmol/L (3.5-5.1)
[2017-01-04 09:59] LABS: HEMATOCRIT 20.8 % (37-47); MEAN CELL VOLUME 89.7 fL (80-100); MEAN CORPUSCULAR HEMOGLOBIN 30.6 pg (25-34); MEAN CORPUSCULAR HGB CONC 34.1 g/dl (32-36); PLATELET COUNT 321 K/uL (130-400); RED BLOOD COUNT 2.32 M/uL (4.2-5.4); WHITE BLOOD COUNT 10.37 K/uL (4.8-10.8)
[2017-01-04] MEDS: OXYCODONE HCL IR 5 MG TAB (IMMEDIATE RELEASE) PO PRN (10:08)
--- NOTE | 2017-01-04 11:11 | Progress Note ---
Medicine Progress Note Date & Time of Visit: Jan 04, 2017 at 11:11. Subjective delayed entry date of service as noted above seen with at bedside states she feels slightly better still has some lower abd pain no BMs yet denies nausea, no chest pain, dyspnea no other symptoms Objective Last 8 Hrs Date Time Temp Pulse Resp B/P (MAP) Pulse Ox O2 Delivery O2 Flow Rate FiO2 01/04/17 07:18 36.8 78 16 103/59 (74) 98 Room Air 01/04/17 04:00 36.9 86 20 114/71 (85) 96 Room Air Physical Exam: General- oriented x 3, not in distress, speaks in sentences Neck- no JVD Lungs-no rales/wheeze, clear b/l Heart- regular rhythm; no murmur, normal rate Abdomen- normal bowel sounds, normal bowel sounds, soft,very mild LLQ tenderness Extremities- no pretibial edema, no calf tenderness Neuro- alert, oriented x 3;no gross focal deficits Skin- warm & dry Laboratory Results: Last 24 Hours Test 01/03/17 11:18 01/03/17 16:53 01/03/17 20:39 01/04/17 07:29 Bedside Glucose 205 mg/dl 134 mg/dl 173 mg/dl 112 mg/dl Test 01/04/17 08:47 White Blood Count 10.37 K/uL Red Blood Count 2.32 M/uL Hemoglobin 7.1 g/dL Hematocrit 20.8 % Mean Corpuscular Volume 89.7 fL Mean Corpuscular Hemoglobin 30.6 pg Mean Corpuscular Hemoglobin Concent 34.1 g/dl RDW Standard Deviation 64.2 fL RDW Coefficient of Variation 20.2 % Platelet Count 321 K/uL Mean Platelet Volume 10.0 fL Sodium Level 140 mmol/L Potassium Level 3.5 mmol/L Chloride Level 110 mmol/L Carbon Dioxide Level 23 mmol/L Anion Gap 7.0 mmol/L Blood Urea Nitrogen 6 mg/dl Creatinine 0.91 mg/dl Est Creatinine Clear Calc Drug Dose 54.1 ml/min Estimated GFR () 80.0 Estimated GFR (Non- 69.1 BUN/Creatinine Ratio 7.0 Random Glucose 156 mg/dl Calcium Level 7.4 mg/dl Date/Time Source Procedure Growth Status 01/03/17 21:34 Urine , Clean Catch Urine Culture Pending Received Assessment & Plan This is a 61 year old female with a PMH of pancreatic head adenocarcinoma s/p Whipple's with ongoing chemotherapy, insulin dependent DM2, HTN, depression/ anxiety, hypothyroidism, hx. of C. diff colitis in August/September of 2016 presents with diarrhea/weakness IMPRESSION AND PLAN: 1. Left lower quadrant abdominal pain with tenderness, likely Diverticulitis -- CT scan done in [place]: wall thickening- stomach, small intestines, portions of colon -- possible Diverticulitis? -- pain improving WBC decreased continue Cipro + Metro IV -- diet advanced -- GI consulted KUB: unrevealing recommend Laxatives, patient declines Anemia - likely from Chemo - 2 units pRBC ordered 2. Leukocytosis, could be secondary to diverticulitis. -- CXR no pneumonia -- u/a: pending -- WBC improving afebrile -- monitor 3. Chronic obstructive pulmonary disease -- stable 4. Pancreatic cancer with chronic pancreatitis status post Whipple procedure. She got last chemo last Saturday and she has been on Xeloda. We will hold Xeloda at this time. 5. Hypothyroidism. Continue with replacement. 6. Depression. Continue with antidepressant medications. 7. Diabetes type 2. sliding scale coverage 8. Deep venous thrombosis prophylaxis with Lovenox. 9. Gastrointestinal prophylaxis with PPI. DVT ppx subq heparin FULL CODE Dispo pending will order PT/OT anticipate d/c home when medically stable Current Inpatient Medications: Current Inpatient Medications Medications (Trade) Dose Ordered Sig/Jesse Route Start Time Stop Time Status Last Admin Dose Admin Potassium Chloride/Sodium Chloride 1,000 ml @ 75 mls/hr [id number] IV 01/03/17 00:19 02/02/17 00:18 01/04/17 08:01 125 MLS/HR Acetaminophen (Tylenol Tab) 650 mg Q4H PRN PO 01/03/17 00:30 02/02/17 00:29 Ondansetron HCl (Zofran Inj) 4 mg Q6H PRN IV 01/03/17 00:30 02/02/17 00:29 01/03/17 21:22 4 MG Albuterol (Ventolin Hfa Inhaler) 2 puffs Q4 PRN INH 01/03/17 00:30 02/02/17 00:29 Budesonide/ Formoterol Fumarate (Symbicort 160/ 4.5 Inh) 2 puffs BID INH 01/03/17 09:00 02/02/17 08:59 01/04/17 08:00 2 PUFFS Cholestyramine Resin (Questran Powder Light) 4 gm DAILY PRN PO 01/03/17 00:30 02/02/17 00:29 Dicyclomine HCl (Bentyl Cap) 10 mg Q8 PRN PO 01/03/17 00:30 02/02/17 00:29 01/03/17 08:42 10 MG Diphenoxylate HCl/ Atropine (Lomotil Tab) 1 tab QID PRN PO 01/03/17 00:30 02/02/17 00:29 Duloxetine HCl (Cymbalta Cap) 60 mg DAILY PO 01/03/17 09:00 02/02/17 08:59 01/04/17 08:00 60 MG Albuterol/ Ipratropium (Duoneb) 3 ml Q4H PRN INH 01/03/17 00:30 02/02/17 00:29 Levothyroxine Sodium (Synthroid Tab) 100 mcg DAILYBB PO 01/03/17 06:00 02/02/17 05:59 01/04/17 06:21 100 MCG Lisinopril (Zestril Tab) 10 mg DAILY PO 01/03/17 09:00 02/02/17 08:59 01/04/17 08:01 10 MG Lorazepam (Ativan Tab) 0.5 mg Q12 PRN PO 01/03/17 00:30 02/02/17 00:29 01/03/17 23:52 0.5 MG Ondansetron HCl (Zofran Tab) 4 mg Q8 PRN PO 01/03/17 00:30 02/02/17 00:29 Oxycodone HCl (Roxicodone Immediate Rel Tab) 5 mg Q4 PRN PO 01/03/17 00:30 01/17/17 00:29 01/04/17 10:08 5 MG Potassium Chloride (Klor-Con M10) 10 meq BID PO 01/03/17 09:00 02/02/17 08:59 01/04/17 08:00 10 MEQ Prochlorperazine Maleate (Compazine Tab) 10 mg Q6H PRN PO 01/03/17 00:30 02/02/17 00:29 01/03/17 05:44 10 MG Rizatriptan Benzoate (Maxalt Tab) 5 mg UD PRN PO 01/03/17 00:30 02/02/17 00:29 Sucralfate (Carafate Tab) 1 gm BID PO 01/03/17 09:00 02/02/17 08:59 01/04/17 08:00 1 GM Topiramate (Topamax Tab) 50 mg HS PO 01/03/17 21:00 02/02/17 20:59 01/03/17 21:16 50 MG Tramadol HCl (Ultram Tab) 50 mg Q4H PRN PO 01/03/17 00:30 02/02/17 00:29 01/03/17 05:20 50 MG Insulin Aspart (novoLOG ASPART) SLIDING SCALE G... ACHS SC 01/03/17 07:00 02/02/17 06:59 Amylase/Lipase/ Protease (Pancreaze (Lipase 10,500U) Cap) 1 cap AC PO 01/03/17 07:00 02/02/17 06:59 01/04/17 06:21 1 CAP Glucose (Glucose 40% Gel) 15-30 GRAMS 15 GRAMS... UD PRN PO 01/03/17 01:45 02/02/17 01:44 Glucose (Glucose Chew Tab) 4-8 Tablets 4 Tabl... UD PRN PO 01/03/17 01:45 02/02/17 01:44 Dextrose (Dextrose 50% 50ML Syringe) 25-50ML OF 50% DW IV FOR... UD PRN IV 01/03/17 01:45 02/02/17 01:44 Glucagon (Glucagon Inj) 1 mg UD PRN SQ 01/03/17 01:45 02/02/17 01:44 Ciprofloxacin/ Dextrose 400 mg/ Prmx 200 ml @ 100 mls/hr Q12 IV 01/03/17 09:00 01/13/17 08:59 01/04/17 08:01 100 MLS/HR Metronidazole 500 mg/Prmx 100 ml @ 100 mls/hr Q8H IV 01/03/17 10:00 01/13/17 09:59 01/04/17 10:08 100 MLS/HR Morphine Sulfate (MoRPHine SULFATE INJ) 4 mg Q4H PRN IV 01/03/17 09:15 01/17/17 05:14 01/03/17 21:23 4 MG Heparin Sodium (Porcine) (Heparin Sq 5000 Unit/0.5ml) 5,000 unit Q8 SQ 01/03/17 14:00 02/02/17 13:59 01/04/17 06:21 5,000 UNIT
[2017-01-04] MEDS ORDERED: SENNA 8.6 MG TAB PO PRN (11:15)
[2017-01-04] MEDS ORDERED: DOCUSATE SODIUM 100 MG CAP PO PRN (11:15)
--- NOTE | 2017-01-04 12:18 | Clinical Documentation Query ---
CLINICAL DOCUMENTATION QUERY Dr. LOZOYA, In your clinical opinion is this patient being managed for: ( ) Ileus likely causing abd pain. ( ) Other explanation of clinical findings (Please Explain) ( ) Unable to determine (Please Define) ( ) Need to Discuss ( ) Not Agree The medical record reflects the following clinical findings, treatment, and risk factors. Clinical Indicators: 61 yo female presenting with lower abd pain. Seen by GI whose documentation reflects that upon radiology review, "this appears to be an ileus" Treatment :relistor, GI consult, NPO initially, KUB, IV fluids, erythrocin IV, encourage ambulation, prune juice, limit narcotics use. May start Colace 100mg BID, Senna 10mg qHS Risk Factors: chronic pancreatitis, pancreatic cancer, hx of abd surgery Please clarify and document your clinical opinion in the progress notes and discharge summary. Terms such as "probable", "suspected", "likely", "questionable", "possible", or "still to be ruled out" are acceptable. IF IN AGREEMENT, YOU MUST DOCUMENT ABOVE DIAGNOSTIC STATEMENT IN DAILY PROGRESS NOTES AND DISCHARGE SUMMARY. This document is not part of the patient's record. Thank You, Phuong Fabian, RN [phone]
[2017-01-04] MEDS ORDERED: METHYLNALTREXONE BROMIDE INJ 12 MG/0.6 ML SYR SQ ONE (13:00)
[2017-01-04] MEDS ORDERED: ERYTHROMYCIN IV 250 MG in SODIUM CHLORIDE 0.9% 250ML 250 ML IV ONE (13:00)
[2017-01-04] MEDS: TRAMADOL HCL 50 MG TAB PO PRN (13:51)
[2017-01-04] MEDS: BOOST BREEZE NUTRITION DRINK 1 BOX PO SCH (17:00)
[2017-01-04] MEDS: TOPIRAMATE 25 MG TAB PO SCH (21:00)
[2017-01-04] MEDS: MoRPHine SULFATE 4 MG/ML 1 ML CARP\\VIAL IV PRN (21:06)
[2017-01-04] MEDS: LORAZEPAM 0.5 MG TAB PO PRN (21:06)
[2017-01-05] VITALS (8 sets, daily range): BP systolic 138–172; BP diastolic 81–98; PULSE 63–74; TEMP 36.8–37.1; O2SAT 96–99
[2017-01-05] MEDS: METRONIDAZOLE / NSS 500 MG in PREMIXED NSS 100 ML IV SCH ×3 (05:10→20:36)
[2017-01-05] MEDS: HEPARIN SOD 5000 UNIT/0.5 ML CARP SQ SCH ×3 (06:15→20:40)
[2017-01-05] MEDS: LEVOTHYROXINE 100 MCG TAB PO SCH (06:16)
[2017-01-05] MEDS: PANCREAZE (LIPASE 10,500U) CAP PO SCH ×3 (06:17→16:59)
[2017-01-05] MEDS: INSULIN ASPART 100 UNITS/ML 3 ML PEN SC SCH ×4 (06:30→20:56)
[2017-01-05] MEDS: CIPROFLOXACIN / D5W 400 MG in PREMIXED IN D5W 200 ML IV SCH ×2 (07:52→20:36)
[2017-01-05] MEDS: BOOST BREEZE NUTRITION DRINK 1 BOX PO SCH ×2 (07:52→17:00)
[2017-01-05] MEDS: BUDESONIDE/FORMOTEROL FUMARATE 160/4.5 60 PUFFS/INHALER INH SCH ×2 (07:52→20:37)
[2017-01-05] MEDS: SUCRALFATE 1 GM TAB PO SCH ×2 (07:53→20:37)
[2017-01-05] MEDS: DULOXETINE HCL 60 MG CAP PO SCH (07:53)
[2017-01-05] MEDS: LISINOPRIL 10 MG TAB PO SCH (07:53)
[2017-01-05] MEDS: POTASSIUM CHLORIDE 10 MEQ TABCR PO SCH ×2 (07:53→20:38)
[2017-01-05] MEDS: NSS + 20MEQ KCL 1000ML 1,000 ML IV SCH (07:53)
[2017-01-05 08:58] LABS: BASO % 0.2 %; BASO ABS # 0.02 K/uL (0-0.2); COMPLETE YES; EOS % 0.5 %; IG% 0.2 %; LYMPH % 16.3 %; LYMPH ABS # 1.63 K/uL (1.2-3.4); MEAN CELL VOLUME 88.6 fL (80-100); MEAN CORPUSCULAR HEMOGLOBIN 30.4 pg (25-34); MEAN CORPUSCULAR HGB CONC 34.3 g/dl (32-36); MEAN PLATELET VOLUME 9.9 fL (7.4-10.4); MONO % 0.8 %; PLATELET COUNT 270 K/uL (130-400); RED BLOOD COUNT 3.16 M/uL (4.2-5.4); WHITE BLOOD COUNT 10.02 K/uL (4.8-10.8)
[2017-01-05 09:21] LABS: BUN/CREATININE RATIO 4.8 (10-20); CALCIUM 7.5 mg/dl (8.5-10.1); CREATININE 0.77 mg/dl (0.60-1.20); POTASSIUM 3.3 mmol/L (3.5-5.1)
[2017-01-05] MEDS ORDERED: CLONIDINE HCL 0.1 MG TAB PO PRN (15:30)
--- NOTE | 2017-01-05 15:52 | Progress Note ---
Medicine Progress Note Date & Time of Visit: Jan 05, 2017 at 15:52. Subjective patient seen resting in bed, comfortable states she feels better today (+) BMs, less abdominal pain no nausea no chest pain, dyspnea, palpitations, dizziness denies other symptoms no other symptoms Objective Last 8 Hrs Date Time Temp Pulse Resp B/P (MAP) Pulse Ox O2 Delivery O2 Flow Rate FiO2 01/05/17 15:09 37.1 64 16 168/94 (118) 98 Room Air 01/05/17 11:33 36.8 63 18 150/93 (112) 97 01/05/17 08:00 96 Room Air Physical Exam: General- oriented x 3, not in distress, speaks in sentences Eyes- anicteric Lungs-clear bs bl Heart- regular rhythm; no murmur, normal rate Abdomen- normal bowel sounds, normal bowel sounds, soft,minimal LLQ tenderness Extremities- no pretibial edema, no calf tenderness Neuro- alert, oriented x 3;no gross focal deficits Skin- warm & dry Laboratory Results: Last 24 Hours Test 01/04/17 16:47 01/04/17 20:18 01/05/17 07:43 01/05/17 08:22 Bedside Glucose 150 mg/dl 174 mg/dl 95 mg/dl White Blood Count 10.02 K/uL Red Blood Count 3.16 M/uL Hemoglobin 9.6 g/dL Hematocrit 28.0 % Mean Corpuscular Volume 88.6 fL Mean Corpuscular Hemoglobin 30.4 pg Mean Corpuscular Hemoglobin Concent 34.3 g/dl Platelet Count 270 K/uL Mean Platelet Volume 9.9 fL Neutrophils (%) (Auto) 82.0 % Lymphocytes (%) (Auto) 16.3 % Monocytes (%) (Auto) 0.8 % Eosinophils (%) (Auto) 0.5 % Basophils (%) (Auto) 0.2 % Neutrophils # (Auto) 8.22 K/uL Lymphocytes # (Auto) 1.63 K/uL Monocytes # (Auto) 0.08 K/uL Eosinophils # (Auto) 0.05 K/uL Basophils # (Auto) 0.02 K/uL RDW Standard Deviation 54.9 fL RDW Coefficient of Variation 17.5 % Immature Granulocyte % (Auto) 0.2 % Immature Granulocyte # (Auto) 0.02 K/uL Sodium Level 140 mmol/L Potassium Level 3.3 mmol/L Chloride Level 109 mmol/L Carbon Dioxide Level 24 mmol/L Anion Gap 7.0 mmol/L Blood Urea Nitrogen 4 mg/dl Creatinine 0.77 mg/dl Est Creatinine Clear Calc Drug Dose 65.1 ml/min Estimated GFR () 98.0 Estimated GFR (Non- 84.5 BUN/Creatinine Ratio 4.8 Random Glucose 128 mg/dl Calcium Level 7.5 mg/dl Test 01/05/17 11:29 01/05/17 15:50 Bedside Glucose 156 mg/dl Assessment & Plan This is a 61 year old female with a PMH of pancreatic head adenocarcinoma s/p Whipple's with ongoing chemotherapy, insulin dependent DM2, HTN, depression/ anxiety, hypothyroidism, hx. of C. diff colitis in August/September of 2016 presents with diarrhea/weakness IMPRESSION AND PLAN: Left lower quadrant abdominal pain with tenderness, likely Diverticulitis -- CT scan done in [place]: wall thickening- stomach, small intestines, portions of colon -- pain improving daily WBC decreased continue Cipro + Metro IV -- diet advanced -- improving overall (+) BMs -- GI consulted KUB: unrevealing recommend Laxatives, patient declines Anemia - likely from Chemo - 2 units pRBC ordered - Hg increased from 7 to 9.6 Hypertension asymptomatic d/c IV fluids PRN clonidine Leukocytosis, could be secondary to diverticulitis. , resolving -- CXR no pneumonia -- u/a: negative -- WBC improving afebrile -- monitor Chronic obstructive pulmonary disease -- stable Pancreatic cancer with chronic pancreatitis status post Whipple procedure. She got last chemo last Saturday and she has been on Xeloda. We will hold Xeloda at this time. Hypothyroidism. Continue with replacement. Depression. Continue with antidepressant medications. Diabetes type 2. sliding scale coverage DVT ppx subq heparin FULL CODE Dispo pending anticipate d/c home when medically stable, tomorrow Current Inpatient Medications: Current Inpatient Medications Medications (Trade) Dose Ordered Sig/Jesse Route Start Time Stop Time Status Last Admin Dose Admin Acetaminophen (Tylenol Tab) 650 mg Q4H PRN PO 01/03/17 00:30 02/02/17 00:29 01/04/17 13:50 650 MG Ondansetron HCl (Zofran Inj) 4 mg Q6H PRN IV 01/03/17 00:30 02/02/17 00:29 01/03/17 21:22 4 MG Albuterol (Ventolin Hfa Inhaler) 2 puffs Q4 PRN INH 01/03/17 00:30 02/02/17 00:29 Budesonide/ Formoterol Fumarate (Symbicort 160/ 4.5 Inh) 2 puffs BID INH 01/03/17 09:00 02/02/17 08:59 01/05/17 07:52 2 PUFFS Cholestyramine Resin (Questran Powder Light) 4 gm DAILY PRN PO 01/03/17 00:30 02/02/17 00:29 Dicyclomine HCl (Bentyl Cap) 10 mg Q8 PRN PO 01/03/17 00:30 02/02/17 00:29 01/03/17 08:42 10 MG Diphenoxylate HCl/ Atropine (Lomotil Tab) 1 tab QID PRN PO 01/03/17 00:30 02/02/17 00:29 Duloxetine HCl (Cymbalta Cap) 60 mg DAILY PO 01/03/17 09:00 02/02/17 08:59 01/05/17 07:53 60 MG Albuterol/ Ipratropium (Duoneb) 3 ml Q4H PRN INH 01/03/17 00:30 02/02/17 00:29 Levothyroxine Sodium (Synthroid Tab) 100 mcg DAILYBB PO 01/03/17 06:00 02/02/17 05:59 01/05/17 06:16 100 MCG Lisinopril (Zestril Tab) 10 mg DAILY PO 01/03/17 09:00 02/02/17 08:59 01/05/17 07:53 10 MG Lorazepam (Ativan Tab) 0.5 mg Q12 PRN PO 01/03/17 00:30 02/02/17 00:29 01/04/17 21:06 0.5 MG Ondansetron HCl (Zofran Tab) 4 mg Q8 PRN PO 01/03/17 00:30 02/02/17 00:29 Oxycodone HCl (Roxicodone Immediate Rel Tab) 5 mg Q4 PRN PO 01/03/17 00:30 01/17/17 00:29 01/04/17 10:08 5 MG Potassium Chloride (Klor-Con M10) 10 meq BID PO 01/03/17 09:00 02/02/17 08:59 01/05/17 07:53 10 MEQ Prochlorperazine Maleate (Compazine Tab) 10 mg Q6H PRN PO 01/03/17 00:30 02/02/17 00:29 01/03/17 05:44 10 MG Rizatriptan Benzoate (Maxalt Tab) 5 mg UD PRN PO 01/03/17 00:30 02/02/17 00:29 Sucralfate (Carafate Tab) 1 gm BID PO 01/03/17 09:00 02/02/17 08:59 01/05/17 07:53 1 GM Topiramate (Topamax Tab) 50 mg HS PO 01/03/17 21:00 02/02/17 20:59 01/04/17 21:00 50 MG Tramadol HCl (Ultram Tab) 50 mg Q4H PRN PO 01/03/17 00:30 02/02/17 00:29 01/04/17 13:51 50 MG Insulin Aspart (novoLOG ASPART) SLIDING SCALE G... ACHS SC 01/03/17 07:00 02/02/17 06:59 Amylase/Lipase/ Protease (Pancreaze (Lipase 10,500U) Cap) 1 cap AC PO 01/03/17 07:00 02/02/17 06:59 01/05/17 11:16 1 CAP Glucose (Glucose 40% Gel) 15-30 GRAMS 15 GRAMS... UD PRN PO 01/03/17 01:45 02/02/17 01:44 Glucose (Glucose Chew Tab) 4-8 Tablets 4 Tabl... UD PRN PO 01/03/17 01:45 02/02/17 01:44 Dextrose (Dextrose 50% 50ML Syringe) 25-50ML OF 50% DW IV FOR... UD PRN IV 01/03/17 01:45 02/02/17 01:44 Glucagon (Glucagon Inj) 1 mg UD PRN SQ 01/03/17 01:45 02/02/17 01:44 Ciprofloxacin/ Dextrose 400 mg/ Prmx 200 ml @ 100 mls/hr Q12 IV 01/03/17 09:00 8/20/17 08:59 01/05/17 07:52 100 MLS/HR Morphine Sulfate (MoRPHine SULFATE INJ) 4 mg Q4H PRN IV 01/03/17 09:15 01/17/17 05:14 01/04/17 21:06 4 MG Heparin Sodium (Porcine) (Heparin Sq 5000 Unit/0.5ml) 5,000 unit Q8 SQ 01/03/17 14:00 02/02/17 13:59 01/05/17 13:27 5,000 UNIT Docusate Sodium (coLACE CAP) 100 mg BID PRN PO 01/04/17 11:15 02/03/17 11:14 Senna (Senokot Tab) 8.6 mg DAILY PRN PO 01/04/17 11:15 02/03/17 11:14 Metronidazole 500 mg/Prmx 100 ml @ 100 mls/hr Q8H IV 01/04/17 21:00 01/13/17 20:59 01/05/17 13:26 100 MLS/HR Heparin Sodium (Porcine) (Heparin 100 Unit/ml 5ml Flush) 5 ml PRN PRN IV 01/05/17 00:15 02/04/17 00:14 Enteral Nutritional Formula (Boost Breeze Nutritional Drink) 1 box BIDM PO 01/05/17 17:00 02/03/17 16:59 Clonidine HCl (Catapres Tab) 0.1 mg Q6H PRN PO 01/05/17 15:30 02/04/17 15:29 Potassium Chloride (Klor-Con M10) 40 meq 1600 ONCE PO 01/05/17 16:00 01/05/17 16:01
[2017-01-05] MEDS ORDERED: POTASSIUM CHLORIDE 10 MEQ TABCR PO ONE (16:00)
[2017-01-05] MEDS: MAGNESIUM SULFATE 1GM / D5W 1 GM in PREMIXED IN D5W 100 ML IV SCH ×2 (17:42→18:24)
[2017-01-05] MEDS: TOPIRAMATE 25 MG TAB PO SCH (20:39)
[2017-01-05] MEDS: MoRPHine SULFATE 4 MG/ML 1 ML CARP\\VIAL IV PRN (21:47)
[2017-01-05] MEDS: LORAZEPAM 0.5 MG TAB PO PRN (21:47)
[2017-01-06 02:30] VITALS: BP 139/93; PULSE 64
[2017-01-06 03:53] VITALS: BP 148/89; PULSE 59; TEMP 37; O2SAT 97
[2017-01-06] MEDS: METRONIDAZOLE / NSS 500 MG in PREMIXED NSS 100 ML IV SCH (04:50)
[2017-01-06] MEDS: LEVOTHYROXINE 100 MCG TAB PO SCH (05:49)
[2017-01-06] MEDS: PANCREAZE (LIPASE 10,500U) CAP PO SCH (05:50)
[2017-01-06] MEDS: HEPARIN SOD 5000 UNIT/0.5 ML CARP SQ SCH (05:54)
[2017-01-06] MEDS: INSULIN ASPART 100 UNITS/ML 3 ML PEN SC SCH (06:30)
[2017-01-06 07:06] LABS: BUN/CREATININE RATIO 2.8 (10-20); CALCIUM 7.3 mg/dl (8.5-10.1); CREATININE 0.65 mg/dl (0.60-1.20); MAGNESIUM 1.8 mg/dl (1.8-2.4); POTASSIUM 3.5 mmol/L (3.5-5.1)
[2017-01-06 07:10] VITALS: BP 134/73; PULSE 61; TEMP 36.8; O2SAT 97
[2017-01-06] MEDS: BUDESONIDE/FORMOTEROL FUMARATE 160/4.5 60 PUFFS/INHALER INH SCH (07:39)
[2017-01-06] MEDS: POTASSIUM CHLORIDE 10 MEQ TABCR PO SCH (07:41)
[2017-01-06] MEDS: DULOXETINE HCL 60 MG CAP PO SCH (07:41)
[2017-01-06] MEDS: SUCRALFATE 1 GM TAB PO SCH (07:42)
[2017-01-06] MEDS: LISINOPRIL 10 MG TAB PO SCH (07:43)
[2017-01-06] MEDS: BOOST BREEZE NUTRITION DRINK 1 BOX PO SCH (07:45)
[2017-01-06 11:02] VITALS: BP 134/73; PULSE 61; TEMP 36.8; O2SAT 97
[2017-01-06] MEDS ORDERED: Boost Nutritional Drink PO (11:08)
[2017-01-06] MEDS ORDERED: CPR500 PO (11:08)
[2017-01-06] MEDS ORDERED: MTR500 PO (11:08)
[2017-01-06] MEDS ORDERED: LACT10CA3 PO (11:08)
[2017-01-06 11:12] LABS: BASO % 0.2 %; BASO ABS # 0.01 K/uL (0-0.2); COMPLETE YES; EOS % 0.5 %; HEMATOCRIT 27.3 % (37-47); IG% 0.4 %; LYMPH % 30.7 %; LYMPH ABS # 1.72 K/uL (1.2-3.4); MEAN CELL VOLUME 88.9 fL (80-100); MEAN CORPUSCULAR HEMOGLOBIN 30.3 pg (25-34); MEAN CORPUSCULAR HGB CONC 34.1 g/dl (32-36); MEAN PLATELET VOLUME 10.1 fL (7.4-10.4); MONO % 4.8 %; NEUT % 63.4 %; PLATELET COUNT 244 K/uL (130-400); RED BLOOD COUNT 3.07 M/uL (4.2-5.4); WHITE BLOOD COUNT 5.61 K/uL (4.8-10.8)
--- NOTE | 2017-01-06 11:12 | Discharge Instructions ---
Discharge Instructions Date of Service Jan 06, 2017. Admission Reason for Admission: Acute Cholitis Discharge Discharge Diagnosis / Problem: ACUTE DIVERTICULITIS Discharge Goals Goal(s): Diagnostic testing, Therapeutic intervention Activity Recommendations Activity Limitations: as noted below (INCREASE ACTIVITY GRADUALLY TOLERATED) Lifting Limitations: until after follow-up appointment Exercise/Sports Limitations: until after follow-up appointment . Instructions / Follow-Up Instructions / Follow-Up PLEASE REVIEW YOUR NEW MEDICATIONS DIRECTED AND FOLLOW INSTRUCTIONS CAREFULLY. HOLD XELODA FOR NOW. THE ONCOLOGY CLINIC WILL CALL YOU TO ADVISE ON WHEN TO RESUME THIS. DRINK LOTS OF FLUIDS. TAKE PROBIOTIC EVERYDAY. MAINTAIN LOW FIBER DIET UNTIL YOU FINISH THE ANTIBIOTICS. PLEASE CALL PRIMARY CARE PHYSICIAN OR RETURN TO ER IMMEDIATELY IF WITH RECURRENCE OF SYMPTOMS, INCREASING ABDOMINAL PAIN, NAUSEA, DIARRHEA, FEVER/CHILLS. FOLLOW UP WITH PRIMARY CARE PHYSICIAN IN 1 WEEK. ONCOLOGY OFFICE WILL CALL YOU REGARDING ADVICE ON NEXT CHEMOTHERAPY SESSION. Current Hospital Diet Patient's current hospital diet: Regular Diet Discharge Diet Recommended Diet: AHA Diet (Heart Healthy) Pending Studies Studies pending at discharge: yes List of pending studies: REPEAT BLOOD WORK C/O PRIMARY CARE PHYSICIAN. Medical Emergencies . Who to Call and When: Medical Emergencies: If at any time you feel your situation is an emergency, please call 911 immediately. . Non-Emergent Contact Non-Emergency issues call your: Primary Care Provider, Oncologist Call Non-Emergent contact if: you have a fever, your pain is not controlled, your pain is worsening, you have any medication questions . . "Provider Documentation" section prepared by Alex Duvall. . VTE Core Measure Inpt VTE Proph given/why not?: Unfractionated heparin SQ
--- NOTE | 2017-01-06 11:20 | Progress Note ---
Medicine Progress Note Date & Time of Visit: Jan 06, 2017 at 10:59. Subjective patient states she feels much better abdominal pain continues to resolve has normal BMs, no blood denies chest pain, dyspnea, dizziness ambulates with no problems denies other symptoms states she is ready and would like to be discharged today Objective Last 8 Hrs Date Time Temp Pulse Resp B/P (MAP) Pulse Ox O2 Delivery O2 Flow Rate FiO2 01/06/17 08:00 Room Air 01/06/17 07:10 36.8 61 16 134/73 (93) 97 Room Air 01/06/17 03:53 37.0 59 16 148/89 (108) 97 Room Air Physical Exam: General- oriented x 3, not in distress, speaks in sentences Eyes- anicteric Lungs-clear bs bl, no rales/wheezes Heart- regular rhythm; no murmur, normal rate Abdomen- normal bowel sounds, normal bowel sounds, soft,very minimal LLQ tenderness Extremities- no pretibial edema, no calf tenderness Neuro- alert, oriented x 3;no gross focal deficits Skin- warm & dry Laboratory Results: Last 24 Hours Test 01/05/17 11:29 01/05/17 15:50 01/05/17 16:39 01/05/17 20:30 Bedside Glucose 156 mg/dl 167 mg/dl 170 mg/dl Magnesium Level 1.4 mg/dl Test 01/06/17 05:31 01/06/17 07:30 01/06/17 10:52 Sodium Level 143 mmol/L Potassium Level 3.5 mmol/L Chloride Level 110 mmol/L Carbon Dioxide Level 26 mmol/L Anion Gap 7.0 mmol/L Blood Urea Nitrogen 2 mg/dl Creatinine 0.65 mg/dl Est Creatinine Clear Calc Drug Dose 74.4 ml/min Estimated GFR () 112.6 Estimated GFR (Non- 97.2 BUN/Creatinine Ratio 2.8 Random Glucose 96 mg/dl Calcium Level 7.3 mg/dl Magnesium Level 1.8 mg/dl Bedside Glucose 94 mg/dl Assessment & Plan This is a 61 year old female with a PMH of pancreatic head adenocarcinoma s/p Whipple's with ongoing chemotherapy, insulin dependent DM2, HTN, depression/ anxiety, hypothyroidism, hx. of C. diff colitis in August/September of 2016 presents with diarrhea/weakness Left lower quadrant abdominal pain with tenderness, likely Diverticulitis -- CT scan done in [facility] [place]: wall thickening- stomach, small intestines, portions of colon -- GI consulted KUB: unrevealing -- pain improved daily WBC decreased from 22 to 10k, afebrile placed on 3 days of Cipro + Metro IV -- diet advanced -- continue 7 day course of Cipro and Metro PO to complete 10 day treatment -- ff up with PCP in 1 week Anemia - likely from Chemo - 2 units pRBC ordered - Hg increased from 7 to 9.6 - repeat CBC as outpatient Hypertension continue usual medications monitor as outpatient Leukocytosis, could be secondary to diverticulitis. , resolving -- CXR no pneumonia -- u/a: negative -- WBC improved from 22 to 10k afebrile -- monitor Chronic obstructive pulmonary disease -- stable Pancreatic cancer with chronic pancreatitis status post Whipple procedure. -- advised to hold chemo and Xeloda until antibiotic course -- will contact Oncology office and sign out patient Hypothyroidism. Continue with replacement. Depression. Continue with antidepressant medications. Diabetes type 2. sliding scale coverage DVT ppx subq heparin FULL CODE Dispo d/c home today ff up with PCP in 3-5 days Current Inpatient Medications: Current Inpatient Medications Medications (Trade) Dose Ordered Sig/Jesse Route Start Time Stop Time Status Last Admin Dose Admin Acetaminophen (Tylenol Tab) 650 mg Q4H PRN PO 01/03/17 00:30 02/02/17 00:29 01/04/17 13:50 650 MG Ondansetron HCl (Zofran Inj) 4 mg Q6H PRN IV 01/03/17 00:30 02/02/17 00:29 01/03/17 21:22 4 MG Albuterol (Ventolin Hfa Inhaler) 2 puffs Q4 PRN INH 01/03/17 00:30 02/02/17 00:29 Budesonide/ Formoterol Fumarate (Symbicort 160/ 4.5 Inh) 2 puffs BID INH 01/03/17 09:00 02/02/17 08:59 01/06/17 07:39 2 PUFFS Cholestyramine Resin (Questran Powder Light) 4 gm DAILY PRN PO 01/03/17 00:30 02/02/17 00:29 Dicyclomine HCl (Bentyl Cap) 10 mg Q8 PRN PO 01/03/17 00:30 02/02/17 00:29 01/03/17 08:42 10 MG Diphenoxylate HCl/ Atropine (Lomotil Tab) 1 tab QID PRN PO 01/03/17 00:30 02/02/17 00:29 Duloxetine HCl (Cymbalta Cap) 60 mg DAILY PO 01/03/17 09:00 02/02/17 08:59 01/06/17 07:41 60 MG Albuterol/ Ipratropium (Duoneb) 3 ml Q4H PRN INH 01/03/17 00:30 02/02/17 00:29 Levothyroxine Sodium (Synthroid Tab) 100 mcg DAILYBB PO 01/03/17 06:00 02/02/17 05:59 01/06/17 05:49 100 MCG Lisinopril (Zestril Tab) 10 mg DAILY PO 01/03/17 09:00 02/02/17 08:59 01/06/17 07:43 10 MG Lorazepam (Ativan Tab) 0.5 mg Q12 PRN PO 01/03/17 00:30 02/02/17 00:29 01/05/17 21:47 0.5 MG Ondansetron HCl (Zofran Tab) 4 mg Q8 PRN PO 01/03/17 00:30 02/02/17 00:29 Oxycodone HCl (Roxicodone Immediate Rel Tab) 5 mg Q4 PRN PO 01/03/17 00:30 01/17/17 00:29 01/04/17 10:08 5 MG Potassium Chloride (Klor-Con M10) 10 meq BID PO 01/03/17 09:00 02/02/17 08:59 01/06/17 07:41 10 MEQ Prochlorperazine Maleate (Compazine Tab) 10 mg Q6H PRN PO 01/03/17 00:30 02/02/17 00:29 01/03/17 05:44 10 MG Rizatriptan Benzoate (Maxalt Tab) 5 mg UD PRN PO 01/03/17 00:30 02/02/17 00:29 Sucralfate (Carafate Tab) 1 gm BID PO 01/03/17 09:00 02/02/17 08:59 01/06/17 07:42 1 GM Topiramate (Topamax Tab) 50 mg HS PO 01/03/17 21:00 02/02/17 20:59 01/05/17 20:39 50 MG Tramadol HCl (Ultram Tab) 50 mg Q4H PRN PO 01/03/17 00:30 02/02/17 00:29 01/04/17 13:51 50 MG Insulin Aspart (novoLOG ASPART) SLIDING SCALE G... ACHS SC 01/03/17 07:00 02/02/17 06:59 Amylase/Lipase/ Protease (Pancreaze (Lipase 10,500U) Cap) 1 cap AC PO 01/03/17 07:00 02/02/17 06:59 01/06/17 05:50 1 CAP Glucose (Glucose 40% Gel) 15-30 GRAMS 15 GRAMS... UD PRN PO 01/03/17 01:45 02/02/17 01:44 Glucose (Glucose Chew Tab) 4-8 Tablets 4 Tabl... UD PRN PO 01/03/17 01:45 02/02/17 01:44 Dextrose (Dextrose 50% 50ML Syringe) 25-50ML OF 50% DW IV FOR... UD PRN IV 01/03/17 01:45 02/02/17 01:44 Glucagon (Glucagon Inj) 1 mg UD PRN SQ 01/03/17 01:45 02/02/17 01:44 Ciprofloxacin/ Dextrose 400 mg/ Prmx 200 ml @ 100 mls/hr Q12 IV 01/03/17 09:00 01/13/17 08:59 01/05/17 20:36 100 MLS/HR Morphine Sulfate (MoRPHine SULFATE INJ) 4 mg Q4H PRN IV 01/03/17 09:15 01/17/17 05:14 01/05/17 21:47 4 MG Heparin Sodium (Porcine) (Heparin Sq 5000 Unit/0.5ml) 5,000 unit Q8 SQ 01/03/17 14:00 02/02/17 13:59 01/06/17 05:54 5,000 UNIT Docusate Sodium (coLACE CAP) 100 mg BID PRN PO 01/04/17 11:15 02/03/17 11:14 Senna (Senokot Tab) 8.6 mg DAILY PRN PO 01/04/17 11:15 02/03/17 11:14 Metronidazole 500 mg/Prmx 100 ml @ 100 mls/hr Q8H IV 01/04/17 21:00 01/13/17 20:59 01/06/17 04:50 100 MLS/HR Heparin Sodium (Porcine) (Heparin 100 Unit/ml 5ml Flush) 5 ml PRN PRN IV 01/05/17 00:15 02/04/17 00:14 01/06/17 06:40 5 ML Enteral Nutritional Formula (Boost Breeze Nutritional Drink) 1 box BIDM PO 01/05/17 17:00 02/03/17 16:59 Clonidine HCl (Catapres Tab) 0.1 mg Q6H PRN PO 01/05/17 15:30 02/04/17 15:29 01/05/17 23:53 0.1 MG
--- NOTE | 2017-01-06 11:26 | Discharge Summary ---
Discharge Summary Date of Service Jan 06, 2017. Discharge Summary Admission Date: Jan 02, 2017 at 23:10 Discharge Date: Jan 06, 2017 Principal Diagnosis: Left lower quadrant abdominal pain with tenderness, likely Diverticulitis Secondary Diagnoses/Problems: Please refer to hospital course below. Procedures: pRBC transfusion 2 units KUB CLINICAL HISTORY: abnormal bowel sounds, history of ileus COMPARISON STUDY: 12/27/2016 FINDINGS: There is pneumobilia. There are surgical clips present with thin the upper abdomen. There is a transversely oriented wire like structure within the upper abdomen unchanged the preceding study. This may represent a pancreatic stent. There are mildly dilated left mid abdominal small bowel loops measuring up to 5 cm in diameter. Gas is present within the colon. IMPRESSION: Nonspecific bowel gas pattern. Mildly dilated small bowel loops measuring up to 5 cm. 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 Please refer to hospital course below for further details. Medication Reconciliation New Medications: Ciprofloxacin (Ciprofloxacin HCl) 500 Mg Tab 1 TAB PO BID for 7 Days, #14 TABS 0 Refills Lactobacillus-Inulin (Culturelle) 1 Cap Cap 1 CAP PO DAILY for 14 Days, #14 CAP Metronidazole (Metronidazole) 500 Mg Tab 1 TAB PO TID for 7 Days, #21 TABS 0 Refills [Boost Nutritional Drink] () 1 LIQD 1 BOX PO BIDM for 30 Days, #60 BTL Continued Medications: Albuterol Sulfate (Proventil Hfa) 108 Mcg/Act Aer 2 PUFFS INH Q4 PRN for SOB/Wheezing Budesonide/Formoterol Fumarate (Symbicort 160/4.5 Inhaler ) Aero 2 PUFFS INH BID, INHALER Cholestyramine (Cholestyramine Light) 4 Gm Pack 4 GM PO DAILY PRN for Diarrhea for 30 Days, #30 PKT 3 Refills Dicyclomine Hcl (Dicyclomine Hcl) 10 Mg Cap 10 MG PO Q8 PRN for abdominal pain for 30 Days, #90 CAP 3 Refills Diphenoxylate/Atropine (Lomotil) Tab 1 TAB PO QID PRN for Diarrhea, TAB Duloxetine Hcl (Cymbalta) 60 Mg Cap 60 MG PO DAILY, CAP Ibuprofen Tab (Advil) 200 Mg Tab 200 MG PO, TAB Ipratropium-Albuterol (Duoneb) 3 Ml Nebu 1 TREATMENT INH Q4H PRN for Shortness of Breath, INHA Levothyroxine Sodium (Synthroid) 100 Mcg Tab 100 MCG PO DAILY, TAB Lisinopril (Prinivil) 10 Mg Tab 10 MG PO DAILY, TAB Lorazepam (Ativan) 0.5 Mg Tab 0.5 MG PO Q12 PRN for ANXIETY/INSOMNIA, TAB Ondansetron Hcl (Zofran) 4 Mg Tab 4 MG PO Q8 PRN for Nausea, TAB Oxycodone Ir (Roxicodone Ir) 5 Mg Tab 5-10 MG PO Q4 PRN for Moderate Pain, TAB Pancrelipase (Lipase-Protease- (Creon) 1 Cap Cap 73748 Potassium Chloride (Micro-K Ext Rel) 10 Meq Capcr 10 MEQ PO BID, CAP Prochlorperazine Maleate (Compazine) 10 Mg Tab 10 MG PO Q6H PRN for NAUSEA, TAB Rizatriptan Benzoate (Maxalt) 5 Mg Tab 5 MG PO UD PRN for Migraine, TAB Sucralfate (Sucralfate) 1 Gm Tab 1 GM PO BID, TAB Topiramate (Topamax) 50 Mg Tab 50 MG PO HS, TAB Tramadol Hcl (Ultram) 50 Mg Tab 50 MG PO Q4H PRN for Pain, TAB PRN PAIN Discontinued Medications: Capecitabine (Xeloda) 500 Mg Tab 500 MG PO UD, TAB 3 tablets by mouth twice a day for 2 weeks followed by 1 week off. Admission Information HPI (per Admitting provider): CHIEF COMPLAINT: Lower abdominal pain since early this morning. HISTORY OF PRESENT COMPLAINT: She is a 61-year-old female with significant past medical history including chronic pancreatitis, status post Whipple procedure, noted to have pancreatic cancer, GERD, hypertension, hypothyroidism and diabetes who apparently has been complaining of abdominal pain in the left lower quadrant since this morning. The pain was very mild initially, that went off but at 11 o'clock it came back with more severe pain, associated with nausea but no vomiting and the pain has been there since then constantly with occasional exacerbation. She has had her last bowel movement yesterday morning and usually she has 4-20 bowel movements secondary to chronic pancreatitis. She went to [facility] Emergency Room and a CAT scan of the abdomen and pelvis did show acute colitis and from that point with high white count, she was transferred to [facility] for continuation of care. The ER physician did talk to the on-call oncologist, Dr. Gilliland, before the transfer. She received IV ciprofloxacin and Flagyl in the Emergency Room before transfer. In [facility], she denies to have any significant abdominal pain and does not have any chest pain, shortness of breath, nausea, vomiting, and no numbness or tingling in the extremities. No fever, chills or rigors. No acute arthritis. Physical Exam (per Admitting): GENERAL: On examination on the medical floor, she was still having some pain in the lower abdomen in left side. VITAL SIGNS: Temperature 36.8, pulse of 85, blood pressure 104/58, saturation 96%. HEENT: Unremarkable. NECK: Supple. No JVD, no bruit. CHEST: Decreased breath sounds but no wheezing and/or crackles. HEART: S1, S2 regular. ABDOMEN: Soft. Tender in the epigastrium and the hypogastrium and also left lower quadrant. No guarding, no rigidity. Bowel sounds present. EXTREMITIES: Trace edema bilaterally in the foot. CENTRAL NERVOUS SYSTEM: She was alert, awake, oriented x3. MUSCULOSKELETAL: No acute arthritis involving any joint. Hospital Course This is a 61 year old female with a PMH of pancreatic head adenocarcinoma s/p Whipple's with ongoing chemotherapy, insulin dependent DM2, HTN, depression/ anxiety, hypothyroidism, hx. of C. diff colitis in August/September of 2016 presents with diarrhea/weakness Left lower quadrant abdominal pain with tenderness, likely Diverticulitis -- CT scan done in [place]: wall thickening- stomach, small intestines, portions of colon -- GI consulted KUB: unrevealing -- placed on 3 days of Cipro + Metro IV -- pain improved daily WBC decreased from 22 to 10k, afebrile -- diet advanced -- continue 7 day course of Cipro and Metro PO to complete 10 day treatment -- ff up with PCP in 1 week Anemia - likely from Chemo - 2 units pRBC ordered - Hg increased from 7 to 9.6 - repeat CBC as outpatient Hypertension continue usual medications monitor as outpatient Leukocytosis, could be secondary to diverticulitis. , resolving -- CXR no pneumonia -- u/a: negative -- WBC improved from 22 to 10k afebrile -- monitor Chronic obstructive pulmonary disease -- stable Pancreatic cancer with chronic pancreatitis status post Whipple procedure. -- advised to hold chemo and Xeloda until antibiotic course -- will contact Oncology office and sign out patient Hypothyroidism. Continue with replacement. Depression. Continue with antidepressant medications. Diabetes type 2. sliding scale coverage Dispo d/c home ff up with PCP in 3-5 days ff up with Dr. Goldstein for Oncology Total time spent on discharge = 30 minutes This includes examination of the patient, discharge planning, medication reconciliation, and communication with other providers. Discharge Instructions Discharge Instructions Date of Service Jan 06, 2017. Admission Reason for Admission: Acute Cholitis Discharge Discharge Diagnosis / Problem: ACUTE DIVERTICULITIS Discharge Goals Goal(s): Diagnostic testing, Therapeutic intervention Activity Recommendations Activity Limitations: as noted below (INCREASE ACTIVITY GRADUALLY TOLERATED) Lifting Limitations: until after follow-up appointment Exercise/Sports Limitations: until after follow-up appointment . Instructions / Follow-Up Instructions / Follow-Up PLEASE REVIEW YOUR NEW MEDICATIONS DIRECTED AND FOLLOW INSTRUCTIONS CAREFULLY. HOLD XELODA FOR NOW. THE ONCOLOGY CLINIC WILL CALL YOU TO ADVISE ON WHEN TO RESUME THIS. DRINK LOTS OF FLUIDS. TAKE PROBIOTIC EVERYDAY. MAINTAIN LOW FIBER DIET UNTIL YOU FINISH THE ANTIBIOTICS. PLEASE CALL PRIMARY CARE PHYSICIAN OR RETURN TO ER IMMEDIATELY IF WITH RECURRENCE OF SYMPTOMS, INCREASING ABDOMINAL PAIN, NAUSEA, DIARRHEA, FEVER/CHILLS. FOLLOW UP WITH PRIMARY CARE PHYSICIAN IN 1 WEEK. ONCOLOGY OFFICE WILL CALL YOU REGARDING ADVICE ON NEXT CHEMOTHERAPY SESSION. Current Hospital Diet Patient's current hospital diet: Regular Diet Discharge Diet Recommended Diet: AHA Diet (Heart Healthy) Pending Studies Studies pending at discharge: yes List of pending studies: REPEAT BLOOD WORK C/O PRIMARY CARE PHYSICIAN. Medical Emergencies . Who to Call and When: Medical Emergencies: If at any time you feel your situation is an emergency, please call 911 immediately. . Non-Emergent Contact Non-Emergency issues call your: Primary Care Provider, Oncologist Call Non-Emergent contact if: you have a fever, your pain is not controlled, your pain is worsening, you have any medication questions . . "Provider Documentation" section prepared by Alex Duvall. . VTE Core Measure Inpt VTE Proph given/why not?: Unfractionated heparin SQ
== END 2017-01-06 11:47 | disposition home or self-care (01) | DRG 392 ==
LOC: C.2T 23:10 → ENRESERV 01-03 11:53 → C.4E 01-03 13:24
PROVIDERS: ADMIT Internal Medicine; ATTEND Internal Medicine
DX: K57.32 Diverticulitis of large intestine without perforation or abscess without bleeding (principal); C25.0 Malignant neoplasm of head of pancreas; K86.1 Other chronic pancreatitis; D64.81 Anemia due to antineoplastic chemotherapy; I10 Essential (primary) hypertension; J44.9 Chronic obstructive pulmonary disease, unspecified; E03.9 Hypothyroidism, unspecified; F32.9 Major depressive disorder, single episode, unspecified; E11.9 Type 2 diabetes mellitus without complications; Z90.49 Acquired absence of other specified parts of digestive tract; Z87.891 Personal history of nicotine dependence; Z86.19 Personal history of other infectious and parasitic diseases; Z79.1 Long term (current) use of non-steroidal anti-inflammatories (NSAID); Z79.899 Other long term (current) drug therapy; Z88.0 Allergy status to penicillin; Z88.1 Allergy status to other antibiotic agents; Z88.2 Allergy status to sulfonamides; Z83.3 Family history of diabetes mellitus; Z82.49 Family history of ischemic heart disease and other diseases of the circulatory system